=== PATIENT | female | born 1955 | race Caucasian/White ===

== ENCOUNTER 2024-01-23 23:01 | Inpatient (IN) | payer MEDICARE, OTHER, SELFPAY ==
[2024-01-23] VITALS (9 sets, daily range): BP systolic 92–142; BP diastolic 56–107; BMI 55.7
--- NOTE | 2024-01-23 19:40 | ED.GENMED ---
History of Present Illness
General
Chief Complaint: Change in Mental Status
Source: patient and care home
Exam Limitations: none
Time Seen by Provider: 01/23/24 19:18
Nursing documentation reviewed up to this point in time: agreed with
History of Present Illness
History of Present Illness:
68-year-old female with past medical history of hypertension hyperlipidemia, previous stroke, hypothyroidism, bipolar disorder presenting to the emergency department today with concerns of fatigue and sleepiness. Apparently she has been falling
asleep more than usual at her nursing facility. She believes that she may have cellulitis of her left leg which she cannot name the antibiotic that she is currently on she believes she is on an antibiotic at this point. The paperwork does indicate
potentially clindamycin. She is unsure how long she has been on this. She otherwise denies any specific issues. She denies any chest pain shortness of breath nausea vomiting numbness weakness abdominal pain palpitation. She does claim to feel
somewhat sleepy.
Past History
Past History
ED Past Medical History: Arrthythmia (Atrial fibrillation), CVA, GERD, HTN, Hypercholesterolemia, Hypothyroidism, Psychiatric (Bipolar, depression, ) and Other (Migraines, Gout, Cellulitis, Renal calculus, essential tremors, Sleep apnea, PVD)
ED Past Surgical History: Cholecystectomy
Social History
Tobacco: Non-smoker
Alcohol: None
Drug: None
Personal:
Living: care home (Rehab)
Review of Systems
Review of Systems
Allergies reviewed?: Yes
All Other Systems: ROS reviewed and negative except as documented in HPI and ROS
Phy Exam
Physical Exam
Physical Exam:
GENERAL: Alert , in no apparent distress
EYE: pupils equal and reactive
NECK: Supple, no significant adenopathy.
ENT: o/p clr, mmm.
CARDIAC: Regular rate and rhythm .
LUNGS: Clear breath sounds bilaterally, no acute respiratory distress, no wheezes/rales/rhonchi
ABDOMEN: Soft, without focal tenderness, no r/g, no cvat
NEUROLOGICAL: Alert and oriented, no focal neuro deficits
SKIN: Left leg is red and warm from the top of the foot spanning across the ankle joint to just below the knee mainly anteriorly tender throughout the area. She claims that this has been present over the past few weeks worsening over the past few
days. Warm and dry, skin intact.
MUSCULOSKELETAL: No edema, well perfused.
PSYCH: Normal and appropriate interaction.
Course
Orders/Labs/Results
Orders:
Orders
01/23/24 19:37
EKG- Treatment ONCE
0.9% Sodium Chloride 250 ml [Nss] 250 ml IV BOLUS
01/23/24 19:38
Chest [CR Chest - 2 Views ] Urgent
Comment:
Reason For Exam: cough
01/23/24 20:46
CBC/With Diff [Complete Blood Count/With Diff] Urgent
CMP [Comprehensive Metabolic Panel] Urgent
Lactic Acid Urgent
Magnesium Urgent
TSH Reflex To Free T4 Urgent
01/23/24 21:49
0.9% Sodium Chloride 500 ml [Nss] 500 ml IV BOLUS
01/23/24 22:35
Vancomycin [Vancocin] 2,000 mg 0.9% Sodium Chloride 500 ml [Nss] 500 ml IV NOW
01/23/24 22:37
Admit/Transfer Patient As Directed
Co-Sign Provider:
Level of Care: Inpatient admission
Assign to:: Telemetry
Physician / Group: silvina
Diagnosis: cellulitis
Reason for Telemetry: Arrhythmia
Date to Stop Telemetry: 01/26/24
Time to Stop Telemetry: 11:00
Reason for Hospitalization: cellulitis
Expected length of stay greater than two midnights?: Yes
ELOS- Estimated Length of Stay in days: 2
I certify the patient meets the requirements for IP care: Yes
Code Status As Directed
Resuscitation Status: Do not resuscitate
Reached after discussion with pt or family/Healthcare POA: Yes
DNR Bracelet Application ONCE
PRN Pain Medication Management As Directed
May give lesser potent ordered pain med per pt: Yes
preference::
Protocol:: Medication orders for pain may be administered in a
manner that supports deferring to patient preference
when the pt is:
- Requesting an ordered lesser potent pain medication.
Least to most potent pain medications are defined
as: acetaminophen < NSAID < tramadol < opioids
(morphine, oxycodone, hydromorphone).
- Requesting a lesser dose of the same medication IF
ORDERED.
- Requesting a less intrusive route of administration
if both routes are prescribed by the provider (PO <
IV).
01/24/24 02:52
Acetaminophen [Tylenol] 650 mg PO Q4HPRN PRN
Bisacodyl [Dulcolax] 10 mg RECTAL DAILYPRN PRN
Ipratropium/Albuterol Sulfate [Duoneb] 3 ml INH R Q6HPRN PRN
Magnesium Hydroxide [Milk of Magnesia] 30 ml PO DAILYPRN PRN
VANCOMYCIN Pharmacy to Dose [VANCOCIN Pharmacy to Dose] 1 each Pharmacy To Prepare [Call Pharmacy To Prepare] 0 ml IV PER PROTOCOL
clobetasol 1 applic TOPICAL [id number] PRN
zinc oxide 1 applic TOPICAL DAILYPRN PRN
01/24/24 02:52
Activity As Directed
Activity Level: As Tolerated
Vital Signs As Directed
Frequency: Per unit guidelines
CR Chest Portable - 1 View Urgent
Comment:
Reason For Exam: cough
Reason Study Needs to be Portable: Unable to Transport
DX Deep Vein Thrombosis Video Routine
01/24/24 03:28
Arterial Blood Gas Urgent
%Oxygen/Room Air: rrom
01/24/24 04:11
Loperamide [Imodium] 2 mg PO DAILYPRN PRN
01/24/24 04:17
Phosphate Enema [Fleet Phosphate Enema-Adult] 118 ml RECTAL DAILYPRN PRN
01/24/24 05:23
Complete Blood Count/With Diff IN AM
Comprehensive Metabolic Panel IN AM
01/24/24 08:00
Allopurinol [Zyloprim] 100 mg PO DAILY
Allopurinol [Zyloprim] 300 mg PO DAILY
Artificial Tears (Pf) [Refresh Eye Drops (Pf)] 1 drops BOTH EYES TID
Bumetanide [Bumex] 1.5 mg PO DAILY
Clopidogrel Bisulfate [Plavix] 75 mg PO DAILY
Colchicine 0.6 mg PO DAILY
Diclofenac Sodium [Voltaren 0.1% Eye Drops] 1 drop RIGHT EYE DAILY
Heparin 5,000 units SC Q12
Ibuprofen [Motrin] 600 mg PO TID
Levothyroxine [Synthroid] 50 mcg PO DAILY
Lidocaine [Lidocaine 4% Patch] 1 patch TOPICAL DAILY
Loratadine [Claritin] 10 mg PO DAILY
Pantoprazole [Protonix] 20 mg PO DAILY
Sennosides [Senokot] 8.6 mg PO BID
Tolterodine Extended Release [Detrol LA] 4 mg PO DAILY
Venlafaxine Extended Release [Effexor Xr] 150 mg PO DAILY
Venlafaxine Extended Release [Effexor Xr] 75 mg PO DAILY
Vitamin B Complex with C [B COMPLEX w/VITAMIN C] 1 caplet PO DAILY
cranberry extract [Ellura] 200 mg PO DAILY
fluticasone propionate 2 spray NASAL DAILY
omega-3 fatty acids 1,000 mg PO DAILY
01/24/24 Dinner
Regular
01/24/24 22:00
Ascorbic Acid [Vitamin C] 500 mg PO HS
Atorvastatin [Lipitor] 40 mg PO HS
Bumetanide [Bumex] 1 mg PO HS
Latanoprost [Xalatan Ophthalmic Solution] 1 drop BOTH EYES HS
10/11/24 11:00
DC Protocol for Telemetry ONCE
01/30/24 08:00
Ergocalciferol [Drisdol (Vitamin D2)] 50,000 units PO WEEKLY
Abnormal Lab Results
01/23/24
20:46
WBC 17.9 H 10^3/uL
(4.8-10.8)
RBC 4.03 L 10^6/uL
(4.20-5.40)
MCHC 32.7 L g/dL
(33.0-37.0)
RDW 15.7 H %
(11.5-14.5)
MPV 11.4 H fL
(7.4-10.4)
Abs Immat Gran (auto) 0.2 H 10^3/uL
(0-0.05)
Absolute Neuts (auto) 15.6 H 10^3/uL
(1.4-6.5)
Absolute Lymphs (auto) 1.1 L 10^3/uL
(1.2-3.4)
Absolute Monos (auto) 0.9 H 10^3/uL
(0.1-0.6)
Immature Gran % 1.0 H %
(0-0.5)
Neutrophils % 87.2 H %
(42.2-75.2)
Lymphocytes % 6.2 L %
(20.5-51.1)
Carbon Dioxide 31 H mmol/L
(22-30)
BUN 49 H mg/dl
(7-17)
Creatinine 1.3 H mg/dL
(0.6-1.0)
Glucose 110 H mg/dl
(70-99)
Total Protein 5.3 L g/dl
(6.3-8.2)
Albumin 3.3 L g/dl
(3.5-5.0)
01/23/24 20:46
01/23/24 20:46
Vital Signs
Initial and Last Documented VS:
Initial Vital Signs
BP
92/65
01/23/24 19:12
Last Documented Vital Signs
Temp Pulse Resp BP Pulse Ox
98.4 F 112 19 95/69 85
01/23/24 19:15 01/24/24 03:15 01/24/24 03:15 01/24/24 03:00 01/24/24 03:00
MDM/Problems Addressed
MDM/Problems Addressed:
68-year-old female presenting to the emergency department today with concerns of feeling fatigued at her nursing facility. Here she denies any specific symptoms she does claim to have some redness to her left leg that she believes is cellulitis she
may be on clindamycin but is unsure how long she has been taking this. She denies any specific fevers chest pain shortness of breath nausea vomiting numbness weakness. Has had some intermittent cough as well. Plan for labs, chest x-ray. Chest
x-ray without obvious pneumonia. Labs does show elevated white count of 17.9. Additionally creatinine about double her baseline BUN elevated to 49. Patient was given fluids. Concerning the patient did come in with slightly low blood pressure as
well as elevated white count and worsening redness and swelling to the left lower extremity despite taking clindamycin plan to admit for IV antibiotics and monitoring overnight.
*Critical Care Note
Total Time (30-74mins, 75-104mins- exclusive of procedures): Not Applicable
ED Attending Note
-
Portions of this chart may have been created with voice recognition software.� Occasional wrong word or��sound alike� substitutions may have occurred due to the inherent limitations of voice recognition software.
Discharge Plan
Departure
Patient Disposition: Admit
Date of Disposition: 01/23/24
Time of Disposition: 21:50
Admit to: Med/Surg
Admit to doctor: Hernando
Presentation/result/management discussed w/ accepting MD/DO: Hospitalist
Patient with high blood pressure during this ER visit?: No
Condition: Good
Covid-19: Not Applicable
Discharge Problem:
Cellulitis, leg
Interventions
Interventions:
*Risk Screen - Suicide Last Done: 01/23/24 19:15
*General Assessment Last Done: 01/23/24 19:15
*Neglect/Abuse Screening Last Done: 01/23/24 19:15
ED- Fall Risk Assessment Last Done: 01/23/24 19:26
*ED COVID-19 Vaccine History Last Done: 01/23/24 19:26
ED- Pulmonary Assessment Last Done: 01/23/24 19:26
ED- Neurological Assessment Last Done: 01/23/24 19:26
ED- Cardiac Assessment Last Done: 01/23/24 19:26
ED Swallowing Screen Last Done: 01/23/24 19:26
[2024-01-23] MEDS: NSS 250 IV (20:51)
[2024-01-23 20:54] LABS: % Basophils 0.2 % (0-2); % Eosinophils 0.1 % (0-6); % Lymphocytes 6.2 % (20.5-51.1); % Monocytes 5.3 % (1.7-9.3); % Neutrophils 87.2 % (42.2-75.2); Absolute Immature Granulocytes 0.2 10^3/uL (0-0.05); Absolute Lymphocytes 1.1 10^3/uL (1.2-3.4); Absolute Monocytes 0.9 10^3/uL (0.1-0.6); Absolute Neutrophils 15.6 10^3/uL (1.4-6.5); Hemoglobin 12.1 g/dL (12.0-16.0); Mean Corp Hgb Conc. 32.7 g/dL (33.0-37.0); Mean Corpuscular Volume 91.8 fL (81.0-99.0); Mean Platelet Volume 11.4 fL (7.4-10.4); Nucleated Red Blood Cells % 0 %; Platelet Count 160 10^3/uL (130-400); Red Blood Cell Count 4.03 10^6/uL (4.20-5.40); Red Cell Dist. Width 15.7 % (11.5-14.5); White Blood Cell Count 17.9 10^3/uL (4.8-10.8)
[2024-01-23 21:07] LABS: Lactic Acid 1.3 mmol/L (0.7-2.0)
[2024-01-23 21:09] LABS: ALT (SGPT) 20 U/L (0-35); AST (SGOT) 23 U/L (14-36); Albumin 3.3 g/dl (3.5-5.0); Alkaline Phosphatase 66 U/L (38-126); Blood Urea Nitrogen 49 mg/dl (7-17); Calcium 9.1 mg/dl (8.4-10.2); Carbon Dioxide 31 mmol/L (22-30); Chloride 100 mmol/L (98-107); Estimated Creatinine Clearance 55 ml/min; Glucose 110 mg/dl (70-99); Magnesium 1.9 mg/dl (1.6-2.3); Potassium 3.5 mmol/L (3.5-5.1); Sodium 142 mmol/L (135-145); Total Bilirubin 0.6 mg/dl (0.2-1.3); Total Protein 5.3 g/dl (6.3-8.2); eGFR 45.35
[2024-01-23 21:40] LABS: TSH Reflex To Free T4 0.91 uIU/ml (0.47-4.68)
--- NOTE | 2024-01-23 22:43 | HPS.HSE ---
Family Physician
-
Family Physician: Endy Tidwell
Chief Complaint
-
left leg infection
History of Present Illness
68-year-old female with past medical history of atrial fibrillation status post ablation 10 years ago, CVA, hypertension, hyperlipidemia, GERD, hypothyroidism, bipolar disorder, insomnia, obesity, chronic edema, insomnia presenting with fatigue and
sleepiness and confusion. Is been falling asleep more than usual at her nursing facility. She think she has cellulitis of her left leg and was apparently started on clindamycin which she has been on for 3 days.
Has been having dry cough for 2 weeks. He denies shortness of breath or chest pain.
Denies smoking or alcohol use.
Medical History
Past Medical History
Past Medical History: Reports Other (atrial fibrillation status post ablation 10 years ago, CVA, hypertension, hyperlipidemia, GERD, hypothyroidism, bipolar disorder, insomnia, obesity, chronic edema, insomnia )
Past Surgical History: Reports Other ( Cholecystectomy)
Social History
Tobacco: Non-smoker
Alcohol: None
Drug: None
Family History
Family History: Not pertinent
Allergies / Home Medications
Allergies reflects when Allergies were last updated in [employer].
Home Medications with original date entered in [employer]
Allergy/Medication List:
Allergies
Allergy/AdvReac Type Severity Reaction Status Date / Time
amlodipine Allergy Unknown Verified 02/17/22 02:39
amoxicillin Allergy Unknown Verified 02/17/22 02:39
cefuroxime Allergy Unknown Verified 02/17/22 02:39
cephalexin Allergy Unknown Verified 02/17/22 02:39
diltiazem Allergy Unknown Verified 02/17/22 02:39
hydrochlorothiazide Allergy Unknown Verified 02/17/22 02:39
nitrofurantoin Allergy Unknown Verified 02/17/22 02:39
rofecoxib Allergy Unknown Verified 02/17/22 02:39
sulfadimethoxine Allergy Unknown Verified 02/17/22 02:39
trimethoprim Allergy Unknown Verified 02/17/22 02:39
trovafloxacin Allergy Unknown Verified 02/17/22 02:39
Home Medications
clopidogrel 75 mg tablet 75 mg PO DAILY 02/25/21
levothyroxine 50 mcg tablet 50 mcg PO DAILY 02/25/21
loratadine 10 mg tablet 10 mg PO DAILY 02/25/21
magnesium hydroxide 400 mg/5 mL oral suspension 30 ml PO DAILYPRN PRN if no bm x 3 days 02/25/21
venlafaxine 150 mg capsule,extended release 24 hr (Effexor XR) 150 mg PO DAILY 02/25/21
allopurinol 100 mg tablet 100 mg PO DAILY ##0 02/16/22
colchicine 0.6 mg capsule 0.6 mg PO DAILY 02/16/22
ergocalciferol (vitamin D2) 1,250 mcg (50,000 unit) capsule (Drisdol) 1,250 mcg PO WEEKLY ##0 02/16/22
estradiol 0.01% (0.1 mg/gram) vaginal cream 1 appful vaginal MOWEFR ##0 02/16/22
loperamide 2 mg tablet (Imodium A-D) 2 mg PO PRN PRN diarrhea 02/17/22
metoprolol succinate 25 mg tablet,extended release 24 hr 25 mg PO DAILY 02/17/22
acetaminophen 325 mg tablet 650 mg PO Q4HPRN PRN mild pain/temp>100 01/23/24
allopurinol 300 mg tablet 300 mg PO DAILY 01/23/24
ascorbic acid (vitamin C) 500 mg tablet (Vitamin C) 500 mg PO HS 01/23/24
atorvastatin 40 mg tablet 40 mg PO HS 01/23/24
bisacodyl 10 mg rectal suppository (Dulcolax (bisacodyl)) 10 mg NE DAILYPRN PRN if mom is ineffective after 24hrs 01/23/24
bumetanide 1 mg tablet 1 mg PO HS 01/23/24
bumetanide 1 mg tablet 1.5 mg PO DAILY 01/23/24
clindamycin HCl 300 mg capsule 300 mg PO Q6H 01/23/24
clobetasol 0.05 % topical cream 1 applic topical [id number] PRN rash on abdominal,groin area 01/23/24
cranberry extract 200 mg capsule (Ellura) 200 mg PO DAILY 01/23/24
cyclobenzaprine 5 mg tablet 5 mg PO BID 01/23/24
diclofenac sodium 0.1 % eye drops 1 drp RIGHT EYE DAILY 01/23/24
divalproex 125 mg tablet,delayed release 125 mg PO BID 01/23/24
divalproex 500 mg tablet,delayed release 500 mg PO BID 01/23/24
fluticasone propionate 50 mcg/actuation nasal spray,suspension 2 spray intranasal DAILY 01/23/24
ibuprofen 600 mg tablet 600 mg PO TID 01/23/24
ipratropium 0.5 mg-albuterol 3 mg (2.5 mg base)/3 mL nebulization soln 3 ml inhalation R Q6HPRN PRN sob/cough 01/23/24
latanoprost 0.005 % eye drops 1 drp BOTH EYES HS 01/23/24
lidocaine 5 % topical patch (Lidoderm) 1 patch topical DAILY b/l knees 01/23/24
melatonin 10 mg tablet 10 mg PO HS 01/23/24
methenamine hippurate 1 gram tablet 1 g PO BID 01/23/24
omega-3 fatty acids 1,000 mg capsule 1,000 mg PO DAILY 01/23/24
pantoprazole 20 mg tablet,delayed release 20 mg PO DAILY 01/23/24
polyvinyl alcohol 1.4 % eye drops (Artificial Tears (polyvinyl alcohol)) 1 drp BOTH EYES TID 01/23/24
pregabalin 100 mg capsule 100 mg PO TID 01/23/24
sennosides 8.6 mg tablet (senna) 8.6 mg PO BID 01/23/24
sodium phosphates 19 gram-7 gram/118 mL enema (Fleet Enema) 118 ml NE DAILYPRN PRN if dulcolax is ineffective in 24hrs 01/23/24
venlafaxine 75 mg capsule,extended release 24 hr 75 mg PO DAILY 01/23/24
vibegron 75 mg tablet (Gemtesa) 75 mg PO DAILY 01/23/24
vitamin B complex 1 tab PO DAILY 01/23/24
zinc oxide 10 % topical cream 1 applic topical DAILYPRN PRN rash on groin 01/23/24
Review of Systems
-
History Source: Patient
A 12 point ROS was completed and negative except as noted: Yes
Constitutional: Reports No Symptoms
EENT: Reports No Symptoms
Respiratory: Reports No Symptoms
Cardiac: Reports No Symptoms
Abdomen/GI: Reports No Symptoms
: Reports No Symptoms
Musculoskeletal: Reports No Symptoms
Skin: Reports See HPI
Neurological: Reports No Symptoms
Endocrine: Reports No Symptoms
Hematologic/Lymphatic: Reports No Symptoms
Psych: Reports No Symptoms
Physical Exam
Vital Signs
Vital Signs
Temp Pulse Resp BP Pulse Ox
98.4 F 85 17 99/56 90
01/23/24 19:15 01/23/24 20:45 01/23/24 20:45 01/23/24 19:30 01/23/24 19:45
Physical Exam
General: Well Developed, Well Nourished and No Apparent Distress
HEENT: NormoCephalic, Moist mucous membranes and Atraumatic
Respiratory: Clear
Cardiac: S1/S2 and Regular Rhythm; No Murmur or Rub
GI: Soft, Non Tender, Non Distended and Normal Bowel Sounds; No Organomegaly
Rectal: Deferred by Provider
Musculoskeletal: No Clubbing, No Cyanosis and No Edema
Skin: Other (left leg erythema ); No Rash
Neuro: Nonfocal/grossly intact
Laboratory Results
-
01/23/24 20:46
01/23/24 20:46
Laboratory Results
Lactic Acid 1.3 mmol/L (0.7-2.0) 01/23/24 20:46
Total Bilirubin 0.6 mg/dl (0.2-1.3) 01/23/24 20:46
AST 23 U/L (14-36) 01/23/24 20:46
ALT 20 U/L (0-35) 01/23/24 20:46
Alkaline Phosphatase 66 U/L (38-126) 01/23/24 20:46
Data Reviewed
-
Lab Data: Labs Reviewed by me
Old Records: Reviewed
Impression/Plan
-
IMPRESSION:
PLAN:
# Left lower extremity cellulitis on chronic bilateral lower extremity lymphedema
-Not responded to clindamycin
-Vancomycin
# Left medial calf venous ulcer wound
-Does not appear infected
-Wound care consulted
# Altered mental status/confusion/lethargy secondary to infection versus rule out hypercarbia
-Also with cough for 2 weeks
-Check ABG
-Check chest x-ray
-Hold sedating medications including Depakote, Flexeril,
-Could be a component of oversedation from medications versus obesity hypoventilation
History of CVA
-Continue Plavix
Essential hypertension
Chronic lower extremity edema
-Continue Bumex
Atrial fibrillation status post ablation 10 years
-Continue metoprolol
Obstructive sleep apnea
Hyperlipidemia
-Continue statin
GERD
-Continue Protonix
Hypothyroidism
-Continue levothyroxine
Bipolar disorder
-Continue Depakote
-Continue venlafaxine
Insomnia
Obesity
Gout
-Continue allopurinol, colchicine
History of migraines
History of nephrolithiasis
Peripheral vascular disease
DNR
DVT prophylaxis- heparin
Regular diet
[2024-01-23] MEDS: VANCOCIN 540 MG IV (22:51)
[2024-01-23] MEDS: NSS 500 IV (22:52)
[2024-01-24] VITALS (60 sets, daily range): BP systolic 73–150; BP diastolic 44–116; PULSE 81–85; BMI 51.4
[2024-01-24 03:34] LABS: B.E. 4.3 mmol/L; HCO3 26.5 mmol/L (21-28); O2 Saturation % 95.8 % (94-98); O2 Therapy ROOM AIR; PCO2 31 mmHg (32-35); PO2 60 mmHg (83-108); pH 7.54 (7.35-7.45)
[2024-01-24 05:55] LABS: Hemoglobin 11.5 g/dL (12.0-16.0); Mean Corp Hgb Conc. 32.9 g/dL (33.0-37.0); Mean Corpuscular Hgb 30.8 pg (27.0-31.0); Mean Corpuscular Volume 93.8 fL (81.0-99.0); Mean Platelet Volume 11.7 fL (7.4-10.4); Platelet Count 143 10^3/uL (130-400); Red Blood Cell Count 3.73 10^6/uL (4.20-5.40); Red Cell Dist. Width 15.7 % (11.5-14.5); White Blood Cell Count 15.1 10^3/uL (4.8-10.8)
[2024-01-24 06:04] LABS: ALT (SGPT) 20 U/L (0-35); AST (SGOT) 25 U/L (14-36); Albumin 3.1 g/dl (3.5-5.0); Alkaline Phosphatase 58 U/L (38-126); Blood Urea Nitrogen 43 mg/dl (7-17); Calcium 8.9 mg/dl (8.4-10.2); Carbon Dioxide 27 mmol/L (22-30); Chloride 106 mmol/L (98-107); Estimated Creatinine Clearance 60 ml/min; Glucose 89 mg/dl (70-99); Potassium 3.5 mmol/L (3.5-5.1); Sodium 144 mmol/L (135-145); Total Bilirubin 0.7 mg/dl (0.2-1.3); eGFR 49.92
[2024-01-24 06:12] LABS: % Basophils 0.2 % (0-2); % Immature Granulocytes 2.7 % (0-0.5); % Lymphocytes 4.8 % (20.5-51.1); % Monocytes 4.9 % (1.7-9.3); % Neutrophils 87.4 % (42.2-75.2); Absolute Immature Granulocytes 0.4 10^3/uL (0-0.05); Absolute Lymphocytes 0.7 10^3/uL (1.2-3.4); Absolute Monocytes 0.7 10^3/uL (0.1-0.6); Absolute Neutrophils 13.2 10^3/uL (1.4-6.5); Nucleated Red Blood Cells % 0.1 %
[2024-01-24] MEDS: B COMPLEX w/VITAMIN C 1 CAPLET PO (09:21)
[2024-01-24] MEDS: PROTONIX 20 MG PO (09:21)
[2024-01-24] MEDS: COLCHICINE 0.6 MG PO (09:21)
[2024-01-24] MEDS: SENOKOT 8.6 MG PO ×2 (09:21→19:59)
[2024-01-24] MEDS: MOTRIN 600 MG PO (09:21)
[2024-01-24] MEDS: DETROL LA 4 MG PO (09:22)
[2024-01-24] MEDS: REFRESH EYE DROPS (PF) 1 DROPS BOTH EYES ×3 (09:22→21:37)
[2024-01-24] MEDS: ZYLOPRIM 100 MG PO (09:22)
[2024-01-24] MEDS: HEPARIN 5000 UNITS SC ×2 (09:22→19:58)
[2024-01-24] MEDS: ZYLOPRIM 300 MG PO (09:22)
[2024-01-24] MEDS: PLAVIX 75 MG PO (09:22)
[2024-01-24] MEDS: EFFEXOR XR 75 MG PO (09:22)
[2024-01-24] MEDS: LIDOCAINE 4% PATCH 1 PATCH TOPICAL (09:23)
[2024-01-24] MEDS: EFFEXOR XR 150 MG PO (09:23)
[2024-01-24] MEDS: TYLENOL 650 MG PO (09:30)
--- NOTE | 2024-01-24 10:18 | PHA.VAN.IN ---
Assessment
- Assessment
Renal Function: Appears elevated from baseline (SCR 1.3-->1.2 vs ~0.6 in 2021)
Plan
- Plan
Initial / Loading Dose: 2000mg - 01/22 22:51
Maintenance Regimen: dosing by level - given weight, will give additional 1250mg x1 today
Monitorin/10 06
Pharmacokinetics Vancomycin I
- -
Patient Age: 68
Patient Sex: Female
Vancomycin Day #: 1
Indication: Skin And Soft Tissue
Requesting Provider: Dr. Acevedo
Pertinent Antimicrobial Allergies:
amoxicillin - unknown
cefuroxime - unknown
cephalexin - unknown
sulfa/trimethoprim - unknown
trovafloxacin - unknown
nitrofurantoin - unknown
Height / Weight:
Height 5 ft 1 in
Actual Weight 133.6 kg
Pertinent Past Medical History: BMI ~56, PVD
- Vital Signs / Lab Results
Temp Pulse Resp BP Pulse Ox
100.5 F H 112 19 95/69 85
01/24/24 08:20 01/24/24 03:15 01/24/24 03:15 01/24/24 03:00 01/24/24 03:00
Lab Results - Hematology
01/23/24 01/24/24
20:46 05:23
WBC 17.9 H 15.1 H
Lab Results - Chemistry
01/23/24 01/24/24
20:46 05:23
BUN 49 H 43 H
Creatinine 1.3 H 1.2 H
Estimated Creat Clear 55 60
Albumin 3.3 L 3.1 L
01/23/24
20:46
Lactic Acid 1.3
[2024-01-24] MEDS: SYNTHROID PO (10:36)
[2024-01-24] MEDS: CLARITIN PO (10:36)
[2024-01-24] MEDS: EYE RIGHT EYE (10:36)
[2024-01-24] MEDS: VOLTAREN RIGHT EYE (10:36)
--- NOTE | 2024-01-24 11:06 | W.PN.HOSP.TC ---
Today's Communication/Plan
-
See plan
Assessment / Plan
Assessment / Plan
Impression:
Toxic metabolic encephalopathy likely multifactorial due to fever/lower extremity cellulitis, hypoxemia.
Acute CHF exacerbation unknown EF
Acute pulmonary edema
Acute kidney injury suspect cardiorenal state.
Bilateral acute on chronic lower extremity cellulitis complicated with venous stasis and peripheral edema.
Other conditions:
History of CVA with residual right-sided weakness
Essential hypertension.
Paroxysmal atrial fibrillation status post ablation.
Essential hypertension.
Dyslipidemia
Hypothyroidism
GERD.
Bipolar disorder
Insomnia
Gout
Morbid obesity due to excessive calories BMI 55.
Sleep apnea.
PAD by history.
UTI.
Multiple antibiotic allergies
Plan:
Toxic metabolic encephalopathy likely multifactorial due to fever/lower extremity cellulitis, hypoxemia.
No focal findings on neurologic exam.
Check CT scan of the head.
Please hold sedatives including Lyrica.
Okay to continue Depakote (pending level)
Treat hypoxia, CHF, cellulitis.
Acute CHF exacerbation unknown EF.
Exam with acute on chronic peripheral edema
Chest x-ray consistent with pulmonary edema.
Echocardiogram.
Cardiology consultation.
IV diuresis Lasix 60 mg IV twice daily while holding [employer] Bumex.
Follow daily weights
Obstructive sleep apnea plan
ABG on admission: pH 7.5 on room air
Noted with chronic compensatory metabolic alkalosis
Continue CPAP at night.
With hypoxia on ABG, bilateral lower extremity edema, tachycardia will workup for thromboembolic complications
Check lower extremity Doppler
VQ scan
Paroxysmal atrial fibrillation
Patient reports ablation and loop recorder placed at [facility].
ECG on admission sinus tach.
Continue metoprolol
Patient is not on anticoagulation prior to presentation.
Obtain medical records.
CV score 7 (CHF, hypertension, history of CVA, vascular disease, age, sex)
Would consider to initiate factor Xa inhibitor (patient reports no prior history of hemorrhagic complications)
History of CVA with residual weakness and ambulatory dysfunction.
Continue Plavix per
Continue statin
Check hemoglobin A1c
Acute kidney injury
Suspect cardiorenal state
Monitor renal function with diuresis per
Consider nephrology evaluation.
Avoid NSAIDs
Lower extremity cellulitis, bilateral, complicated with chronic venous stasis and peripheral edema.
Right lower extremity/calf superficial wound with no evidence of infection.
Vancomycin, dose adjusted to renal function.
Wound care.
IV diuresis
Hypothyroidism on replacement
Update TSH
Gout
Continue colchicine/allopurinol
Bipolar disorder
Continue Depakote with caution for oversedation.
Check Depakote level.
Continue meloxicam
Chronic pain.
Hold Lyrica given oversedation
Anticipated Discharge: > 48 hours
Subjective/Interval History
-
Date of Service: January 24, 2024
Objective Data
-
Labs:
Laboratory Results
01/24/24 01/24/24
03:28 05:23
WBC 15.1 H
Hgb 11.5 L
Hct 35.0 L
Plt Count 143
HCO3 26.5
Sodium 144
Potassium 3.5
Chloride 106
Carbon Dioxide 27
BUN 43 H
Creatinine 1.2 H
Glucose 89
Calcium 8.9
Total Bilirubin 0.7
AST 25
ALT 20
Alkaline Phosphatase 58
Vital Signs:
Vital Signs
Temp Pulse Resp BP Pulse Ox
100.5 F H 112 19 95/69 94
01/24/24 08:20 01/24/24 03:15 01/24/24 03:15 01/24/24 03:00 01/24/24 10:39
Physical Exam
-
General: Well Developed and No Apparent Distress
HEENT: Normocephalic, Atraumatic and Moist Mucous Membranes
Respiratory: Clear to Auscultation
Cardiac: Regular Rhythm and S1/S2; Negative Murmur, Rub or Gallop
GI: Soft, Nontender, Nondistended and Normal Bowel Sounds; Negative Organomegaly
Rectal: Deferred by Provider
Musculoskeletal: No Clubbing, No Cyanosis and No Edema
Skin: Negative Rash
Neuro: Awake, Alert, Oriented and Nonfocal/Grossly Intact
[2024-01-24 11:40] LABS: Depakane 28.8 ug/ml (50.0-120.0)
--- NOTE | 2024-01-24 11:44 | CON.CAR ---
Consultation
Consultation Request
Date/Time Consultation Requested: 01/24/2024
Date/Time Consultation Performed: 01/24/2024
Requesting Provider: Dr. Shrestha
Performing Provider: Keeley Bradley PA-C for Dr. Mendez
Medical History
Allergies / Home Medications
Allergy/AdvReac Type Severity Reaction Status Date / Time
amlodipine Allergy Unknown Verified 02/17/22 02:39
amoxicillin Allergy Unknown Verified 02/17/22 02:39
cefuroxime Allergy Unknown Verified 02/17/22 02:39
cephalexin Allergy Unknown Verified 02/17/22 02:39
diltiazem Allergy Unknown Verified 02/17/22 02:39
hydrochlorothiazide Allergy Unknown Verified 02/17/22 02:39
nitrofurantoin Allergy Unknown Verified 02/17/22 02:39
rofecoxib Allergy Unknown Verified 02/17/22 02:39
sulfadimethoxine Allergy Unknown Verified 02/17/22 02:39
trimethoprim Allergy Unknown Verified 02/17/22 02:39
trovafloxacin Allergy Unknown Verified 02/17/22 02:39
�Medication �Instructions �Recorded �Confirmed �Type
clopidogrel 75 mg tablet 75 mg PO DAILY 02/25/21 01/23/24 History
levothyroxine 50 mcg tablet 50 mcg PO DAILY 02/25/21 01/23/24 History
loratadine 10 mg tablet 10 mg PO DAILY 02/25/21 01/23/24 History
magnesium hydroxide 400 mg/5 mL 30 ml PO DAILYPRN PRN if no bm x 3 02/25/21 01/23/24 History
oral suspension days
venlafaxine 150 mg 150 mg PO DAILY 02/25/21 01/23/24 History
capsule,extended release 24 hr
(Effexor XR)
allopurinol 100 mg tablet 100 mg PO DAILY ##0 02/16/22 01/23/24 History
colchicine 0.6 mg capsule 0.6 mg PO DAILY 02/16/22 01/23/24 History
ergocalciferol (vitamin D2) 1,250 1,250 mcg PO WEEKLY ##0 02/16/22 01/23/24 History
mcg (50,000 unit) capsule (Drisdol)
estradiol 0.01% (0.1 mg/gram) 1 appful vaginal MOWEFR ##0 02/16/22 01/23/24 History
vaginal cream
loperamide 2 mg tablet (Imodium 2 mg PO PRN PRN diarrhea 02/17/22 01/23/24 History
A-D)
metoprolol succinate 25 mg 25 mg PO DAILY 02/17/22 01/23/24 History
tablet,extended release 24 hr
acetaminophen 325 mg tablet 650 mg PO Q4HPRN PRN mild 01/23/24 01/23/24 History
pain/temp>100
allopurinol 300 mg tablet 300 mg PO DAILY 01/23/24 01/23/24 History
ascorbic acid (vitamin C) 500 mg 500 mg PO HS 01/23/24 01/23/24 History
tablet (Vitamin C)
atorvastatin 40 mg tablet 40 mg PO HS 01/23/24 01/23/24 History
bisacodyl 10 mg rectal suppository 10 mg [place] DAILYPRN PRN if mom is 01/23/24 01/23/24 History
(Dulcolax (bisacodyl)) ineffective after 24hrs
bumetanide 1 mg tablet 1 mg PO HS 01/23/24 01/23/24 History
bumetanide 1 mg tablet 1.5 mg PO DAILY 01/23/24 01/23/24 History
clindamycin HCl 300 mg capsule 300 mg PO Q6H 01/23/24 01/23/24 History
clobetasol 0.05 % topical cream 1 applic topical [id number] PRN rash 01/23/24 01/23/24 History
on abdominal,groin area
cranberry extract 200 mg capsule 200 mg PO DAILY 01/23/24 01/23/24 History
(Ellura)
cyclobenzaprine 5 mg tablet 5 mg PO BID 10/08/24 10/08/24 History
diclofenac sodium 0.1 % eye drops 1 drp RIGHT EYE DAILY 01/23/24 01/23/24 History
divalproex 125 mg tablet,delayed 125 mg PO BID 01/23/24 01/23/24 History
release
divalproex 500 mg tablet,delayed 500 mg PO BID 01/23/24 01/23/24 History
release
fluticasone propionate 50 2 spray intranasal DAILY 01/23/24 01/23/24 History
mcg/actuation nasal
spray,suspension
ibuprofen 600 mg tablet 600 mg PO TID 01/23/24 01/23/24 History
ipratropium 0.5 mg-albuterol 3 mg 3 ml inhalation R Q6HPRN PRN 01/23/24 01/23/24 History
(2.5 mg base)/3 mL nebulization sob/cough
soln
latanoprost 0.005 % eye drops 1 drp BOTH EYES HS 01/23/24 01/23/24 History
lidocaine 5 % topical patch 1 patch topical DAILY b/l knees 01/23/24 01/23/24 History
(Lidoderm)
melatonin 10 mg tablet 10 mg PO HS 01/23/24 01/23/24 History
methenamine hippurate 1 gram tablet 1 g PO BID 01/23/24 01/23/24 History
omega-3 fatty acids 1,000 mg 1,000 mg PO DAILY 01/23/24 01/23/24 History
capsule
pantoprazole 20 mg tablet,delayed 20 mg PO DAILY 01/23/24 01/23/24 History
release
polyvinyl alcohol 1.4 % eye drops 1 drp BOTH EYES TID 01/23/24 01/23/24 History
(Artificial Tears (polyvinyl
alcohol))
pregabalin 100 mg capsule 100 mg PO TID 01/23/24 01/23/24 History
sennosides 8.6 mg tablet (senna) 8.6 mg PO BID 01/23/24 01/23/24 History
sodium phosphates 19 gram-7 118 ml PA DAILYPRN PRN if dulcolax 01/23/24 01/23/24 History
gram/118 mL enema (Fleet Enema) is ineffective in 24hrs
venlafaxine 75 mg capsule,extended 75 mg PO DAILY 01/23/24 01/23/24 History
release 24 hr
vibegron 75 mg tablet (Gemtesa) 75 mg PO DAILY 01/23/24 01/23/24 History
vitamin B complex 1 tab PO DAILY 01/23/24 01/23/24 History
zinc oxide 10 % topical cream 1 applic topical DAILYPRN PRN rash 01/23/24 01/23/24 History
on groin
Physical Exam
Vital Signs
Temp Pulse Resp BP Pulse Ox
100.5 F H 112 19 95/69 94
01/24/24 08:20 01/24/24 03:15 01/24/24 03:15 01/24/24 03:00 01/24/24 10:39
Lab Results
01/24/24 05:23
01/24/24 05:23
[2024-01-24] MEDS: TOPROL XL PO (12:59)
[2024-01-24] MEDS: VANCOCIN 275 MG IV (13:00)
--- NOTE | 2024-01-24 14:05 | PTCARENOTE ---
Pt hypotensive (86/52) and more lethargic. Does respond to verbal stimuli. Hospitalist aware - okay to wait until tomorrow for VQ scan d/t BP issues. Lower extremity doppler negative.
--- NOTE | 2024-01-24 14:06 | CON.CAR ---
Addendum entered and electronically signed by Kirk Samayoa MD 01/24/24 16:42:
I saw and examined the patient.
The TROUBLE SHOOTER's note was reviewed and I agree with the note.
Comment: While her pBNP and CXR are suggestive of heart failure her ABG is not typical of heart failure, she is laying supine without dyspnea and clinically sepsis is a major concern. I would not hold back on modest fluid bolus as pressors and ATBs
are started. Once more stable we will provide diuresis. Her edema has been felt to be lymphedema but clearly a component of heart failure seems likely now.
Original Note:
Consultation
Consultation Request
Date/Time Consultation Requested: 01/24/24 1038
Date/Time Consultation Performed: 01/24/24 1430
Requesting Provider: Dr. Aranda
Performing Provider: Dalila PINEDO for Dr. Samayoa
Reason for Consultation: CHF
Medical History
-
Chief Complaint: fatigue, LLE cellulitis
History of Present Illness:
68 y/o female with obesity, AFIB 2012 (in setting of urosepsis)- briefly on warfarin which was stopped [id number] score of 1 at the time, stroke 2020, loop recorder to assess for recurrent afib (there has been none), bipolar disorder, and lymphedema
who is here for fatigue and LLE cellulitis. We are consulted since pulmonary edema noted on CXR and there is concern for acute HF. Originally echo and IV lasix were ordered. However, at the time of my assessment, she is lethargic and hypotensive and
appears to be septic. She is in no distress and denies any CP or SOB. Monitor shows SR/ST with PAC's.
Past Medical History
Past Medical History: Arrhythmias, CVA, Psychiatric (bipolar disorder) and Other (obesity, as above)
Social History
Living: Retirement
Allergies / Home Medications
Allergy/AdvReac Type Severity Reaction Status Date / Time
amlodipine Allergy Unknown Verified 02/17/22 02:39
amoxicillin Allergy Unknown Verified 02/17/22 02:39
cefuroxime Allergy Unknown Verified 02/17/22 02:39
cephalexin Allergy Unknown Verified 02/17/22 02:39
diltiazem Allergy Unknown Verified 02/17/22 02:39
hydrochlorothiazide Allergy Unknown Verified 02/17/22 02:39
nitrofurantoin Allergy Unknown Verified 02/17/22 02:39
rofecoxib Allergy Unknown Verified 02/17/22 02:39
sulfadimethoxine Allergy Unknown Verified 02/17/22 02:39
trimethoprim Allergy Unknown Verified 02/17/22 02:39
trovafloxacin Allergy Unknown Verified 02/17/22 02:39
�Medication �Instructions �Recorded �Confirmed �Type
clopidogrel 75 mg tablet 75 mg PO DAILY 02/25/21 01/23/24 History
levothyroxine 50 mcg tablet 50 mcg PO DAILY 02/25/21 01/23/24 History
loratadine 10 mg tablet 10 mg PO DAILY 02/25/21 01/23/24 History
magnesium hydroxide 400 mg/5 mL 30 ml PO DAILYPRN PRN if no bm x 3 02/25/21 01/23/24 History
oral suspension days
venlafaxine 150 mg 150 mg PO DAILY 02/25/21 01/23/24 History
capsule,extended release 24 hr
(Effexor XR)
allopurinol 100 mg tablet 100 mg PO DAILY ##0 02/16/22 01/23/24 History
colchicine 0.6 mg capsule 0.6 mg PO DAILY 02/16/22 01/23/24 History
ergocalciferol (vitamin D2) 1,250 1,250 mcg PO WEEKLY ##0 02/16/22 01/23/24 History
mcg (50,000 unit) capsule (Drisdol)
estradiol 0.01% (0.1 mg/gram) 1 appful vaginal MOWEFR ##0 02/16/22 01/23/24 History
vaginal cream
loperamide 2 mg tablet (Imodium 2 mg PO PRN PRN diarrhea 02/17/22 01/23/24 History
A-D)
metoprolol succinate 25 mg 25 mg PO DAILY 02/17/22 01/23/24 History
tablet,extended release 24 hr
acetaminophen 325 mg tablet 650 mg PO Q4HPRN PRN mild 01/23/24 01/23/24 History
pain/temp>100
allopurinol 300 mg tablet 300 mg PO DAILY 01/23/24 01/23/24 History
ascorbic acid (vitamin C) 500 mg 500 mg PO HS 01/23/24 01/23/24 History
tablet (Vitamin C)
atorvastatin 40 mg tablet 40 mg PO HS 01/23/24 01/23/24 History
bisacodyl 10 mg rectal suppository 10 mg [place] DAILYPRN PRN if mom is 01/23/24 01/23/24 History
(Dulcolax (bisacodyl)) ineffective after 24hrs
bumetanide 1 mg tablet 1 mg PO HS 01/23/24 01/23/24 History
bumetanide 1 mg tablet 1.5 mg PO DAILY 01/23/24 01/23/24 History
clindamycin HCl 300 mg capsule 300 mg PO Q6H 01/23/24 01/23/24 History
clobetasol 0.05 % topical cream 1 applic topical [id number] PRN rash 01/23/24 01/23/24 History
on abdominal,groin area
cranberry extract 200 mg capsule 200 mg PO DAILY 01/23/24 01/23/24 History
(Ellura)
cyclobenzaprine 5 mg tablet 5 mg PO BID 01/23/24 01/23/24 History
diclofenac sodium 0.1 % eye drops 1 drp RIGHT EYE DAILY 01/23/24 01/23/24 History
divalproex 125 mg tablet,delayed 125 mg PO BID 01/23/24 01/23/24 History
release
divalproex 500 mg tablet,delayed 500 mg PO BID 01/23/24 01/23/24 History
release
fluticasone propionate 50 2 spray intranasal DAILY 01/23/24 01/23/24 History
mcg/actuation nasal
spray,suspension
ibuprofen 600 mg tablet 600 mg PO TID 01/23/24 01/23/24 History
ipratropium 0.5 mg-albuterol 3 mg 3 ml inhalation R Q6HPRN PRN 01/23/24 01/23/24 History
(2.5 mg base)/3 mL nebulization sob/cough
soln
latanoprost 0.005 % eye drops 1 drp BOTH EYES HS 01/23/24 01/23/24 History
lidocaine 5 % topical patch 1 patch topical DAILY b/l knees 01/23/24 01/23/24 History
(Lidoderm)
melatonin 10 mg tablet 10 mg PO HS 01/23/24 01/23/24 History
methenamine hippurate 1 gram tablet 1 g PO BID 01/23/24 01/23/24 History
omega-3 fatty acids 1,000 mg 1,000 mg PO DAILY 01/23/24 01/23/24 History
capsule
pantoprazole 20 mg tablet,delayed 20 mg PO DAILY 01/23/24 01/23/24 History
release
polyvinyl alcohol 1.4 % eye drops 1 drp BOTH EYES TID 01/23/24 01/23/24 History
(Artificial Tears (polyvinyl
alcohol))
pregabalin 100 mg capsule 100 mg PO TID 01/23/24 01/23/24 History
sennosides 8.6 mg tablet (senna) 8.6 mg PO BID 01/23/24 01/23/24 History
sodium phosphates 19 gram-7 118 ml [place] DAILYPRN PRN if dulcolax 01/23/24 01/23/24 History
gram/118 mL enema (Fleet Enema) is ineffective in 24hrs
venlafaxine 75 mg capsule,extended 75 mg PO DAILY 01/23/24 01/23/24 History
release 24 hr
vibegron 75 mg tablet (Gemtesa) 75 mg PO DAILY 01/23/24 01/23/24 History
vitamin B complex 1 tab PO DAILY 01/23/24 01/23/24 History
zinc oxide 10 % topical cream 1 applic topical DAILYPRN PRN rash 01/23/24 01/23/24 History
on groin
Review of Systems
-
History Source: Patient and Other (and chart)
Constitutional: Fatigue
Musculoskeletal: Edema
Skin: Other (redness to LE)
Physical Exam
Vital Signs
Temp Pulse Resp BP Pulse Ox
98.6 F 102 20 86/53 94
01/24/24 12:48 01/24/24 13:50 01/24/24 13:50 01/24/24 13:51 01/24/24 10:39
Lab Results
01/24/24 05:23
01/24/24 05:23
Physical Exam
General: Well Developed and No Apparent Distress
HEENT: Normocephalic and Anicteric
Respiratory: Clear and Other (on O2 by NC)
Cardiac: Regular Rhythm (SR/ ST PAC's)
Musculoskeletal: Edema (moderate BLE edema)
Skin: Other (redness LLE )
Neuro: AO x 3 (she is AAO x 3, but is lethargic )
Psych: Calm
Impression / Plan
-
LLE cellulitis, sepsis:
-treatment of sepsis per primary team- on IV abx, received IV fluids. May need pressors.
Pulmonary edema on CXR:
-BNP elevated and weight up and LE edema noted (has known lymphedema), so likely component of acute HF, but she is in no respiratory distress and is septic, so will hold on any lasix for now
-echo pending
hx PAF:
-remote history of afib 2012 in setting of sepsis, none seen on loop- plan has been to place her on OAC if any recurrent AFIB.
-tele with SR/ST with PAC's
Hx CVA 2020:
-on plavix, statin
ABRAHAN:
-monitor renal function
Data Reviewed
-
EKG: Tracing Personally Visualized and interpreted (ST with PVC's and PAC's 115 BPM)
Radiology: Report Reviewed by me (CXR: Mild pulmonary interstitial edema, progressed.)
Medical Tests (Nuc Med, Echo etc): Report Reviewed by me (echo report 2020: TDS but normal LV and RV size and function, aortic sclerosis, MAC with mild MR, mild DD)
Labs: Labs Reviewed by me
--- NOTE | 2024-01-24 14:53 | W.PN.UPDATE ---
Update Note
Progress Note Update
Been increasingly lethargic and hypotensive
Concern for evolving sepsis.
Possible sources respiratory (bilateral infiltrate suggestive CHF versus pneumonia), versus bilateral lower extremity cellulitis.
Blood cultures
Lactic acid level
Broaden antibiotic spectrum with addition of Azactam. Already on vancomycin. Noted with multiple antibiotic allergies unable to obtain details given patient lethargy.
Consider IV fluid bolus, although marginal oxygenation with high risk for intubation.
Initiate Levophed.
Transfer to ICU
Discussed with developmental services worker.
Lower extremity Doppler negative for DVT.
VQ scan pending unable to perform given hypotension.
Remains on subcutaneous heparin
Echo pending
[2024-01-24 15:08] LABS: Urine Albumin Trace (Neg - Trace); Urine Bilirubin 1+ (Negative); Urine Character Clear (Clear); Urine Color Yellow; Urine Glucose Negative (Negative); Urine Ketone Trace (Negative); Urine Leukocyte 2+ (Negative); Urine Nitrite Negative (Negative); Urine Occult Blood 1+ (Negative); Urine Urobilinogen 1+ (Neg - 1+)
[2024-01-24 15:17] LABS: Urine Squamous Cell >30 /LPF (Few)
[2024-01-24 15:19] LABS: Urine Bacteria Many (Negative); Urine White Cell 90-100 /HPF (0-5)
[2024-01-24 15:19] LABS: Lactic Acid 1.4 mmol/L (0.7-2.0)
[2024-01-24 15:20] LABS: HDL Cholesterol 47 mg/dl; LDL Cholesterol, Calculated 15 mg/dl; Total Cholesterol 80 mg/dl (50-199); Triglyceride 92 mg/dl (10-149); Very Low Density Lipoprotein 18 mg/dl (0-30)
--- NOTE | 2024-01-24 15:31 | CON.INTV ---
Consultation
Consultation Request
Date/Time Consultation Requested: 01/24/2024
Date/Time Consultation Performed: 01/24/2024
Requesting Provider: Dr. Aranda
Performing Provider: Dr. Hilario Smith
Reason for Consultation: Acute hypoxemic respiratory failure/hypotension
Medical History
-
History of Present Illness:
68-year-old female with past medical history significant for atrial fibrillation status post ablation 10 years ago, CVA, hypertension, hyperlipidemia, GERD, hypothyroidism, bipolar disorder, obesity, insomnia, chronic lymphedema, [facility]
resident who presents with fatigue and confusion. Apparently at the nursing facility patient was more lethargic than usual. In the outpatient setting about 3 days ago she was started on clindamycin for left lower extremity cellulitis.
For the last 2 weeks has been complaining of cough without significant phlegm production.
Patient remained in the emergency room overnight.
Subsequently developed hypoxemia. Chest x-ray consistent with pulmonary edema.
She was noted to be in acute kidney injury as well.
Subsequently developed increased lethargy and hypotension. Febrile suspected evolving severe septic with shock. Levophed was initiated and patient has been transferred to the critical care unit for further care.
Past Medical History
Past Medical History: Other (See assessment and plan)
Social History
Tobacco: Non-smoker
Alcohol: None
Drug: None
Living: [facility]
Family History
Family History: Reviewed & Not Pertinent
Allergies / Home Medications
Allergies
Allergy/AdvReac Type Severity Reaction Status Date / Time
amlodipine Allergy Unknown Verified 02/17/22 02:39
amoxicillin Allergy Unknown Verified 02/17/22 02:39
cefuroxime Allergy Unknown Verified 02/17/22 02:39
cephalexin Allergy Unknown Verified 02/17/22 02:39
diltiazem Allergy Unknown Verified 02/17/22 02:39
hydrochlorothiazide Allergy Unknown Verified 02/17/22 02:39
nitrofurantoin Allergy Unknown Verified 02/17/22 02:39
rofecoxib Allergy Unknown Verified 02/17/22 02:39
sulfadimethoxine Allergy Unknown Verified 02/17/22 02:39
trimethoprim Allergy Unknown Verified 02/17/22 02:39
trovafloxacin Allergy Unknown Verified 02/17/22 02:39
Home Medications
�Medication �Instructions �Recorded �Confirmed �Last Taken �Type
clopidogrel 75 mg tablet 75 mg PO DAILY 02/25/21 01/23/24 Unknown History
levothyroxine 50 mcg tablet 50 mcg PO DAILY 02/25/21 01/23/24 Unknown History
loratadine 10 mg tablet 10 mg PO DAILY 02/25/21 01/23/24 Unknown History
magnesium hydroxide 400 mg/5 mL 30 ml PO DAILYPRN PRN if no bm x 3 02/25/21 01/23/24 Unknown History
oral suspension days
venlafaxine 150 mg 150 mg PO DAILY 02/25/21 01/23/24 Unknown History
capsule,extended release 24 hr
(Effexor XR)
allopurinol 100 mg tablet 100 mg PO DAILY ##0 02/16/22 01/23/24 Unknown History
colchicine 0.6 mg capsule 0.6 mg PO DAILY 02/16/22 01/23/24 Unknown History
ergocalciferol (vitamin D2) 1,250 1,250 mcg PO WEEKLY ##0 02/16/22 01/23/24 Unknown History
mcg (50,000 unit) capsule (Drisdol)
estradiol 0.01% (0.1 mg/gram) 1 appful vaginal MOWEFR ##0 02/16/22 01/23/24 Unknown History
vaginal cream
loperamide 2 mg tablet (Imodium 2 mg PO PRN PRN diarrhea 02/17/22 01/23/24 Unknown History
A-D)
metoprolol succinate 25 mg 25 mg PO DAILY 02/17/22 01/23/24 Unknown History
tablet,extended release 24 hr
acetaminophen 325 mg tablet 650 mg PO Q4HPRN PRN mild 01/23/24 01/23/24 Unknown History
pain/temp>100
allopurinol 300 mg tablet 300 mg PO DAILY 01/23/24 01/23/24 Unknown History
ascorbic acid (vitamin C) 500 mg 500 mg PO HS 01/23/24 01/23/24 Unknown History
tablet (Vitamin C)
atorvastatin 40 mg tablet 40 mg PO HS 01/23/24 01/23/24 Unknown History
bisacodyl 10 mg rectal suppository 10 mg VA DAILYPRN PRN if mom is 01/23/24 01/23/24 Unknown History
(Dulcolax (bisacodyl)) ineffective after 24hrs
bumetanide 1 mg tablet 1 mg PO HS 01/23/24 01/23/24 Unknown History
bumetanide 1 mg tablet 1.5 mg PO DAILY 01/23/24 01/23/24 Unknown History
clindamycin HCl 300 mg capsule 300 mg PO Q6H 01/23/24 01/23/24 Unknown History
clobetasol 0.05 % topical cream 1 applic topical [id number] PRN rash 01/23/24 01/23/24 Unknown History
on abdominal,groin area
cranberry extract 200 mg capsule 200 mg PO DAILY 01/23/24 01/23/24 Unknown History
(Ellura)
cyclobenzaprine 5 mg tablet 5 mg PO BID 01/23/24 01/23/24 Unknown History
diclofenac sodium 0.1 % eye drops 1 drp RIGHT EYE DAILY 01/23/24 01/23/24 Unknown History
divalproex 125 mg tablet,delayed 125 mg PO BID 01/23/24 01/23/24 Unknown History
release
divalproex 500 mg tablet,delayed 500 mg PO BID 01/23/24 01/23/24 Unknown History
release
fluticasone propionate 50 2 spray intranasal DAILY 01/23/24 01/23/24 Unknown History
mcg/actuation nasal
spray,suspension
ibuprofen 600 mg tablet 600 mg PO TID 01/23/24 01/23/24 Unknown History
ipratropium 0.5 mg-albuterol 3 mg 3 ml inhalation R Q6HPRN PRN 01/23/24 01/23/24 Unknown History
(2.5 mg base)/3 mL nebulization sob/cough
soln
latanoprost 0.005 % eye drops 1 drp BOTH EYES HS 01/23/24 01/23/24 Unknown History
lidocaine 5 % topical patch 1 patch topical DAILY b/l knees 01/23/24 01/23/24 Unknown History
(Lidoderm)
melatonin 10 mg tablet 10 mg PO HS 01/23/24 01/23/24 Unknown History
methenamine hippurate 1 gram tablet 1 g PO BID 01/23/24 01/23/24 Unknown History
omega-3 fatty acids 1,000 mg 1,000 mg PO DAILY 01/23/24 01/23/24 Unknown History
capsule
pantoprazole 20 mg tablet,delayed 20 mg PO DAILY 01/23/24 01/23/24 Unknown History
release
polyvinyl alcohol 1.4 % eye drops 1 drp BOTH EYES TID 01/23/24 01/23/24 Unknown History
(Artificial Tears (polyvinyl
alcohol))
pregabalin 100 mg capsule 100 mg PO TID 01/23/24 01/23/24 Unknown History
sennosides 8.6 mg tablet (senna) 8.6 mg PO BID 01/23/24 01/23/24 Unknown History
sodium phosphates 19 gram-7 118 ml VA DAILYPRN PRN if dulcolax 01/23/24 01/23/24 Unknown History
gram/118 mL enema (Fleet Enema) is ineffective in 24hrs
venlafaxine 75 mg capsule,extended 75 mg PO DAILY 01/23/24 01/23/24 Unknown History
release 24 hr
vibegron 75 mg tablet (Gemtesa) 75 mg PO DAILY 01/23/24 01/23/24 Unknown History
vitamin B complex 1 tab PO DAILY 01/23/24 01/23/24 Unknown History
zinc oxide 10 % topical cream 1 applic topical DAILYPRN PRN rash 01/23/24 01/23/24 Unknown History
on groin
Review of Systems
-
History Source: Patient
All other systems: Negative unless noted
Vitals / Labs / Diagnostic Testing
Vital Signs
Temp Pulse Resp BP Pulse Ox
98.6 F 102 20 86/53 94
01/24/24 12:48 01/24/24 13:50 01/24/24 13:50 01/24/24 13:51 01/24/24 10:39
Lab Data
01/24/24 05:23
01/24/24 05:23
Laboratory Results
01/24/24
03:28
pH 7.54 H
pCO2 31 L
pO2 60 L
HCO3 26.5
O2 Delivery Level Room air
Diagnostic Testing:
Physical Exam
-
HEENT: Normocephalic
Cardiovascular: S1/S2
Respiratory: Clear
GI: Distended (Obese )
Neurology: Other (Drowsy, arousable. Following commands. Moving 4 extremities. Coughing on demand.)
Skin: Warm and Other (Lower extremity distally erythematous. 2+ bilateral edema)
Assessment
-
68-year-old woman from a [facility], multiple medical problems, initially admitted with lethargy, change in mental status possible cellulitis. Progressed to hypoxemia, further lethargy, hypotension requiring vasopressors. Transferred to the
critical care unit on 01/24/2024.
Hypotension/shock-possibly septic
Lactic acid 1.4
Leukocytosis/fever
UA: 90-100 white blood cells/many bacteria/2+ leukocyte Estrace/negative nitrates.>30 epithelial cells
Left lower extremity cellulitis
Has been on clindamycin in the outpatient setting
Acute hypoxemic respiratory failure:
proBNP 5500/negative troponin-acute on chronic heart failure with preserved ejection fraction suspected
Echocardiogram 01/24/2024: Normal LVEF. Normal RV function. Mild pulmonary hypertension.
Lower extremity Dopplers: No evidence for DVT bilaterally 01/24/2024
Chest x-ray consistent with mild pulmonary edema.
Toxic metabolic encephalopathy-either from medications or sepsis.
ABG 01/24/2024: 7 point 50/31/60-respiratory alkalosis
Normal TSH
Component of oversedation a possibility as the patient has multiple psychoactive drugs.
Acute kidney injury-possibly prerenal
Conditions present prior admission:
History of urinary infection with Klebsiella 01/04/2022.
Chronic lymphedema
Obesity
History of CVA-residual right-sided weakness.
Hypertension
Atrial fibrillation status post ablation 10 years ago
Obstructive sleep apnea-on CPAP therapy 12 cm of water
Hyperlipidemia
GERD
Hypothyroidism
Bipolar disorder
Chronic insomnia
History of gout
History of migraines
History of nephrolithiasis
Peripheral vascular disease
DNR status
Assessment and plan:
Critically ill, transferred to the critical care unit for vasopressor requirements.
Possible septic shock given low-grade fevers-source may be cellulitis of the lower extremity.
Antibiotics transition to aztreonam/vancomycin.
Urinalysis is abnormal suggestive of UTI. Patient was straight cath by emergency room RN.
Follow blood cultures
Urine culture
Chest x-ray with suggestion of pulmonary vascular congestion. No definitive pneumonia.
-
Mild hypoxemia 2 L: Suspect likely due to pulmonary edema as well as atelectasis due to morbid obesity lethargy.
Thromboembolic disease a possibility-patient high risk due to bed immobility.
Lower extremity Dopplers negative
Eventual VQ scan-it has been ordered.
D-dimer will be helpful if negative
-
May need an IV fluid bolus with close observation-high risk intubation as the patient is hypoxemic as well.
Continue Levophed to target mean arterial blood pressure 65 mmHg.
Lactic acid is normal
Creatinine slightly elevated, will follow.
-
proBNP is elevated, echocardiogram noted with normal LVEF.
Unable to diurese to hypotension.
RV function is normal.
Troponins negative.
-
Oxygen supplementation to maintain pulse ox above 90%-currently on 2 L.
Incentive spirometry-when more awake
Again, avoid sedatives
ABG without hypercapnia-has respiratory alkalosis possibly due to sepsis
Continue CPAP which she uses in the outpatient setting for obstructive sleep apnea
(To my exam patient is somnolent but coughing on demand, following commands to verbal stimuli)
-
Toxic metabolic encephalopathy: Could be from sepsis and from oversedation from multiple psychoactive drugs.
Would hold sedative for now
Head of the bed elevation
TSH within normal
N.p.o.
Aspiration precautions
CT head pending
-
DVT prophy-heparin subcu
-
Critical care statement: A total of 33 minutes of critical care time was provided for this patient today. This includes management of unstable vital signs, evaluation of the patient at bedside, reviewing the patient's pertinent medical records
including arterial blood gases, radiographs, microbiology, laboratory evaluations and discussion with primary team, critical care nursing, and respiratory therapy.
[2024-01-24 15:32] LABS: NT-proBNP 5500 pg/ml; Troponin I 0.022 ng/ml
[2024-01-24] MEDS: NSS 1000 IV (15:33)
[2024-01-24] MEDS: STERILE WATER FOR INJECTION 10 ML IV ×2 (16:06→23:51)
[2024-01-24] MEDS: AZACTAM 1000 MG IV ×2 (16:06→23:51)
[2024-01-24] MEDS: LEVOPHED 250 IV (16:34)
[2024-01-24 18:29] LABS: INR 1.38; PT 17.1 Sec (11.4-14.6)
--- NOTE | 2024-01-24 18:30 | PTCARENOTE ---
Rec'd pt at 1750 via stretcher from the ED. Rec'd pt very sleepy but once settled in bed and stimulated did awaken and currently is wide awake. Oriented to self but very forgetful as to time and place. Needs frequent reminders. Will make some
appropriate comments but other times goes on a confusing tangent and needs reorientation. Speech is clear. Overall denies pain or shortness of breath. Skin is pale and warm. Wounds as documented. Has R post leg venous wounds that drain small amts of
serous drainage. R post calf is reddened. L calf is very reddned with open area that is draining serous drainage on the ant calf. Both calves are warm. + 2-3 LE edema (hx lymphedema) Respirs are unlabored on 2l nc with sats of 97%. BS are decreased
at the bases. Ant sl coarse. Intermittent moist non-prod cough. Monitor SR. Rec'd pt on Levophed at 2 mcg. Currently decreased to 1 mcg as BP syst 150. + pulses. Edema as noted. Denies chest pain. ABd is obese with + BS. Denies nausea. Incont of
urine. New purewick placed. Capped int inact R hand. IV Levophed infusing via L AC IV Site. Complete CHG bath given. Repositioned. Mouth care given. Call rivera in reach. Bed alarm on. Plan of care reviewed multiple times with pt. Labs sent
[2024-01-24 18:40] LABS: APTT 38.8 Sec (23.4-35.0)
[2024-01-24 18:51] LABS: D-Dimer 0.49 ug/mlFEU (0.00-0.50)
[2024-01-24] MEDS: FLEXERIL 5 MG PO (19:58)
[2024-01-24] MEDS: HIPREX 1 GRAM PO (20:00)
[2024-01-24] MEDS: DEPAKOTE (12 HR RELEASE) 500 MG PO (20:00)
[2024-01-24] MEDS: DEPAKOTE (12 HR RELEASE) 125 MG PO (20:00)
--- NOTE | 2024-01-24 20:00 | PTCARENOTE ---
rec`d pt at 1900, awake and conversing. oriented to self, but time and place pt can be confused. RN reoriented pt. speech is clear. levo at 1mcg. SBP maintained over 90 per MD orders. SR on monitor. HR in the 80s. +2 to +3 lower extrem edema. left
lower extrem celulitis w/ serous drainage. rt calf reddened. 2L NC maintaining POX 97%. pt had 100% of dinner. purwick. left breast has MASD. left AC and Left hand flushed and patent. call rivera in reach, safe environment maintained.
[2024-01-24] MEDS: DESENEX/MITRAZOL/ZEASORB 1 APPLIC TOPICAL (20:11)
[2024-01-24 21:30] LABS: Phosphorus 2.8 mg/dl (2.5-4.5)
[2024-01-24] MEDS: VITAMIN C 500 MG PO (21:37)
[2024-01-24] MEDS: LIPITOR 40 MG PO (21:37)
[2024-01-24] MEDS: MELATONIN PO (21:38)
[2024-01-24] MEDS: XALATAN OPHTHALMIC SOLUTION 1 DROP BOTH EYES (21:39)
[2024-01-24] MEDS: MELATONIN 10 MG PO (22:11)
[2024-01-25] VITALS (26 sets, daily range): BP systolic 95–154; BP diastolic 56–130; PULSE 80; BMI 51.8
--- NOTE | 2024-01-25 | PTCARENOTE ---
pt reassessed. no changes in pt assessment. CPAP placed by RT. call rivera in reach. safe environment maintained. pt makes needs known.
[2024-01-25 04:04] LABS: Blood Urea Nitrogen 49 mg/dl (7-17); Calcium 8.9 mg/dl (8.4-10.2); Carbon Dioxide 29 mmol/L (22-30); Chloride 104 mmol/L (98-107); Estimated Creatinine Clearance 61 ml/min; Glucose 103 mg/dl (70-99); Potassium 3.1 mmol/L (3.5-5.1); Sodium 140 mmol/L (135-145); eGFR 49.92
[2024-01-25] MEDS: KCL 40 MEQ PO (05:28)
--- NOTE | 2024-01-25 08:00 | PTCARENOTE ---
recd on bipap, VS noted stable, no urine from purewick at present, attends dry. nods appropriately, resting unless disturbed. LLE very warm to touch, line of redness just beneath knee, scant clear straw colored drainage from posterior blistered
area.
[2024-01-25 08:21] LABS: Glycohemoglobin (HgbA1c) 5.5 % (4.0-5.6)
[2024-01-25] MEDS: LIDOCAINE 4% PATCH 1 PATCH TOPICAL (08:27)
[2024-01-25] MEDS: HEPARIN 5000 UNITS SC ×3 (08:27→23:35)
[2024-01-25] MEDS: STERILE WATER FOR INJECTION 10 ML IV ×3 (08:28→23:34)
[2024-01-25] MEDS: AZACTAM 1000 MG IV ×3 (08:28→23:33)
[2024-01-25] MEDS: FLEXERIL 5 MG PO ×2 (08:28→20:54)
[2024-01-25] MEDS: SYNTHROID 50 MCG PO (08:29)
[2024-01-25] MEDS: TOPROL XL 25 MG PO (08:29)
[2024-01-25] MEDS: DEPAKOTE (12 HR RELEASE) 125 MG PO ×2 (08:29→20:54)
[2024-01-25] MEDS: CLARITIN 10 MG PO (08:30)
[2024-01-25] MEDS: PROTONIX 20 MG PO (08:30)
[2024-01-25] MEDS: SENOKOT 8.6 MG PO ×2 (08:30→20:55)
[2024-01-25] MEDS: DETROL LA 4 MG PO (08:30)
[2024-01-25] MEDS: ZYLOPRIM 100 MG PO (08:30)
[2024-01-25] MEDS: PLAVIX 75 MG PO (08:31)
[2024-01-25] MEDS: COLCHICINE 0.6 MG PO (08:31)
[2024-01-25] MEDS: B COMPLEX w/VITAMIN C 1 CAPLET PO (08:31)
[2024-01-25] MEDS: EFFEXOR XR 75 MG PO (08:32)
[2024-01-25] MEDS: DEPAKOTE (12 HR RELEASE) 500 MG PO ×2 (08:32→20:54)
[2024-01-25] MEDS: REFRESH EYE DROPS (PF) 1 DROPS BOTH EYES ×3 (08:32→21:53)
[2024-01-25] MEDS: ZYLOPRIM 300 MG PO (08:32)
--- NOTE | 2024-01-25 08:32 | PHA.VAN.FU ---
Vancomycin Assessment / Plan
- Assessment
Renal Function: Stable
In the past 24 hrs, patient has been: Afebrile
Concomitant Antimicrobials: aztreonam
- Assessment - Therapeutic Drug Monitoring
Random Level: 14 - drawn ~14.5H after previous dose of 1250mg
- Dosing Plan
Dosing by Level: Re-dose today (Vanc 1250mg)
- Monitoring Plan
Random Level: 01/25 600
- Follow Up
Pharmacy will continue to follow.
Vancomycin Follow UP
- -
Patient Age: 68
Patient Sex: Female
Vancomycin Day #: 2
Indication: Skin And Soft Tissue
Requesting Provider: Dr. Acevedo
Pertinent Antimicrobial Allergies:
amoxicillin - unknown
cefuroxime - unknown
cephalexin - unknown
sulfa/trimethoprim - unknown
trovafloxacin - unknown
nitrofurantoin - unknown
Height / Weight:
Height 5 ft 3 in
Actual Weight 132.5 kg
Pertinent Past Medical History: BMI ~56, PVD
- Vital Signs / Lab Results
Temp Pulse Resp BP Pulse Ox
99.9 F 99 18 122/71 95
01/25/24 07:41 01/25/24 06:00 01/25/24 06:00 01/25/24 06:00 01/25/24 06:00
Lab Results - Hematology
01/23/24 01/24/24
20:46 05:23
WBC 17.9 H 15.1 H
Lab Results - Chemistry
01/23/24 01/24/24 01/25/24
20:46 05:23 03:23
BUN 49 H 43 H 49 H
Creatinine 1.3 H 1.2 H 1.2 H
Estimated Creat Clear 55 60 61
Albumin 3.3 L 3.1 L
01/23/24 01/24/24
20:46 14:57
Lactic Acid 1.3 1.4
Lab Results - Urine
01/24/24
14:58
Urine Nitrite (Reflex) Negative
Leukocyte Esterase Rfl 2+ A
Ur Squamous Epith Cells >30
Therapeutic Drug Monitoring
Random Vancomycin 14.0 ug/ml 01/25/24 03:23
[2024-01-25] MEDS: EFFEXOR XR 150 MG PO (08:37)
[2024-01-25] MEDS: HIPREX 1 GRAM PO ×2 (08:38→20:54)
[2024-01-25] MEDS: DESENEX/MITRAZOL/ZEASORB 1 APPLIC TOPICAL ×2 (08:38→21:52)
[2024-01-25] MEDS: VOLTAREN RIGHT EYE (08:40)
[2024-01-25] MEDS: EYE RIGHT EYE (08:40)
--- NOTE | 2024-01-25 09:43 | W.PN.CD ---
Addendum entered and electronically signed by Romaine Miller MD 01/25/24 16:56:
CDI inquiry: Acute on chronic Heart failure preserved ejection fraction
Original Note:
Today's Communication / Plan
-
IV diuresis today
Monitor weights, preferably standing
Keep K>4 Mag > 2
Impression / Plan
-
LLE cellulitis, sepsis:
-treatment of sepsis per primary team- on IV abx, received IV fluids. May need pressors.
Pulmonary edema on CXR:
-IV diuresis today
- Unclear dry weight 292 lbs bed scale this AM
hx PAF:
-remote history of afib 2012 in setting of sepsis, none seen on loop- plan has been to place her on OAC if any recurrent AFIB.
-tele with SR/ST with PAC's
Hx CVA 2020:
-on plavix, statin
ABRAHAN:
-monitor renal function
Echo: CONCLUSIONS
Normal biventricular size and systolic function without regional wall motion
abnormality.
Mild tricuspid regurgitation.
Estimated pulmonary artery pressure of 35-40 mmHg.
No prior study available for comparison.
IV echo contrast needed for RV/LV assessment.
Physical Exam
Vital Signs/Labs
Vital Signs
Temp Pulse Resp BP Pulse Ox
99.9 F 99 18 118/69 95
01/25/24 07:41 01/25/24 08:29 01/25/24 06:00 01/25/24 08:29 01/25/24 06:00
01/24/24 01/25/24 01/26/24
06:59 06:59 06:59
Actual Weight 294 lb 8.601 oz 292 lb 1.8 oz
PT 17.1 Sec (11.4-14.6) H 01/24/24 18:11
INR 1.38 01/24/24 18:11
APTT 38.8 Sec (23.4-35.0) H 01/24/24 18:11
Magnesium 1.9 mg/dl (1.6-2.3) 01/23/24 20:46
Triglycerides 92 mg/dl (10-149) 01/24/24 14:57
LDL Cholesterol, Calc 15 mg/dl 01/24/24 14:57
VLDL Cholesterol, Calc 18 mg/dl (0-30) 01/24/24 14:57
HDL Cholesterol 47 mg/dl 01/24/24 14:57
01/24/24
14:57
Skj-O-Fvemnpjyqjp Pept 5500
LAB Results
01/24/24
14:57
Troponin I 0.022
Physical Exam
Constitutional: No acute distress
EENT: Anicteric
Cardiovascular: Rhythm & rate is regular and Pedal edema present
Respiratory: Respiratory effort normal and Rhonchi Present
GI: Soft
Neuro/Psych: Alert and Oriented
Data Reviewed
-
Date of Service: January 25, 2024
EKG: Tracing Personally Visualized and interpreted (sr)
Echo: Report Reviewed by me
Labs: Labs Reviewed by me
[2024-01-25] MEDS: VANCOCIN 275 MG IV (09:48)
--- NOTE | 2024-01-25 10:58 | W.PN.HOSP.TC ---
Today's Communication/Plan
-
Continue antibiotics pending cultures per
Continue wound care.
IV diuresis
Replete potassium
Telemetry
Assessment / Plan
Assessment / Plan
Impression:
Toxic metabolic encephalopathy likely multifactorial due to fever/lower extremity cellulitis, hypoxemia.
Acute hypoxic respiratory insufficiency likely multifactorial due to below
Acute CHF exacerbation unknown EF
Acute pulmonary edema
Acute kidney injury suspect cardiorenal state.
Clinical sepsis/SIRS (fever, hypotension, altered mental status)
Bilateral acute on chronic lower extremity cellulitis complicated with venous stasis and peripheral edema.
Other conditions:
History of CVA with residual right-sided weakness
Essential hypertension.
Paroxysmal atrial fibrillation status post ablation.
Essential hypertension.
Dyslipidemia
Hypothyroidism
GERD.
Bipolar disorder
Insomnia
Gout
Morbid obesity due to excessive calories BMI 55.
Sleep apnea.
PAD by history.
UTI.
Multiple antibiotic allergies
Plan:
Clinical sepsis shortly after presentation on 01/23 including altered mental status, fever, persistent hypotension not responding to IV fluid bolus requiring pressors
Possible sources pulmonary, versus he urinary, versus bilateral lower extremity cellulitis
Hemodynamics improved and weaned off pressors.
Observe off IV fluids.
Broad-spectrum antibiotics: Vancomycin/aztreonam pending urine and blood cultures
Lower extremity cellulitis, bilateral, complicated with chronic venous stasis and peripheral edema.
Right lower extremity/calf superficial wound with no evidence of infection.
Doppler negative for DVT
Toxic metabolic encephalopathy likely multifactorial due to fever/lower extremity cellulitis, hypoxemia.
No focal findings on neurologic exam.
Mental status improved back to baseline
Please hold sedatives including Lyrica.
Okay to continue Depakote (pending level)
Acute CHF exacerbation unknown EF.
Exam with acute on chronic peripheral edema
Chest x-ray consistent with pulmonary edema.
Echocardiogram 01/23: Preserved biventricular size and systolic function. Mild TR. PA pressure 35 to 40 mmHg
Resume IV diuresis Lasix 40 mg IV twice daily. Hold Bumex.
Hypokalemia
Replete potassium
Follow daily weights
Acute hypoxic respiratory insufficiency likely multifactorial.
Respiratory status improved and weaned off oxygen
Continue IV diuresis pain
Lower extremity Doppler negative for DVT.
D-dimer normal.
Low clinical suspicion for thromboembolic disease.
Continue DVT prophylaxis
Obstructive sleep apnea plan
ABG on admission: pH 7.5 on room air
Noted with chronic compensatory metabolic alkalosis
Continue CPAP at night.
Paroxysmal atrial fibrillation by history, remote
Patient reports ablation and loop recorder placed at [facility].
ECG on admission sinus tach.
Continue metoprolol
Patient is not on anticoagulation prior to presentation.
Obtain medical records.
CV score 7 (CHF, hypertension, history of CVA, vascular disease, age, sex)
No recorded A-fib on monitoring.
Currently off anticoagulation
History of CVA with residual weakness and ambulatory dysfunction.
Continue Plavix per
Continue statin
Hemoglobin A1c 5.5
Acute kidney injury
Suspect cardiorenal state
Monitor renal function with diuresis per
Consider nephrology evaluation.
Avoid NSAIDs
Hypothyroidism on replacement
TSH 0.91
Gout
Continue colchicine/allopurinol
Bipolar disorder
Continue Depakote with caution for oversedation.
Check Depakote level.
Continue meloxicam
Chronic pain.
Hold Lyrica given oversedation
Anticipated Discharge: 24 - 48 hours
Subjective/Interval History
-
Date of Service: January 25, 2024
Objective Data
-
Labs:
Laboratory Results
01/25/24 01/25/24
03:23 09:25
WBC Pending
Hgb Pending
Hct Pending
Plt Count Pending
Sodium 140 Pending
Potassium 3.1 L Pending
Chloride 104 Pending
Carbon Dioxide 29 Pending
BUN 49 H Pending
Creatinine 1.2 H Pending
Glucose 103 H Pending
Calcium 8.9 Pending
Total Bilirubin Pending
AST Pending
ALT Pending
Alkaline Phosphatase Pending
Vital Signs:
Vital Signs
Temp Pulse Resp BP Pulse Ox
99.9 F 88 21 126/69 92
01/25/24 07:41 01/25/24 10:00 01/25/24 10:00 01/25/24 10:00 01/25/24 10:00
I&O
01/24/24 01/25/24 01/26/24
06:59 06:59 06:59
Intake Total 1472.6 / 1472.6 360 / 360
Output Total 300 / 300
Balance 1172.6 / 1172.6 360 / 360
Physical Exam
-
General: Well Developed and No Apparent Distress
HEENT: Normocephalic, Atraumatic and Moist Mucous Membranes
Respiratory: Clear to Auscultation
Cardiac: Regular Rhythm and S1/S2; Negative Murmur, Rub or Gallop
GI: Soft, Nontender, Nondistended and Normal Bowel Sounds; Negative Organomegaly
Rectal: Deferred by Provider
Musculoskeletal: No Clubbing, No Cyanosis and No Edema
Skin: Negative Rash
Neuro: Awake, Alert, Oriented and Nonfocal/Grossly Intact
--- NOTE | 2024-01-25 11:20 | CM ---
CM following re: discharge planning.
Discussed ion Rounds, reviewed pt' chart, met with pt.
Pt is a 68 year old female, admitted with primary dx of Cellulitis. per rounds meeting pt is downgraded from ICU level of care.
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 Pt stated no she ambulates with a walker, independent with a transfer. Pt reports she has
a daughter who has POA and lives in [place]. Pt stated she has not been seeing her daughter for the past 2 years and she just got a message from her daughter stating she wants to repair a relationship. Pt stated she hopes her 'daughter realized
she needs to be around me'. Emotional support offered and provided.
Pt is on 15 days medicaid bed hold.
Pt clinical faxed to [facility] for a review.
[facility] nursing report: [phone]
Discharge instructions fax: [phone]
D/C plan: Return back to [facility] for a LTC.
CM will follow to assist pt with discharge back to [facility] for a LTC.
--- NOTE | 2024-01-25 12:31 | W.PN.INTV ---
Today's Communication / Plan
Recommendations
Diuresis
Continue antibiotics
Follow cultures
Incentive spirometry
Home oxygen assessment prior to discharge
Avoid sedatives
Transfer to telemetry
Assessment
-
68-year-old woman from a care home, multiple medical problems, initially admitted with lethargy, change in mental status possible cellulitis. Progressed to hypoxemia, further lethargy, hypotension requiring vasopressors. Transferred to the
critical care unit on 01/24/2024.
Hypotension/shock-possibly septic
Lactic acid 1.4
Leukocytosis/fever
UA: 90-100 white blood cells/many bacteria/2+ leukocyte Estrace/negative nitrates.>30 epithelial cells
Left lower extremity cellulitis
Has been on clindamycin in the outpatient setting
Acute hypoxemic respiratory failure:
proBNP 5500/negative troponin-acute on chronic heart failure with preserved ejection fraction suspected
Echocardiogram 01/24/2024: Normal LVEF. Normal RV function. Mild pulmonary hypertension.
Lower extremity Dopplers: No evidence for DVT bilaterally 01/24/2024
Chest x-ray consistent with mild pulmonary edema.
Toxic metabolic encephalopathy-either from medications or sepsis.
ABG 01/24/2024: 7 point 50/31/60-respiratory alkalosis
Normal TSH
Component of oversedation a possibility as the patient has multiple psychoactive drugs.
Acute kidney injury-possibly prerenal
Conditions present prior admission:
History of urinary infection with Klebsiella 01/04/2022.
Chronic lymphedema
Obesity
History of CVA-residual right-sided weakness.
Hypertension
Atrial fibrillation status post ablation 10 years ago
Obstructive sleep apnea-on CPAP therapy 12 cm of water
Hyperlipidemia
GERD
Hypothyroidism
Bipolar disorder
Chronic insomnia
History of gout
History of migraines
History of nephrolithiasis
Peripheral vascular disease
DNR status
Assessment and plan:
Overall clinically improved, more alert and cooperative.
Vasopressors have been discontinued.
Sepsis:
Continue aztreonam/vancomycin.
Urinalysis is abnormal suggestive of UTI. Patient was straight cath by emergency room RN.
Lower extremity cellulitis
Follow blood cultures
Urine culture
Chest x-ray with suggestion of pulmonary vascular congestion. No definitive pneumonia.
-
Mild hypoxemia 2 L: Suspect likely due to pulmonary edema as well as atelectasis due to morbid obesity lethargy.
Mostly resolved.
She is clinically improved, not tachycardic.
D-dimer negative
Lower extremity Dopplers negative
Discontinue VQ scan
-
Heart failure with preserved ejection fraction,
proBNP is elevated, echocardiogram noted with normal LVEF.
Cardiology following the patient.
To start diuresis today 01/25/2024
RV function is normal.
Troponins negative.
Atrial fibrillation: Remote. Off anticoagulation, continue capital project engineer.
-
Oxygen supplementation to maintain pulse ox above 90%-currently on 2 L.-Improved. Home oxygen assessment prior to discharge.
Encourage incentive
Again, avoid sedatives
ABG without hypercapnia-has respiratory alkalosis possibly due to sepsis.
History of obstructive sleep
Continue CPAP which she uses in the outpatient setting for obstructive sleep apnea-patient has at home.
-
Toxic metabolic encephalopathy: Could be from sepsis and from oversedation from multiple psychoactive drugs.
Resolved 01/25/2024.
Discontinue CT head
TSH within normal
-
Diet advanced. Tolerating
Aspiration precautions
CT head pending
-
DVT prophy-heparin subcu
-
Transferred to telemetry. Critical care team will sign off.
Pulmonary will continue to follow briefly for hypoxemia.
Subjective Dataa
Subjective Data
Date of Service:
Date of Service: January 25, 2024
Chief Complaint: Afterschool Follow Up (Shock/hypoxemic respiratory failure)
Subjective:
This morning feels better.
Alert and cooperative. Denies any chest pain.
Denies shortness of breath at rest
Tolerated CPAP at night.
Review of Systems
General: Fever (n)
Cardiopulmonary: Dyspnea (none at rest)
GI: Abdominal Pain (n) and Nausea (n)
Neuro: Headache
Objective Data
Data Reviewed
Vital Signs / I&O / Oxygen:
Vital Signs
Temp Pulse Resp BP Pulse Ox
99.9 F 88 21 126/69 92
01/25/24 07:41 01/25/24 10:00 01/25/24 10:00 01/25/24 10:00 01/25/24 10:00
Intake and Output
01/24/24 01/25/24 01/26/24
06:59 06:59 06:59
Intake Total 1472.6 / 1472.6 360 / 360
Output Total 300 / 300
Balance 1172.6 / 1172.6 360 / 360
SaO2 92
Nasal Cannula flow liters per 2
minute
Physical Exam
General: Respiratory Distress (n) and Comfortable
HEENT: Normocephalic
Cardiovascular: Regular Rhythm
Respiratory: Clear and Non-Labored Respirations
GI: Soft and Distended (obese)
Neurology: Awake and No Motor Deficits
Skin: Warm
Labs/Micro/Reports
Laboratory Results
01/24/24
18:11
PT 17.1 H
INR 1.38
APTT 38.8 H
--- NOTE | 2024-01-25 12:58 | PTCARENOTE ---
oob with min assist and RW to recliner bedside. gait slow, steady. awaiting tele bed. using phone. has been alert and oriented so far this am; now conversing about needing to contact her employer and details more tangential. phone, paper
bedside. calm and cooperative.
--- NOTE | 2024-01-25 13:00 | PN.CDI ---
CDI
- -
CDI:
Physician Documentation Request
Admit Date: 01/23/24 23:01
Dear Doctor Rosi,
Please review the following and provide your response in the progress notes.
Clinical Indicators:
- 01/23 Update note 'Been increasingly lethargic and hypotensive...Initiate Levophed'
- 01/24 PN 'Sepsis...Possible sources pulmonary, versus he urinary, versus bilateral lower extremity cellulitis'
- Systolic BP 70-90s
- 01/23 Levophed started
Please clarify which of the following most accurately describes the status of the patient's infection:
Sepsis
- Systemic manifestations of infection, with 2 or more SIRS criteria which include:
- Fever >100.4 degrees F or hypothermia < 96.8 degrees F
- Leukocytosis - WBC > 12,000 or leukopenia - WBC < 4,000 or > 10% bands
- Tachycardia > 90 beats per minute
- Tachypnea - RR > 20 breaths per minute or PaCO2 , 32mmHg
Source: Merck Manual 2013
- Indicate the known or suspected organism
- Indicate the known or suspected underlying infection, such as UTI, pneumonia or cellulitis
- Indicate if a suspected bacterial infection of unknown source
- Indicate if associated with an implanted device such as a F/C, PICC line, orthopedic hardware, etc.
Severe Sepsis
- Sepsis with associated acute organ dysfunction, such as renal or respiratory failure
- Documentation should indicate the association between the sepsis and the organ dysfunction
Septic Shock
- Severe sepsis associated with circulatory failure, evidenced by hypotension and hypoperfusion
Other
Use of terms such as suspected, likely, concern for, or probable (associated with a specific diagnosis that is being evaluated, monitored, or treated as if it exists) are acceptable and can be coded in the inpatient setting, when documented at the
time of discharge.
Thank you,
Gonzalez Burnette RN
CDI Specialist
Please use your independent medical judgment in providing your response.
--- NOTE | 2024-01-25 13:18 | PN.CDI ---
Addendum entered and electronically signed by Anibal Aranda MD 01/26/24 15:28:
Original Note:
CDI
- -
CDI:
Physician Documentation Request
Admit Date: 01/23/24 23:01
Dear Cardiology,
Please review the following and provide your response in the progress notes.
Clinical Indicators:
- 01/23 Cardiology note 'pBNP and CXR are suggestive of heart failure'
- 'Her edema has been felt to be lymphedema but clearly a component of heart failure seems likely now'
- 01/23 Echo EF 550-60%, Diastolic function indeterminate
- 01/24 Cardiology 'IV diuresis today...Pulmonary edema on CXR'
- proBNP 5500
- IV Lasix ordered
Please provide further specificity regarding the most likely type and acuity of CHF you are evaluating, treating or monitoring.
Type Acuity
Systolic Acute
Diastolic Chronic
Combined Systolic/Diastolic Acute on Chronic
Other
Use of terms such as suspected, likely, concern for, or probable (associated with a specific diagnosis that is being evaluated, monitored, or treated as if it exists) are acceptable and can be coded in the inpatient setting, when documented at the
time of discharge.
Thank you,
Gonzalez Burnette RN
CDI Specialist
Please use your independent medical judgment in providing your response.
[2024-01-25 13:28] LABS: Hematocrit 31.8 % (37.0-47.0); Hemoglobin 10.3 g/dL (12.0-16.0); Mean Corp Hgb Conc. 32.4 g/dL (33.0-37.0); Mean Corpuscular Hgb 29.9 pg (27.0-31.0); Mean Corpuscular Volume 92.4 fL (81.0-99.0); Mean Platelet Volume 12.3 fL (7.4-10.4); Platelet Count 138 10^3/uL (130-400); Red Blood Cell Count 3.44 10^6/uL (4.20-5.40); Red Cell Dist. Width 15.9 % (11.5-14.5); White Blood Cell Count 18.3 10^3/uL (4.8-10.8)
[2024-01-25 13:35] LABS: ALT (SGPT) 28 U/L (0-35); AST (SGOT) 34 U/L (14-36); Albumin 2.6 g/dl (3.5-5.0); Alkaline Phosphatase 71 U/L (38-126); Blood Urea Nitrogen 40 mg/dl (7-17); Calcium 8.9 mg/dl (8.4-10.2); Carbon Dioxide 26 mmol/L (22-30); Chloride 104 mmol/L (98-107); Estimated Creatinine Clearance 61 ml/min; Glucose 141 mg/dl (70-99); Potassium 3.4 mmol/L (3.5-5.1); Sodium 139 mmol/L (135-145); Total Bilirubin 0.5 mg/dl (0.2-1.3); Total Protein 4.5 g/dl (6.3-8.2); eGFR 49.92
[2024-01-25 13:45] LABS: % Basophils 0.4 % (0-2); % Eosinophils 0.3 % (0-6); % Immature Granulocytes 1.4 % (0-0.5); % Lymphocytes 9.3 % (20.5-51.1); % Monocytes 4.3 % (1.7-9.3); % Neutrophils 84.3 % (42.2-75.2); Absolute Basophils 0.1 10^3/uL (0-0.2); Absolute Eosinophils 0.1 10^3/uL (0-0.7); Absolute Immature Granulocytes 0.3 10^3/uL (0-0.05); Absolute Lymphocytes 1.7 10^3/uL (1.2-3.4); Absolute Monocytes 0.8 10^3/uL (0.1-0.6); Absolute Neutrophils 15.4 10^3/uL (1.4-6.5); Nucleated Red Blood Cells % 0 %
[2024-01-25] MEDS: TYLENOL 650 MG PO (15:34)
[2024-01-25] MEDS: LASIX 40 MG IV (15:35)
--- NOTE | 2024-01-25 15:36 | PTCARENOTE ---
report given to 4W RN, awaiting bed to be ready. remains OOB, meds given, in good spirits.
--- NOTE | 2024-01-25 16:17 | TRANSFER ---
to room 427 via wc with belongings. 1600 meds given prior to tsf, see MAR.
--- NOTE | 2024-01-25 16:36 | PTCARENOTE ---
received pt from ICU awake and alert. Pt has delusions about calling out of work but expressed understanding that is is in the hospital. LCTA B/L on RA. abd round obese. cont b&B. right posterior calf has intact silicone boarder foam in place and +2
edema. LLE +3 red and warm. weak PP b/l. CB in reach
[2024-01-25] MEDS: DUONEB 3 ML INH (20:56)
[2024-01-25] MEDS: MELATONIN 10 MG PO (21:53)
[2024-01-25] MEDS: LIPITOR 40 MG PO (21:53)
[2024-01-25] MEDS: VITAMIN C 500 MG PO (21:53)
[2024-01-25] MEDS: XALATAN OPHTHALMIC SOLUTION 1 DROP BOTH EYES (21:55)
[2024-01-25] MEDS: TESSALON PERLES 100 MG PO (21:56)
[2024-01-26 02:36] VITALS: BP 102/61
[2024-01-26 06:00] VITALS: BMI 51.9
[2024-01-26 07:11] LABS: Glucose - Point of Care 95 mg/dl (70-99)
[2024-01-26] MEDS: SYNTHROID 50 MCG PO (08:00)
[2024-01-26 08:43] LABS: Hematocrit 32.2 % (37.0-47.0); Hemoglobin 10.5 g/dL (12.0-16.0); Mean Corp Hgb Conc. 32.6 g/dL (33.0-37.0); Mean Platelet Volume 12.3 fL (7.4-10.4); Platelet Count 133 10^3/uL (130-400); Red Blood Cell Count 3.39 10^6/uL (4.20-5.40); Red Cell Dist. Width 15.6 % (11.5-14.5); White Blood Cell Count 16.9 10^3/uL (4.8-10.8)
[2024-01-26] MEDS: DETROL LA 4 MG PO (08:56)
[2024-01-26] MEDS: FLEXERIL 5 MG PO ×2 (08:57→21:29)
[2024-01-26] MEDS: TOPROL XL 25 MG PO (08:57)
[2024-01-26] MEDS: CLARITIN 10 MG PO (08:58)
[2024-01-26] MEDS: REFRESH EYE DROPS (PF) 1 DROPS BOTH EYES ×3 (08:58→21:32)
[2024-01-26] MEDS: EFFEXOR XR 75 MG PO (08:58)
[2024-01-26] MEDS: HIPREX 1 GRAM PO ×2 (08:58→21:30)
[2024-01-26] MEDS: DEPAKOTE (12 HR RELEASE) 125 MG PO ×2 (08:58→21:29)
[2024-01-26] MEDS: ZYLOPRIM 100 MG PO (08:58)
[2024-01-26] MEDS: ZYLOPRIM 300 MG PO (08:58)
[2024-01-26] MEDS: SENOKOT 8.6 MG PO ×2 (08:58→21:30)
[2024-01-26] MEDS: EFFEXOR XR 150 MG PO (08:58)
[2024-01-26] MEDS: PLAVIX 75 MG PO (08:58)
[2024-01-26] MEDS: B COMPLEX w/VITAMIN C 1 CAPLET PO (08:58)
[2024-01-26] MEDS: DEPAKOTE (12 HR RELEASE) 500 MG PO ×2 (08:58→21:29)
[2024-01-26] MEDS: HEPARIN 5000 UNITS SC ×2 (08:59→17:31)
[2024-01-26] MEDS: COLCHICINE 0.6 MG PO (08:59)
[2024-01-26] MEDS: PROTONIX 20 MG PO (08:59)
[2024-01-26] MEDS: LASIX 40 MG IV (08:59)
[2024-01-26] MEDS: LIDOCAINE 4% PATCH 1 PATCH TOPICAL (09:00)
[2024-01-26] MEDS: AZACTAM 1000 MG IV ×2 (09:01→17:32)
[2024-01-26] MEDS: STERILE WATER FOR INJECTION 10 ML IV ×2 (09:01→17:32)
[2024-01-26] MEDS: VOLTAREN RIGHT EYE (09:02)
[2024-01-26] MEDS: EYE RIGHT EYE (09:02)
[2024-01-26] MEDS: DESENEX/MITRAZOL/ZEASORB 1 APPLIC TOPICAL ×2 (09:03→21:40)
[2024-01-26 09:09] LABS: Absolute Neutrophils -Man Diff 14.5 10^3/uL (1.4-6.5); Anisocytosis 1+; Band Neutrophils 11 % (0-3); Hypochromasia 1+; Lymphocytes 9 % (20-51); Metamyelocytes 3 % (-); Monocytes 2 % (2-9); Normal RBC Morphology No; Platelets Checked Yes; Polychromasia 1+; Segmented Neutrophils 75 % (42-75)
[2024-01-26 09:10] LABS: Acanthocytes 1+; Ovalocytes 1+; Total Cells Counted 100
[2024-01-26 09:17] LABS: Vancomycin Random 10.5 ug/ml
[2024-01-26 09:59] LABS: ALT (SGPT) 32 U/L (0-35); AST (SGOT) 28 U/L (14-36); Albumin 2.6 g/dl (3.5-5.0); Alkaline Phosphatase 86 U/L (38-126); Blood Urea Nitrogen 35 mg/dl (7-17); Calcium 8.8 mg/dl (8.4-10.2); Carbon Dioxide 28 mmol/L (22-30); Chloride 102 mmol/L (98-107); Estimated Creatinine Clearance 74 ml/min; Glucose 83 mg/dl (70-99); Potassium 3.8 mmol/L (3.5-5.1); Sodium 140 mmol/L (135-145); Total Bilirubin 0.4 mg/dl (0.2-1.3); Total Protein 4.6 g/dl (6.3-8.2); eGFR > 60.00
--- NOTE | 2024-01-26 10:08 | PHA.VAN.FU ---
Vancomycin Assessment / Plan
- Assessment
Renal Function: SCR Decreasing
WBC's are: Trending Down
Concomitant Antimicrobials: aztreonam
- Assessment - Therapeutic Drug Monitoring
Random Level: 10.5 - drawn ~21.5H after previous dose of 1250mg
- Dosing Plan
Dosing by Level: Re-dose today (Vanc 1500mg)
Dosing Comments: slight increase today
Renal function improving but BUN remains elevated and CrCl may be overestimated by weight
Will give slight increase in dose today given decrease in level but continue dose by level / once daily dosing and follow levels for now
- Monitoring Plan
Random Level: 01/26 0600
- Follow Up
Pharmacy will continue to follow.
Vancomycin Follow UP
- -
Patient Age: 68
Patient Sex: Female
Vancomycin Day #: 3
Indication: Skin And Soft Tissue
Requesting Provider: Dr. Acevedo
Pertinent Antimicrobial Allergies:
amoxicillin - unknown
cefuroxime - unknown
cephalexin - unknown
sulfa/trimethoprim - unknown
trovafloxacin - unknown
nitrofurantoin - unknown
Height / Weight:
Height 5 ft 3 in
Actual Weight 132.903 kg
Pertinent Past Medical History: BMI ~56, PVD
- Vital Signs / Lab Results
Temp Pulse Resp BP Pulse Ox
97.8 F 83 16 108/56 98
01/26/24 02:36 01/26/24 08:57 01/26/24 02:36 01/26/24 08:57 01/26/24 02:36
Lab Results - Hematology
01/23/24 01/24/24 01/25/24
20:46 05:23 13:07
WBC 17.9 H 15.1 H 18.3 H
Band Neutrophils
01/26/24
07:30
WBC 16.9 H
Band Neutrophils 11 H
Lab Results - Chemistry
01/23/24 01/24/24 01/25/24
20:46 05:23 03:23
BUN 49 H 43 H 49 H
Creatinine 1.3 H 1.2 H 1.2 H
Estimated Creat Clear 55 60 61
Albumin 3.3 L 3.1 L
01/25/24 01/26/24
13:07 07:30
BUN 40 H 35 H
Creatinine 1.2 H 1.0
Estimated Creat Clear 61 74
Albumin 2.6 L 2.6 L
01/23/24 01/24/24
20:46 14:57
Lactic Acid 1.3 1.4
Lab Results - Urine
01/24/24
14:58
Urine Nitrite (Reflex) Negative
Leukocyte Esterase Rfl 2+ A
Ur Squamous Epith Cells >30
Microbiology Results
01/24/24 14:58 Urine Culture - Final
Urine Escherichia coli
01/24/24 14:57 Blood Culture - Preliminary
Blood/Venous No Growth in 24 hours- Final report to follow
01/24/24 09:42 MRSA Screen - Final
Nose No Methicillin Resistant Staphylococcus aureus isolated.
Therapeutic Drug Monitoring
Random Vancomycin 10.5 ug/ml 01/26/24 07:30
--- NOTE | 2024-01-26 10:25 | W.PN.PUL.V3 ---
Today's Communication / Plan
-
.
Antibiotics.
Supplemental option weaned to room air.
CPAP at night.
Pulmonary-we will sign off-please call with questions.
Outpatient pulmonary/sleep disorders follow-up
Assessment
-
68-year-old woman from a senior living, multiple medical problems, initially admitted with lethargy, change in mental status possible cellulitis. Progressed to hypoxemia, further lethargy, hypotension requiring vasopressors. Transferred to the
critical care unit on 01/24/2024.
Hypotension/shock-possibly septic
Lactic acid 1.4
Leukocytosis/fever
UA: 90-100 white blood cells/many bacteria/2+ leukocyte Estrace/negative nitrates.>30 epithelial cells
Left lower extremity cellulitis
Has been on clindamycin in the outpatient setting
Acute hypoxemic respiratory failure:
proBNP 5500/negative troponin-acute on chronic heart failure with preserved ejection fraction suspected
Echocardiogram 01/24/2024: Normal LVEF. Normal RV function. Mild pulmonary hypertension.
Lower extremity Dopplers: No evidence for DVT bilaterally 01/24/2024
Chest x-ray consistent with mild pulmonary edema.
Toxic metabolic encephalopathy-either from medications or sepsis.
ABG 01/24/2024: 7 point 50/31/60-respiratory alkalosis
Normal TSH
Component of oversedation a possibility as the patient has multiple psychoactive drugs.
Acute kidney injury-possibly prerenal
Conditions present prior admission:
History of urinary infection with Klebsiella 01/04/2022.
Chronic lymphedema
Obesity
History of CVA-residual right-sided weakness.
Hypertension
Atrial fibrillation status post ablation 10 years ago
Obstructive sleep apnea-on CPAP therapy 12 cm of water
Hyperlipidemia
GERD
Hypothyroidism
Bipolar disorder
Chronic insomnia
History of gout
History of migraines
History of nephrolithiasis
Peripheral vascular disease
DNR status
Plan
Respiratory status as well as hemodynamics have improved.
Supplemental oxygen if needed-currently on room air.
CPAP at night-tolerating
Nebulizers if needed-currently not bronchospastic.
Incentive spirometry.
Aspiration precautions..
D-dimer negative-VQ scan discontinued
Cultures reviewed.
Antibiotics continue- aztreonam/vancomycin.
Urinalysis is abnormal suggestive of UTI
Lower extremity cellulitis
Follow blood cultures
Urine culture
Chest x-ray with suggestion of pulmonary vascular congestion. No definitive pneumonia.,
.
Heart failure with preserved EF
Cardiology following-correspondence reviewed.
Diuresis as tolerated
Monitor weight, intake, output, lower extremity edema and renal function.
History of atrial fibrillation
History of obstructive sleep
Continue CPAP which she uses in the outpatient setting for obstructive sleep apnea-patient has at home.
DVT prophy-heparin subcu.
Nutrition
Early mobilization.
Pulmonary will sign off.
Outpatient pulmonary/sleep disorders follow-up
Subjective Data
-
Date of Service:
Date of Service: January 26, 2024
Chief Complaint: Pulmonary Follow Up and Dyspnea Follow Up
Subjective:
Tolerate CPAP, no complaints of shortness of breath, chest pain, productive cough
Review of Systems
General: Other ( per HPI)
Objective Data
Data Reviewed
Vital Signs / I&O:
Vital Signs
Temp Pulse Resp BP Pulse Ox
97.8 F 83 16 108/56 98
01/26/24 02:36 01/26/24 08:57 01/26/24 02:36 01/26/24 08:57 01/26/24 02:36
Intake and Output
01/25/24 01/26/24 01/27/24
06:59 06:59 06:59
Intake Total 1472.6 / 1472.6 840 / 840
Output Total 300 / 300 600 / 600
Balance 1172.6 / 1172.6 240 / 240
SaO2: 98
Nasal Cannula flow liters per minute: 2
Physical Exam
General: Respiratory Distress (n) and Comfortable
HEENT: Normocephalic, Anicteric and Moist Mucous Membranes
Cardiovascular: Regular Rhythm
Respiratory: Wheeze (n), Crackles ( basilar), Rhonchi (n), Non-Labored Respirations, Accessory Resp Muscle Use (n) and Stridor (n)
GI: Soft, Non Distended and Non Tender
Neurology: Awake, Alert and No Motor Deficits
Skin: Warm, Good Color, Cyanosis (n), Jaundice (n) and Rash (n)
Labs/Micro/Reports
Lab Data
01/26/24 07:30
01/26/24 07:30
Microbiology
01/24/24 14:58 Urine Urine Culture - Final
Escherichia coli
01/24/24 14:57 Blood/Venous Blood Culture - Preliminary
No Growth in 24 hours- Final report to follow
01/24/24 09:42 Nose MRSA Screen - Final
No Methicillin Resistant Staphylococcus aureus isolated.
--- NOTE | 2024-01-26 11:20 | W.PN.CD ---
Today's Communication / Plan
-
Increase lasix to 80 IV bid
Impression / Plan
-
LLE cellulitis, sepsis:
-treatment of sepsis per primary team- on IV abx, received IV fluids. May need pressors.
Pulmonary edema on CXR, acute HFpEF:
- Increase lasix to 80 IV bid, probably needs a day or two of diuresis
- weight 293 lbs today unclear dry weight
hx PAF:
-remote history of afib 2012 in setting of sepsis, none seen on loop- plan has been to place her on OAC if any recurrent AFIB.
-tele with SR/ST with PAC's
Hx CVA 2020:
-on plavix, statin
ABRAHAN:
-monitor renal function
Echo: CONCLUSIONS
Normal biventricular size and systolic function without regional wall motion
abnormality.
Mild tricuspid regurgitation.
Estimated pulmonary artery pressure of 35-40 mmHg.
No prior study available for comparison.
IV echo contrast needed for RV/LV assessment.
Physical Exam
Vital Signs/Labs
Vital Signs
Temp Pulse Resp BP Pulse Ox
97.8 F 83 16 108/56 98
01/26/24 02:36 01/26/24 08:57 01/26/24 02:36 01/26/24 08:57 01/26/24 10:25
01/25/24 01/26/24 01/27/24
06:59 06:59 06:59
Actual Weight 292 lb 1.8 oz 293 lb
01/26/24 07:30
01/26/24 07:30
PT 17.1 Sec (11.4-14.6) H 01/24/24 18:11
INR 1.38 01/24/24 18:11
APTT 38.8 Sec (23.4-35.0) H 01/24/24 18:11
Magnesium 1.9 mg/dl (1.6-2.3) 01/23/24 20:46
Triglycerides 92 mg/dl (10-149) 01/24/24 14:57
LDL Cholesterol, Calc 15 mg/dl 01/24/24 14:57
VLDL Cholesterol, Calc 18 mg/dl (0-30) 01/24/24 14:57
HDL Cholesterol 47 mg/dl 01/24/24 14:57
01/24/24
14:57
Eel-H-Wyjvoyfpuur Pept 5500
LAB Results
01/24/24
14:57
Troponin I 0.022
Physical Exam
Constitutional: No acute distress and Comfortable
EENT: Anicteric
Cardiovascular: Rhythm & rate is regular and Pedal edema present
Respiratory: Respiratory effort normal and Lungs clear to auscul.
GI: Soft
Neuro/Psych: AO x 3
Data Reviewed
-
Date of Service: January 26, 2024
EKG: Tracing Personally Visualized and interpreted (sr)
Echo: Report Reviewed by me
Labs: Labs Reviewed by me
[2024-01-26] MEDS: VANCOCIN 300 MG IV (13:24)
[2024-01-26] MEDS: VANCOCIN 300 ML IV (13:24)
[2024-01-26 13:45] LABS: Magnesium 1.8 mg/dl (1.6-2.3)
--- NOTE | 2024-01-26 14:44 | CM ---
CM reviewed chart, met with patient. Patient denies any needs at this time, reports she is feeling better today. CM will continue to follow for all discharge planning needs.
[facility] nursing report: [phone]
Discharge instructions fax: [phone]
D/C plan: Return back to [facility] for a LTC.
[2024-01-26 15:00] VITALS: BP 121/65
--- NOTE | 2024-01-26 15:28 | W.PN.HOSP.TC ---
Today's Communication/Plan
-
IV diuresis
BiPAP
IV antibiotics
Assessment / Plan
Assessment / Plan
Impression:
Toxic metabolic encephalopathy likely multifactorial due to fever/lower extremity cellulitis, hypoxemia.
Acute hypoxic respiratory insufficiency likely multifactorial due to below
Acute CHF exacerbation preserved EF
Acute pulmonary edema
Acute kidney injury suspect cardiorenal state.
Clinical sepsis/SIRS (fever, hypotension, altered mental status)
Bilateral acute on chronic lower extremity cellulitis complicated with venous stasis and peripheral edema.
Other conditions:
History of CVA with residual right-sided weakness
Essential hypertension.
Paroxysmal atrial fibrillation status post ablation.
Essential hypertension.
Dyslipidemia
Hypothyroidism
GERD.
Bipolar disorder
Insomnia
Gout
Morbid obesity due to excessive calories BMI 55.
Sleep apnea.
PAD by history.
UTI.
Multiple antibiotic allergies
Plan:
Clinical sepsis shortly after presentation on 01/23 including altered mental status, fever, persistent hypotension not responding to IV fluid bolus requiring pressors
Possible sources pulmonary, versus he urinary, versus bilateral lower extremity cellulitis
Sepsis shock with hypotension responding to IV fluids. Eventually had not required pressors.
Observe off IV fluids.
Blood cultures negative to date.
Urine culture with E. coli
Lower extremity cellulitis, bilateral, complicated with chronic venous stasis and peripheral edema.
Right lower extremity/calf superficial wound with no evidence of infection.
Doppler negative for DVT
Continue antibiotics vancomycin/aztreonam covering UTI as well as bilateral lower extremity cellulitis.
Toxic metabolic encephalopathy likely multifactorial due to fever/lower extremity cellulitis, hypoxemia.
No focal findings on neurologic exam.
Mental status improved back to baseline
Please hold sedatives including Lyrica.
Okay to continue Depakote (pending level)
Acute CHF exacerbation preserved EF.
Exam with acute on chronic peripheral edema
Chest x-ray consistent with pulmonary edema.
Echocardiogram 01/23: Preserved biventricular size and systolic function. Mild TR. PA pressure 35 to 40 mmHg
Resume IV diuresis Lasix increased to 80 mg twice daily. Hold Bumex
Hypokalemia
Replete potassium
Follow daily weights
Acute hypoxic respiratory insufficiency likely multifactorial.
Respiratory status improved and weaned off oxygen
Continue IV diuresis pain
Lower extremity Doppler negative for DVT.
D-dimer normal.
Low clinical suspicion for thromboembolic disease.
Continue DVT prophylaxis
Obstructive sleep apnea plan
ABG on admission: pH 7.5 on room air
Noted with chronic compensatory metabolic alkalosis
Continue CPAP at night.
Paroxysmal atrial fibrillation by history, remote
Patient reports ablation and loop recorder placed at [facility].
ECG on admission sinus tach.
Continue metoprolol
Patient is not on anticoagulation prior to presentation.
Obtain medical records.
CV score 7 (CHF, hypertension, history of CVA, vascular disease, age, sex)
No recorded A-fib on monitoring.
Currently off anticoagulation
History of CVA with residual weakness and ambulatory dysfunction.
Continue Plavix per
Continue statin
Hemoglobin A1c 5.5
Acute kidney injury
Suspect cardiorenal state
Monitor renal function with diuresis per
Consider nephrology evaluation.
Avoid NSAIDs
Hypothyroidism on replacement
TSH 0.91
Gout
Continue colchicine/allopurinol
Bipolar disorder
Continue Depakote with caution for oversedation.
Check Depakote level.
Continue meloxicam
Chronic pain.
Hold Lyrica given oversedation
Anticipated Discharge: 24 - 48 hours
Subjective/Interval History
-
Date of Service: January 26, 2024
Objective Data
-
Labs:
Laboratory Results
01/26/24
07:30
WBC 16.9 H
Hgb 10.5 L
Hct 32.2 L
Plt Count 133
Sodium 140
Potassium 3.8
Chloride 102
Carbon Dioxide 28
BUN 35 H
Creatinine 1.0
Glucose 83
Calcium 8.8
Total Bilirubin 0.4
AST 28
ALT 32
Alkaline Phosphatase 86
Vital Signs:
Vital Signs
Temp Pulse Resp BP Pulse Ox
97.8 F 83 16 108/56 98
01/26/24 02:36 01/26/24 08:57 01/26/24 02:36 01/26/24 08:57 01/26/24 10:25
I&O
01/25/24 01/26/24 01/27/24
06:59 06:59 06:59
Intake Total 1472.6 / 1472.6 840 / 840
Output Total 300 / 300 600 / 600
Balance 1172.6 / 1172.6 240 / 240
Physical Exam
-
General: Well Developed and No Apparent Distress
HEENT: Normocephalic, Atraumatic and Moist Mucous Membranes
Respiratory: Clear to Auscultation
Cardiac: Regular Rhythm and S1/S2; Negative Murmur, Rub or Gallop
GI: Soft, Nontender, Nondistended and Normal Bowel Sounds; Negative Organomegaly
Rectal: Deferred by Provider
Musculoskeletal: No Clubbing, No Cyanosis and No Edema
Skin: Negative Rash
Neuro: Awake, Alert, Oriented and Nonfocal/Grossly Intact
[2024-01-26] MEDS: LASIX 80 MG IV (17:31)
[2024-01-26] MEDS: TYLENOL 650 MG PO (17:34)
[2024-01-26] MEDS: TESSALON PERLES 100 MG PO (17:45)
[2024-01-26 19:30] VITALS: BP 98/52
[2024-01-26] MEDS: LIPITOR 40 MG PO (21:30)
[2024-01-26] MEDS: XALATAN OPHTHALMIC SOLUTION 1 DROP BOTH EYES (21:31)
[2024-01-26] MEDS: MELATONIN 10 MG PO (21:31)
[2024-01-26] MEDS: VITAMIN C 500 MG PO (21:31)
[2024-01-26 23:19] VITALS: BP 91/54
[2024-01-27] MEDS: STERILE WATER FOR INJECTION 10 ML IV ×3 (00:30→16:27)
[2024-01-27] MEDS: AZACTAM 1000 MG IV ×3 (00:30→16:27)
[2024-01-27] MEDS: FLUSH (NSS) 1 FLUSH IV ×2 (00:30→16:29)
[2024-01-27] MEDS: HEPARIN 5000 UNITS SC ×3 (00:31→16:28)
[2024-01-27] MEDS: TESSALON PERLES 100 MG PO (00:41)
[2024-01-27] MEDS: TYLENOL 650 MG PO (03:37)
[2024-01-27 03:48] VITALS: BP 129/73
--- NOTE | 2024-01-27 05:30 | PTCARENOTE ---
Pt. had 30 beat run v-tach, asymptomatic, happens when pt. frequently coughs, notified KHRIS Cui, labs ordered.
[2024-01-27] MEDS: SYNTHROID 50 MCG PO (05:46)
[2024-01-27 05:48] LABS: % Basophils 0.5 % (0-2); % Eosinophils 2.5 % (0-6); % Immature Granulocytes 2.1 % (0-0.5); % Lymphocytes 16.1 % (20.5-51.1); % Monocytes 7.9 % (1.7-9.3); % Neutrophils 70.9 % (42.2-75.2); Absolute Basophils 0.1 10^3/uL (0-0.2); Absolute Eosinophils 0.3 10^3/uL (0-0.7); Absolute Immature Granulocytes 0.3 10^3/uL (0-0.05); Absolute Neutrophils 8.8 10^3/uL (1.4-6.5); Hematocrit 30.2 % (37.0-47.0); Hemoglobin 9.9 g/dL (12.0-16.0); Mean Corp Hgb Conc. 32.8 g/dL (33.0-37.0); Mean Corpuscular Hgb 29.9 pg (27.0-31.0); Mean Corpuscular Volume 91.2 fL (81.0-99.0); Mean Platelet Volume 10.9 fL (7.4-10.4); Nucleated Red Blood Cells % 0 %; Platelet Count 153 10^3/uL (130-400); Red Blood Cell Count 3.31 10^6/uL (4.20-5.40); Red Cell Dist. Width 15.4 % (11.5-14.5); White Blood Cell Count 12.4 10^3/uL (4.8-10.8)
[2024-01-27 06:00] VITALS: BMI 51.9
[2024-01-27 06:08] LABS: Blood Urea Nitrogen 34 mg/dl (7-17); Calcium 8.5 mg/dl (8.4-10.2); Carbon Dioxide 30 mmol/L (22-30); Chloride 101 mmol/L (98-107); Estimated Creatinine Clearance 82 ml/min; Glucose 93 mg/dl (70-99); Potassium 3.5 mmol/L (3.5-5.1); Sodium 141 mmol/L (135-145); Vancomycin Random 13.2 ug/ml; eGFR > 60.00
[2024-01-27 07:00] VITALS: BP 113/68
[2024-01-27] MEDS: DEPAKOTE (12 HR RELEASE) 125 MG PO ×2 (08:05→20:04)
[2024-01-27] MEDS: HIPREX 1 GRAM PO ×2 (08:05→20:06)
[2024-01-27] MEDS: TOPROL XL 25 MG PO (08:06)
[2024-01-27] MEDS: ZYLOPRIM 300 MG PO (08:06)
[2024-01-27] MEDS: DEPAKOTE (12 HR RELEASE) 500 MG PO ×2 (08:06→20:04)
[2024-01-27] MEDS: SENOKOT 8.6 MG PO ×2 (08:07→20:06)
[2024-01-27] MEDS: COLCHICINE 0.6 MG PO (08:07)
[2024-01-27] MEDS: ZYLOPRIM 100 MG PO (08:07)
[2024-01-27] MEDS: REFRESH EYE DROPS (PF) 1 DROPS BOTH EYES ×3 (08:07→20:07)
[2024-01-27] MEDS: B COMPLEX w/VITAMIN C 1 CAPLET PO (08:07)
[2024-01-27] MEDS: PROTONIX 20 MG PO (08:07)
[2024-01-27] MEDS: EFFEXOR XR 75 MG PO (08:07)
[2024-01-27] MEDS: DETROL LA 4 MG PO (08:07)
[2024-01-27] MEDS: PLAVIX 75 MG PO (08:07)
[2024-01-27] MEDS: LIDOCAINE 4% PATCH 1 PATCH TOPICAL (08:08)
[2024-01-27] MEDS: EFFEXOR XR 150 MG PO (08:11)
[2024-01-27] MEDS: CLARITIN 10 MG PO (08:11)
[2024-01-27] MEDS: LASIX 80 MG IV ×2 (08:12→16:28)
[2024-01-27] MEDS: FLEXERIL 5 MG PO ×2 (08:15→20:05)
--- NOTE | 2024-01-27 08:20 | PHA.VAN.FU ---
Vancomycin Assessment / Plan
- Assessment
Renal Function: SCR Decreasing
WBC's are: Trending Down
In the past 24 hrs, patient has been: Afebrile
Concomitant Antimicrobials: Aztreonam
- Assessment - Therapeutic Drug Monitoring
Random Level: R = 13.2 ~ 16hrs post Vanc 1500mg
- Dosing Plan
Continue: Dose by level
Dosing by Level: Re-dose today (Vanc 1250mg today)
Dosing Comments: Renal fxn improving and BUN still elevated. CrCl overestimated by wt
- Monitoring Plan
Random Level: 01/27 with AM labs
- Follow Up
Pharmacy will continue to follow.
Vancomycin Follow UP
- -
Patient Age: 68
Patient Sex: Female
Vancomycin Day #: 4
Indication: Skin And Soft Tissue
Requesting Provider: Dr. Acevedo
Pertinent Antimicrobial Allergies:
amoxicillin - unknown
cefuroxime - unknown
cephalexin - unknown
sulfa/trimethoprim - unknown
trovafloxacin - unknown
nitrofurantoin - unknown
Height / Weight:
Height 5 ft 3 in
Actual Weight 132.988 kg
Pertinent Past Medical History: BMI ~56, PVD
- Vital Signs / Lab Results
Temp Pulse Resp BP Pulse Ox
98.8 F 83 18 129/73 99
01/27/24 03:48 01/27/24 03:48 01/27/24 03:48 01/27/24 03:48 01/27/24 03:48
Lab Results - Hematology
01/25/24 01/26/24 01/27/24
13:07 07:30 05:38
WBC 18.3 H 16.9 H 12.4 H
Band Neutrophils 11 H
Lab Results - Chemistry
01/25/24 01/25/24 01/26/24
03:23 13:07 07:30
BUN 49 H 40 H 35 H
Creatinine 1.2 H 1.2 H 1.0
Estimated Creat Clear 61 61 74
Albumin 2.6 L 2.6 L
01/27/24
05:38
BUN 34 H
Creatinine 0.9
Estimated Creat Clear 82
Albumin
01/24/24
14:57
Lactic Acid 1.4
Microbiology Results
01/24/24 14:57 Blood Culture - Preliminary
Blood/Venous No Growth in 48 hours- Final report to follow
01/24/24 14:58 Urine Culture - Final
Urine Escherichia coli
01/24/24 09:42 MRSA Screen - Final
Nose No Methicillin Resistant Staphylococcus aureus isolated.
Therapeutic Drug Monitoring
Random Vancomycin 13.2 ug/ml 01/27/24 05:38
[2024-01-27] MEDS: DESENEX/MITRAZOL/ZEASORB 1 APPLIC TOPICAL ×2 (08:24→20:05)
[2024-01-27] MEDS: VOLTAREN RIGHT EYE (08:26)
[2024-01-27] MEDS: EYE RIGHT EYE (08:26)
[2024-01-27 08:45] LABS: Magnesium 1.7 mg/dl (1.6-2.3)
[2024-01-27] MEDS: VANCOCIN 275 MG IV (10:51)
[2024-01-27 11:00] VITALS: BP 101/63
--- NOTE | 2024-01-27 11:54 | W.PN.CD ---
Addendum entered and electronically signed by Иван Bloom MD 01/27/24 12:52:
I saw and examined the patient.
The HOME LENDING OFFICER's note was reviewed and I agree with the note.
Diuretics were adjusted and patient feels like she is urinating more but no reduction in weights are noted. Bed scale currently being used we will try to obtain standing weight.
Asked patient to limit fluid intake. Also will check follow-up proBNP. If this also is not decreasing then we can look at additional diuretic therapy. If proBNP has significant downward trend then would continue with current therapy and use
standing scale weights
Original Note:
Today's Communication / Plan
-
continue IV diuresis.
check proBNP today.
Impression / Plan
-
LLE cellulitis: acute, sepsis.
-treatment of sepsis per primary team with IV abx, received IV fluids.
Pulmonary edema on CXR: acute HFpEF.
- Increase Lasix to 80 IV bid, no change in weight today, continue.
- monitor daily weights, I&O, BP and BMP.
- denies SOB. c/o non-productive cough.
- creatinine improving, check proBNP today.
PAF: paroxysmal.
-remote history of Afib 2012 in setting of sepsis, none seen on her ILR as outpatient.
-plan has been to place her on OAC if any recurrent Afib.
-tele with SR/ST with PAC's.
Hx CVA 2020:
-on plavix, statin
ABRAHAN:
-monitor renal function
Echo 01/24/24:
Normal biventricular size and systolic function without regional wall motion
abnormality.
Mild tricuspid regurgitation.
Estimated pulmonary artery pressure of 35-40 mmHg.
No prior study available for comparison.
IV echo contrast needed for RV/LV assessment.
Physical Exam
Vital Signs/Labs
Vital Signs
Temp Pulse Resp BP Pulse Ox
99.7 F 84 20 113/62 96
01/27/24 07:00 01/27/24 08:12 01/27/24 07:00 01/27/24 08:12 01/27/24 10:35
01/26/24 01/27/24 01/28/24
06:59 06:59 06:59
Actual Weight 293 lb 293 lb 3 oz
01/27/24 05:38
01/27/24 05:38
PT 17.1 Sec (11.4-14.6) H 01/24/24 18:11
INR 1.38 01/24/24 18:11
APTT 38.8 Sec (23.4-35.0) H 01/24/24 18:11
Magnesium Cancelled 01/27/24 06:01
Triglycerides 92 mg/dl (10-149) 01/24/24 14:57
LDL Cholesterol, Calc 15 mg/dl 01/24/24 14:57
VLDL Cholesterol, Calc 18 mg/dl (0-30) 01/24/24 14:57
HDL Cholesterol 47 mg/dl 01/24/24 14:57
01/24/24
14:57
Dfx-Z-Bmzovdclzgi Pept 5500
LAB Results
01/24/24
14:57
Troponin I 0.022
Physical Exam
Constitutional: Other (coughing continuously, non-productive cough)
EENT: Anicteric and Moist mucous membranes
Cardiovascular: Rhythm & rate is regular and Pedal edema present (moderate b/l LE with erythema)
Respiratory: Respiratory effort normal and Lungs clear to auscul.
GI: Soft and Non tender
Neuro/Psych: AO x 3
Other: Skin (warm, dry)
Data Reviewed
-
Date of Service: January 27, 2024
Medical Decision Making: Reviewed Test Results
EKG: Tracing Personally Visualized and interpreted
Echo: Report Reviewed by me
Labs: Labs Reviewed by me
--- NOTE | 2024-01-27 13:12 | W.PN.HOSP.TC ---
Today's Communication/Plan
-
monitor vitals
see plan
cw abx
cw diuresis
daughter updated over the phone
Assessment / Plan
Assessment / Plan
Impression:
Toxic metabolic encephalopathy likely multifactorial due to fever/lower extremity cellulitis, hypoxemia.
Acute hypoxic respiratory insufficiency likely multifactorial due to below
Acute CHF exacerbation preserved EF
Acute pulmonary edema
Acute kidney injury suspect cardiorenal state.
Clinical sepsis/SIRS (fever, hypotension, altered mental status)
Bilateral acute on chronic lower extremity cellulitis complicated with venous stasis and peripheral edema.
Other conditions:
History of CVA with residual right-sided weakness
Essential hypertension.
Paroxysmal atrial fibrillation status post ablation.
Essential hypertension.
Dyslipidemia
Hypothyroidism
GERD.
Bipolar disorder
Insomnia
Gout
Morbid obesity due to excessive calories BMI 55.
Sleep apnea.
PAD by history.
UTI.
Multiple antibiotic allergies
Plan:
Clinical sepsis shortly after presentation on 01/23 including altered mental status, fever, persistent hypotension not responding to IV fluid bolus requiring pressors
Possible sources pulmonary, versus urinary, versus bilateral lower extremity cellulitis
Sepsis shock with hypotension responding to IV fluids. Eventually had not required pressors.
Observe off IV fluids.
Blood cultures negative to date.
Urine culture with E. coli
Lower extremity cellulitis, bilateral, complicated with chronic venous stasis and peripheral edema.
Right lower extremity/calf superficial wound with no evidence of infection.
Doppler negative for DVT
Continue antibiotics vancomycin/aztreonam covering UTI as well as bilateral lower extremity cellulitis.
Toxic metabolic encephalopathy likely multifactorial due to fever/lower extremity cellulitis, hypoxemia.
No focal findings on neurologic exam.
Mental status improved back to baseline
Please hold sedatives including Lyrica.
Okay to continue Depakote (pending level)
Acute CHF exacerbation preserved EF.
Exam with acute on chronic peripheral edema
Chest x-ray consistent with pulmonary edema.
Echocardiogram 01/23: Preserved biventricular size and systolic function. Mild TR. PA pressure 35 to 40 mmHg
Resume IV diuresis Lasix increased to 80 mg twice daily. Hold Bumex
Hypokalemia
Replete potassium
Follow daily weights
Acute hypoxic respiratory insufficiency likely multifactorial.
Respiratory status improved and weaned off oxygen
Continue IV diuresis pain
Lower extremity Doppler negative for DVT.
D-dimer normal.
Low clinical suspicion for thromboembolic disease.
Continue DVT prophylaxis
Obstructive sleep apnea plan
ABG on admission: pH 7.5 on room air
Noted with chronic compensatory metabolic alkalosis
Continue CPAP at night.
Paroxysmal atrial fibrillation by history, remote
Patient reports ablation and loop recorder placed at [facility].
ECG on admission sinus tach.
Continue metoprolol
Patient is not on anticoagulation prior to presentation.
Obtain medical records.
CV score 7 (CHF, hypertension, history of CVA, vascular disease, age, sex)
No recorded A-fib on monitoring.
Currently off anticoagulation
History of CVA with residual weakness and ambulatory dysfunction.
Continue Plavix per
Continue statin
Hemoglobin A1c 5.5
Acute kidney injury
resolved
Suspect cardiorenal state
Monitor renal function with diuresis per
Consider nephrology evaluation.
Avoid NSAIDs
Hypothyroidism on replacement
TSH 0.91
Gout
Continue colchicine/allopurinol
Bipolar disorder
Continue Depakote with caution for oversedation.
Check Depakote level.
Continue meloxicam
Chronic pain.
Hold Lyrica given oversedation
General: Well Developed and No Apparent Distress
HEENT: Normocephalic, Atraumatic and Moist Mucous Membranes
Respiratory: Clear to Auscultation
Cardiac: Regular Rhythm and S1/S2; Negative Murmur, Rub or Gallop
GI: Soft, Nontender, Nondistended and Normal Bowel Sounds
Musculoskeletal: + Edema; LLE erythema
Neuro: Awake, Alert, Oriented and Nonfocal/Grossly Intact
I spent a total of 51 minutes with the patient or on the floor. More than 50% of this time involved counseling and coordination of care.
Anticipated Discharge: > 48 hours
Subjective/Interval History
-
Date of Service: January 27, 2024
denies nausea
Objective Data
-
Labs:
Laboratory Results
01/27/24
05:38
WBC 12.4 H
Hgb 9.9 L
Hct 30.2 L
Plt Count 153
Sodium 141
Potassium 3.5
Chloride 101
Carbon Dioxide 30
BUN 34 H
Creatinine 0.9
Glucose 93
Calcium 8.5
Vital Signs:
Vital Signs
Temp Pulse Resp BP Pulse Ox
98.5 F 85 16 101/63 98
01/27/24 11:00 01/27/24 11:00 01/27/24 11:00 01/27/24 11:00 01/27/24 11:00
I&O
01/26/24 01/27/24 01/28/24
06:59 06:59 06:59
Intake Total 840 / 840 1320 / 1320
Output Total 600 / 600
Balance 240 / 240 1320 / 1320
[2024-01-27 13:18] LABS: NT-proBNP 1150 pg/ml
[2024-01-27 15:00] VITALS: BP 117/74
[2024-01-27 19:35] VITALS: BP 139/70
[2024-01-27] MEDS: VITAMIN C 500 MG PO (20:07)
[2024-01-27] MEDS: LIPITOR 40 MG PO (20:07)
[2024-01-27] MEDS: XALATAN OPHTHALMIC SOLUTION 1 DROP BOTH EYES (20:07)
[2024-01-27] MEDS: MELATONIN 10 MG PO (20:07)
[2024-01-27 23:39] VITALS: BP 123/56
[2024-01-28] MEDS: STERILE WATER FOR INJECTION 10 ML IV ×4 (00:52→23:02)
[2024-01-28] MEDS: HEPARIN 5000 UNITS SC ×4 (00:52→23:02)
[2024-01-28] MEDS: FLUSH (NSS) 1 FLUSH IV (00:52)
[2024-01-28] MEDS: AZACTAM 1000 MG IV ×4 (00:52→23:02)
[2024-01-28] MEDS: TESSALON PERLES 100 MG PO (01:01)
[2024-01-28 03:26] VITALS: BP 131/70
[2024-01-28] MEDS: SYNTHROID 50 MCG PO (05:08)
[2024-01-28 06:00] VITALS: BMI 50.2
[2024-01-28 07:25] VITALS: BP 135/65
[2024-01-28 08:17] LABS: Hematocrit 31.3 % (37.0-47.0); Hemoglobin 10.1 g/dL (12.0-16.0); Mean Corp Hgb Conc. 32.3 g/dL (33.0-37.0); Mean Corpuscular Hgb 29.2 pg (27.0-31.0); Mean Corpuscular Volume 90.5 fL (81.0-99.0); Mean Platelet Volume 11.7 fL (7.4-10.4); Platelet Count 193 10^3/uL (130-400); Red Blood Cell Count 3.46 10^6/uL (4.20-5.40); Red Cell Dist. Width 15.6 % (11.5-14.5); White Blood Cell Count 9.7 10^3/uL (4.8-10.8)
[2024-01-28 08:31] LABS: Vancomycin Random 9.5 ug/ml
[2024-01-28] MEDS: ZYLOPRIM 300 MG PO (08:59)
[2024-01-28] MEDS: REFRESH EYE DROPS (PF) 1 DROPS BOTH EYES ×3 (08:59→20:43)
[2024-01-28] MEDS: EFFEXOR XR 75 MG PO (08:59)
[2024-01-28] MEDS: B COMPLEX w/VITAMIN C 1 CAPLET PO (08:59)
[2024-01-28] MEDS: CLARITIN 10 MG PO (08:59)
[2024-01-28] MEDS: PROTONIX 20 MG PO (08:59)
[2024-01-28] MEDS: DETROL LA 4 MG PO (08:59)
[2024-01-28] MEDS: PLAVIX 75 MG PO (08:59)
[2024-01-28] MEDS: HIPREX 1 GRAM PO ×2 (08:59→20:43)
[2024-01-28] MEDS: SENOKOT 8.6 MG PO ×2 (09:00→20:44)
[2024-01-28] MEDS: TOPROL XL 25 MG PO (09:00)
[2024-01-28] MEDS: EFFEXOR XR 150 MG PO (09:00)
[2024-01-28] MEDS: LIDOCAINE 4% PATCH 1 PATCH TOPICAL (09:00)
[2024-01-28] MEDS: ZYLOPRIM 100 MG PO (09:01)
[2024-01-28] MEDS: VOLTAREN RIGHT EYE (09:04)
[2024-01-28] MEDS: EYE RIGHT EYE (09:04)
[2024-01-28] MEDS: DEPAKOTE (12 HR RELEASE) 125 MG PO ×2 (09:05→20:43)
[2024-01-28] MEDS: FLEXERIL 5 MG PO ×2 (09:05→20:43)
[2024-01-28] MEDS: DEPAKOTE (12 HR RELEASE) 500 MG PO ×2 (09:05→20:43)
[2024-01-28 09:06] LABS: Blood Urea Nitrogen 27 mg/dl (7-17); Calcium 8.6 mg/dl (8.4-10.2); Carbon Dioxide 29 mmol/L (22-30); Chloride 101 mmol/L (98-107); Estimated Creatinine Clearance 90 ml/min; Glucose 96 mg/dl (70-99); Magnesium 1.7 mg/dl (1.6-2.3); Sodium 142 mmol/L (135-145); eGFR > 60.00
[2024-01-28] MEDS: DESENEX/MITRAZOL/ZEASORB 1 APPLIC TOPICAL ×2 (09:06→20:44)
[2024-01-28] MEDS: COLCHICINE 0.6 MG PO (09:06)
[2024-01-28] MEDS: LASIX 80 MG IV ×2 (09:07→16:04)
--- NOTE | 2024-01-28 09:41 | PHA.VAN.FU ---
Vancomycin Assessment / Plan
- Assessment
Renal Function: Stable
WBC's are: Trending Down
In the past 24 hrs, patient has been: Afebrile
Concomitant Antimicrobials: Aztreonam
- Assessment - Therapeutic Drug Monitoring
Random Level: R = 9.5 ~ 20hrs post Vanc 1250mg
- Dosing Plan
Continue: Dose by level
Dosing by Level: Re-dose today (Vanc 1500mg IV)
- Monitoring Plan
Random Level: 10/14 AM
- Follow Up
Pharmacy will continue to follow.
Vancomycin Follow UP
- -
Patient Age: 68
Patient Sex: Female
Vancomycin Day #: 5
Indication: Skin And Soft Tissue
Requesting Provider: Dr. Acevedo
Pertinent Antimicrobial Allergies:
amoxicillin - unknown
cefuroxime - unknown
cephalexin - unknown
sulfa/trimethoprim - unknown
trovafloxacin - unknown
nitrofurantoin - unknown
Height / Weight:
Height 5 ft 3 in
Actual Weight 128.395 kg
Pertinent Past Medical History: BMI ~56, PVD
- Vital Signs / Lab Results
Temp Pulse Resp BP Pulse Ox
98.4 F 92 17 135/65 96
01/28/24 07:25 01/28/24 07:25 01/28/24 07:25 01/28/24 07:25 01/28/24 07:25
Lab Results - Hematology
01/25/24 01/26/24 01/27/24
13:07 07:30 05:38
WBC 18.3 H 16.9 H 12.4 H
Band Neutrophils 11 H
01/28/24
07:11
WBC 9.7
Band Neutrophils
Lab Results - Chemistry
01/25/24 01/26/24 01/27/24
13:07 07:30 05:38
BUN 40 H 35 H 34 H
Creatinine 1.2 H 1.0 0.9
Estimated Creat Clear 61 74 82
Albumin 2.6 L 2.6 L
01/28/24
07:11
BUN 27 H
Creatinine 0.8
Estimated Creat Clear 90
Albumin
Microbiology Results
01/24/24 14:57 Blood Culture - Preliminary
Blood/Venous No Growth in 72 hours- Final report to follow
01/24/24 14:58 Urine Culture - Final
Urine Escherichia coli
Therapeutic Drug Monitoring
Random Vancomycin 9.5 ug/ml 01/28/24 07:11
[2024-01-28] MEDS: VANCOCIN 300 MG IV (10:13)
[2024-01-28] MEDS: VANCOCIN 300 ML IV (10:13)
[2024-01-28 10:48] LABS: % Basophils 0.7 % (0-2); % Eosinophils 2.1 % (0-6); % Immature Granulocytes 6.5 % (0-0.5); % Lymphocytes 16.3 % (20.5-51.1); % Monocytes 9.9 % (1.7-9.3); % Neutrophils 64.5 % (42.2-75.2); Absolute Basophils 0.1 10^3/uL (0-0.2); Absolute Eosinophils 0.2 10^3/uL (0-0.7); Absolute Immature Granulocytes 0.6 10^3/uL (0-0.05); Absolute Lymphocytes 1.6 10^3/uL (1.2-3.4); Absolute Neutrophils 6.3 10^3/uL (1.4-6.5); Nucleated Red Blood Cells % 0.2 %
[2024-01-28 11:20] VITALS: BP 128/72
--- NOTE | 2024-01-28 11:51 | W.PN.HOSP.TC ---
Today's Communication/Plan
-
Monitor vital signs see plan
Replete potassium
Continue diuresis
Continue antibiotics
Assessment / Plan
Assessment / Plan
Impression:
Toxic metabolic encephalopathy likely multifactorial due to fever/lower extremity cellulitis, hypoxemia.
Acute hypoxic respiratory insufficiency likely multifactorial due to below
Acute CHF exacerbation preserved EF
Acute pulmonary edema
Acute kidney injury suspect cardiorenal state.
Clinical sepsis/SIRS (fever, hypotension, altered mental status)
Bilateral acute on chronic lower extremity cellulitis complicated with venous stasis and peripheral edema.
Hypokalemia
Other conditions:
History of CVA with residual right-sided weakness
Essential hypertension.
Paroxysmal atrial fibrillation status post ablation.
Essential hypertension.
Dyslipidemia
Hypothyroidism
GERD.
Bipolar disorder
Insomnia
Gout
Morbid obesity due to excessive calories BMI 55.
Sleep apnea.
PAD by history.
UTI.
Multiple antibiotic allergies
Plan:
Clinical sepsis shortly after presentation on 01/23 including altered mental status, fever, persistent hypotension not responding to IV fluid bolus requiring pressors
Possible sources pulmonary, versus urinary, versus bilateral lower extremity cellulitis
Sepsis shock with hypotension responding to IV fluids. Eventually had not required pressors.
Observe off IV fluids.
Blood cultures negative to date.
Urine culture with E. coli
Lower extremity cellulitis, bilateral, complicated with chronic venous stasis and peripheral edema.
Right lower extremity/calf superficial wound with no evidence of infection.
Doppler negative for DVT
Continue antibiotics vancomycin/aztreonam covering UTI as well as bilateral lower extremity cellulitis.
Toxic metabolic encephalopathy likely multifactorial due to fever/lower extremity cellulitis, hypoxemia.
No focal findings on neurologic exam.
Mental status improved back to baseline
Please hold sedatives including Lyrica.
Okay to continue Depakote (pending level)
Acute CHF exacerbation preserved EF.
Exam with acute on chronic peripheral edema
Chest x-ray consistent with pulmonary edema.
Echocardiogram 01/23: Preserved biventricular size and systolic function. Mild TR. PA pressure 35 to 40 mmHg
Resume IV diuresis Lasix increased to 80 mg twice daily. Hold Bumex
Hypokalemia
Replete potassium; 3 todsy
Follow daily weights
Acute hypoxic respiratory insufficiency likely multifactorial.
Respiratory status improved and weaned off oxygen
Continue IV diuresis pain
Lower extremity Doppler negative for DVT.
D-dimer normal.
Low clinical suspicion for thromboembolic disease.
Continue DVT prophylaxis
Obstructive sleep apnea plan
ABG on admission: pH 7.5 on room air
Noted with chronic compensatory metabolic alkalosis
Continue CPAP at night.
Paroxysmal atrial fibrillation by history, remote
Patient reports ablation and loop recorder placed at [facility].
ECG on admission sinus tach.
Continue metoprolol
Patient is not on anticoagulation prior to presentation.
Obtain medical records.
CV score 7 (CHF, hypertension, history of CVA, vascular disease, age, sex)
No recorded A-fib on monitoring.
Currently off anticoagulation
History of CVA with residual weakness and ambulatory dysfunction.
Continue Plavix per
Continue statin
Hemoglobin A1c 5.5
Acute kidney injury
resolved
Suspect cardiorenal state
Monitor renal function with diuresis per
Consider nephrology evaluation.
Avoid NSAIDs
Hypothyroidism on replacement
TSH 0.91
Gout
Continue colchicine/allopurinol
Bipolar disorder
Continue Depakote with caution for oversedation.
Check Depakote level.
Continue meloxicam
Chronic pain.
Hold Lyrica given oversedation
General: Well Developed and No Apparent Distress
HEENT: Normocephalic, Atraumatic and Moist Mucous Membranes
Respiratory: Clear to Auscultation
Cardiac: Regular Rhythm and S1/S2; Negative Murmur, Rub or Gallop
GI: Soft, Nontender, Nondistended and Normal Bowel Sounds
Musculoskeletal: + Edema; LLE erythema
Neuro: Awake, Alert, Oriented and Nonfocal/Grossly Intact
Anticipated Discharge: > 48 hours
Subjective/Interval History
-
Date of Service: January 28, 2024
denies pain
Objective Data
-
Labs:
Laboratory Results
01/28/24
07:11
WBC 9.7
Hgb 10.1 L
Hct 31.3 L
Plt Count 193 D
Sodium 142
Potassium 3.0 L
Chloride 101
Carbon Dioxide 29
BUN 27 H
Creatinine 0.8
Glucose 96
Calcium 8.6
Vital Signs:
Vital Signs
Temp Pulse Resp BP Pulse Ox
97.8 F 90 17 128/72 98
01/28/24 11:20 01/28/24 11:20 01/28/24 11:20 01/28/24 11:20 01/28/24 11:20
I&O
01/27/24 01/28/24 01/29/24
06:59 06:59 06:59
Intake Total 1320 / 1320 1200 / 1200
Balance 1320 / 1320 1200 / 1200
[2024-01-28] MEDS: KCL 40 MEQ PO ×2 (13:23→15:56)
--- NOTE | 2024-01-28 14:59 | PTCARENOTE ---
Patient is awake , alert, emotionally labile , strange affect. Pt is able to follow commands, gets easily agitated whem asked to do things. Called 911 to report someone 'she didn't know had entered her room' Pt reoriented but insisted 'the
person' was 'in and out of her room many times' . Frequent checks maintained with patient. She was out of bed for 4 hours today, took max assist of 3 . Incontinent large amounts of urine, and had large bm, some in diaper and some on bedside
commode. Call rivera in reach.
[2024-01-28 15:25] VITALS: BP 114/58
--- NOTE | 2024-01-28 16:18 | W.PN.CD ---
Today's Communication / Plan
-
Respiratory status stable. proBNP is significantly improved.
Monitor renal function
consider transition to oral diuretic in a.m. Patient was on Bumex prior to admission appears patient was on 1.5 mg in a.m. and 1 mg nightly can change to 1.5 twice daily
Impression / Plan
-
LLE cellulitis: acute, sepsis.
-treatment of sepsis per primary team with IV abx, received IV fluids.
Pulmonary edema on CXR: acute HFpEF.
- Increase Lasix to 80 IV bid, concern for no clear change in weight by bed scale appears lower by standing scale today also patient's proBNP has significantly improved.
- monitor daily weights, I&O, BP and BMP.
- denies SOB. c/o non-productive cough.
- creatinine improving, renal function improved.
PAF: paroxysmal.
-remote history of Afib 2012 in setting of sepsis, none seen on her ILR as outpatient.
-plan has been to place her on OAC if any recurrent Afib.
-tele with SR/ST with PAC's.
Hx CVA 2020:
-on plavix, statin
ABRAHAN:
-monitor renal function
Echo 01/24/24:
Normal biventricular size and systolic function without regional wall motion
abnormality.
Mild tricuspid regurgitation.
Estimated pulmonary artery pressure of 35-40 mmHg.
No prior study available for comparison.
IV echo contrast needed for RV/LV assessment.
Physical Exam
Vital Signs/Labs
Vital Signs
Temp Pulse Resp BP Pulse Ox
97.8 F 90 17 128/72 98
01/28/24 11:20 01/28/24 11:20 01/28/24 11:20 01/28/24 11:20 01/28/24 11:20
01/27/24 01/28/24 01/29/24
06:59 06:59 06:59
Actual Weight 132.988 kg 128.395 kg
01/28/24 07:11
01/28/24 07:11
PT 17.1 Sec (11.4-14.6) H 01/24/24 18:11
INR 1.38 01/24/24 18:11
APTT 38.8 Sec (23.4-35.0) H 01/24/24 18:11
Magnesium 1.7 mg/dl (1.6-2.3) 01/28/24 07:11
Triglycerides 92 mg/dl (10-149) 01/24/24 14:57
LDL Cholesterol, Calc 15 mg/dl 01/24/24 14:57
VLDL Cholesterol, Calc 18 mg/dl (0-30) 01/24/24 14:57
HDL Cholesterol 47 mg/dl 01/24/24 14:57
01/24/24 01/27/24
14:57 05:38
Nkz-S-Yfxqcoguyrf Pept 5500 1150
Physical Exam
Constitutional: No acute distress
Cardiovascular: Rhythm & rate is regular
Respiratory: Respiratory effort normal
GI: Soft
Data Reviewed
-
Date of Service: January 28, 2024
Medical Decision Making: Reviewed Test Results
Medical Tests (PFT, Pathology etc): Report Reviewed by me
Labs: Labs Reviewed by me
[2024-01-28 19:38] VITALS: BP 136/71
[2024-01-28] MEDS: VITAMIN C 500 MG PO (20:43)
[2024-01-28] MEDS: LIPITOR 40 MG PO (20:44)
[2024-01-28] MEDS: MELATONIN 10 MG PO (20:44)
[2024-01-28] MEDS: TYLENOL 650 MG PO (20:52)
[2024-01-28] MEDS: XALATAN OPHTHALMIC SOLUTION 1 DROP BOTH EYES (20:56)
[2024-01-28 23:29] VITALS: BP 139/66
[2024-01-29 03:20] VITALS: BP 141/73
[2024-01-29] MEDS: SYNTHROID 50 MCG PO (05:04)
[2024-01-29 06:00] VITALS: BMI 50.0
[2024-01-29 07:56] VITALS: BP 137/81
[2024-01-29 08:11] LABS: % Basophils 0.9 % (0-2); % Eosinophils 1.4 % (0-6); % Immature Granulocytes 11.4 % (0-0.5); % Lymphocytes 21.2 % (20.5-51.1); % Monocytes 9.1 % (1.7-9.3); Absolute Basophils 0.1 10^3/uL (0-0.2); Absolute Eosinophils 0.1 10^3/uL (0-0.7); Absolute Immature Granulocytes 1.1 10^3/uL (0-0.05); Absolute Lymphocytes 2.1 10^3/uL (1.2-3.4); Absolute Monocytes 0.9 10^3/uL (0.1-0.6); Absolute Neutrophils 5.4 10^3/uL (1.4-6.5); Hematocrit 31.3 % (37.0-47.0); Hemoglobin 10.3 g/dL (12.0-16.0); Mean Corp Hgb Conc. 32.9 g/dL (33.0-37.0); Mean Corpuscular Hgb 29.8 pg (27.0-31.0); Mean Corpuscular Volume 90.5 fL (81.0-99.0); Mean Platelet Volume 11.9 fL (7.4-10.4); Nucleated Red Blood Cells % 0.3 %; Platelet Count 221 10^3/uL (130-400); Red Blood Cell Count 3.46 10^6/uL (4.20-5.40); Red Cell Dist. Width 15.9 % (11.5-14.5); White Blood Cell Count 9.7 10^3/uL (4.8-10.8)
[2024-01-29 08:19] LABS: Vancomycin Random 10.2 ug/ml
[2024-01-29 08:41] LABS: Absolute Neutrophils -Man Diff 5.9 10^3/uL (1.4-6.5); Band Neutrophils 3 % (0-3); Blood Urea Nitrogen 27 mg/dl (7-17); Calcium 8.8 mg/dl (8.4-10.2); Carbon Dioxide 32 mmol/L (22-30); Chloride 104 mmol/L (98-107); Eosinophils 2 % (0-6); Estimated Creatinine Clearance 90 ml/min; Glucose 98 mg/dl (70-99); Lymphocytes 24 % (20-51); Metamyelocytes 8 % (-); Monocytes 3 % (2-9); Myelocytes 2 % (-); Potassium 3.7 mmol/L (3.5-5.1); Segmented Neutrophils 58 % (42-75); Sodium 145 mmol/L (135-145); eGFR > 60.00
[2024-01-29 08:42] LABS: Anisocytosis 1+; Hypochromasia 1+; Normal RBC Morphology No; Ovalocytes 1+; Platelets Checked Yes; Polychromasia 1+
[2024-01-29 08:43] LABS: Acanthocytes 1+; Total Cells Counted 100
--- NOTE | 2024-01-29 08:53 | PHA.VAN.FU ---
Vancomycin Assessment / Plan
- Assessment
Renal Function: Stable
WBC's are: WNL
In the past 24 hrs, patient has been: Afebrile
Concomitant Antimicrobials: aztreonam
- Assessment - Therapeutic Drug Monitoring
Random Level: 10.2 - drawn ~21H after previous dose of 1500mg
- Dosing Plan
Adjust Regimen to: Vanc 1500mg Q24H based on level trends
Dosing Comments: patient does not follow population-PK
CrCl may be overestimated due to weight
- Monitoring Plan
No level(s) ordered at this time: follow levels closely - consider repeat levels every 2-3 days
Monitoring Comments: will consider next level for Wed
- Follow Up
Pharmacy will continue to follow.
Vancomycin Follow UP
- -
Patient Age: 68
Patient Sex: Female
Vancomycin Day #: 6
Indication: Skin And Soft Tissue
Requesting Provider: Dr. Acevedo
Pertinent Antimicrobial Allergies:
amoxicillin - unknown
cefuroxime - unknown
cephalexin - unknown
sulfa/trimethoprim - unknown
trovafloxacin - unknown
nitrofurantoin - unknown
Height / Weight:
Height 5 ft 3 in
Actual Weight 128.055 kg
Pertinent Past Medical History: BMI ~56, PVD
- Vital Signs / Lab Results
Temp Pulse Resp BP Pulse Ox
98.5 F 84 17 137/81 96
01/29/24 07:56 01/29/24 07:56 01/29/24 07:56 01/29/24 07:56 01/29/24 07:56
Lab Results - Hematology
01/26/24 01/27/24 01/28/24
07:30 05:38 07:11
WBC 12.4 H 9.7
Band Neutrophils 11 H
01/29/24
07:35
WBC 9.7
Band Neutrophils 3 D
Lab Results - Chemistry
01/26/24 01/27/24 01/28/24
07:30 05:38 07:11
BUN 35 H 34 H 27 H
Creatinine 1.0 0.9 0.8
Estimated Creat Clear 74 82 90
Albumin 2.6 L
01/29/24
07:35
BUN 27 H
Creatinine 0.8
Estimated Creat Clear 90
Albumin
Microbiology Results
01/24/24 14:57 Blood Culture - Preliminary
Blood/Venous No Growth in 4 days- Final report to follow
Therapeutic Drug Monitoring
Random Vancomycin 10.2 ug/ml 01/29/24 07:35
--- NOTE | 2024-01-29 09:04 | W.PN.CD ---
Today's Communication / Plan
-
Transition to PO bumex 1.5 mg bid
We will sign off please call with questions/concerns.
Impression / Plan
-
LLE cellulitis: acute, sepsis.
-treatment of sepsis per primary team with IV abx, received IV fluids.
Pulmonary edema on CXR: acute HFpEF.
- weight decreased significant 282 lbs, also proBNP improvment
- monitor daily weights, I&O, BP and BMP.
- denies SOB. c/o non-productive cough.
- cr stable
- transition to bumex 1.5 mg bid
PAF: paroxysmal.
-remote history of Afib 2013 in setting of sepsis, none seen on her ILR as outpatient.
-plan has been to place her on OAC if any recurrent Afib.
-tele with SR/ST with PAC's.
Hx CVA 2020:
-on plavix, statin
ABRAHAN:
-monitor renal function
Echo 01/24/24:
Normal biventricular size and systolic function without regional wall motion
abnormality.
Mild tricuspid regurgitation.
Estimated pulmonary artery pressure of 35-40 mmHg.
No prior study available for comparison.
IV echo contrast needed for RV/LV assessment.
Subjective: No new complaints breathing stable weight down ~20 lbs
Physical Exam
Vital Signs/Labs
Vital Signs
Temp Pulse Resp BP Pulse Ox
98.5 F 84 17 137/81 96
01/29/24 07:56 01/29/24 07:56 01/29/24 07:56 01/29/24 07:56 01/29/24 07:56
01/28/24 01/29/24 01/30/24
06:59 06:59 06:59
Actual Weight 283 lb 1 oz 282 lb 5 oz
01/29/24 07:35
01/29/24 07:35
PT 17.1 Sec (11.4-14.6) H 01/24/24 18:11
INR 1.38 01/24/24 18:11
APTT 38.8 Sec (23.4-35.0) H 01/24/24 18:11
Magnesium 1.7 mg/dl (1.6-2.3) 01/28/24 07:11
Triglycerides 92 mg/dl (10-149) 01/24/24 14:57
LDL Cholesterol, Calc 15 mg/dl 01/24/24 14:57
VLDL Cholesterol, Calc 18 mg/dl (0-30) 01/24/24 14:57
HDL Cholesterol 47 mg/dl 01/24/24 14:57
01/24/24 01/27/24
14:57 05:38
Hrs-N-Jqrapvsjckv Pept 5500 1150
Physical Exam
Constitutional: No acute distress
EENT: Anicteric
Cardiovascular: Rhythm & rate is regular and Pedal edema present (trivial)
Respiratory: Respiratory effort normal and Lungs clear to auscul.
GI: Soft
Neuro/Psych: Alert and Oriented
Data Reviewed
-
Date of Service: January 29, 2024
EKG: Tracing Personally Visualized and interpreted (sr)
Echo: Report Reviewed by me
Labs: Labs Reviewed by me
[2024-01-29] MEDS: AZACTAM IV (10:47)
[2024-01-29] MEDS: COLCHICINE PO (10:48)
[2024-01-29] MEDS: DEPAKOTE (12 HR RELEASE) PO ×4 (10:48→21:14)
[2024-01-29] MEDS: B COMPLEX w/VITAMIN C PO (10:48)
[2024-01-29] MEDS: CLARITIN PO (10:48)
[2024-01-29] MEDS: EFFEXOR XR PO ×2 (10:49→10:50)
[2024-01-29] MEDS: DETROL LA PO (10:49)
[2024-01-29] MEDS: DESENEX/MITRAZOL/ZEASORB TOPICAL ×2 (10:49→21:14)
[2024-01-29] MEDS: FLEXERIL PO ×2 (10:50→21:14)
[2024-01-29] MEDS: HEPARIN SC ×3 (10:50→23:50)
[2024-01-29] MEDS: HIPREX PO ×2 (10:50→21:14)
[2024-01-29] MEDS: PLAVIX PO (10:51)
[2024-01-29] MEDS: LIDOCAINE 4% PATCH TOPICAL (10:51)
[2024-01-29] MEDS: PROTONIX PO (10:51)
[2024-01-29] MEDS: VOLTAREN RIGHT EYE (10:52)
[2024-01-29] MEDS: SENOKOT PO ×2 (10:52→21:14)
[2024-01-29] MEDS: EYE RIGHT EYE (10:52)
[2024-01-29] MEDS: STERILE WATER FOR INJECTION IV ×3 (10:52→23:51)
[2024-01-29] MEDS: REFRESH EYE DROPS (PF) BOTH EYES ×3 (10:52→22:09)
[2024-01-29] MEDS: ZYLOPRIM PO ×2 (10:53)
[2024-01-29] MEDS: TOPROL XL PO (10:54)
[2024-01-29] MEDS: LASIX IV (10:57)
--- NOTE | 2024-01-29 12:00 | PTCARENOTE ---
Patient was found to have walked with her walker out the back stairwell of the unit. She was at the steps when she was stopped, but she refused to come back and staff assisted her to sit on the floor at the top of the stairs. Veto Johnson called. She
was incontinent at this time of a large amount of soft stool and large amount of urine. She was agitated and resistant to getting back up and with staff attempting to assist her and cleaning up the urine and stool around her grabbing the towels and
throwing them at staff. She was also and having confused conversation. She was lifted up off the floor into a wheel chair and taken back to her room where she was cleaned up. Bed alarm in place, med sitter in place. At this time she is not making
any attempts to get out of bed and is not agitated.
--- NOTE | 2024-01-29 14:21 | PTCARENOTE ---
Pt was uncooperative this morning. She refused all meds and treatment. took off telemetry and took out her IV, refusing to have either replaced. She was frequently, loudly calling out to her daughter as if she was here in the [place]. She got up and
walked out of the room with a walker and tried to leave the unit via the stairwell. She was discovered at the top of the stairs. She refused to go back to her room. A pamella poe was called. She was guided by staff to sit at the top of the stairs
where she had a lg soft bowel mvmt and was incontinent of urine too. She continued to be uncooperative, so staff lifted her onto a WC and we got her back to the room and was put in bed, cleaned up and gown changed. Med sitter was put in place. There
have been no incidents since.
--- NOTE | 2024-01-29 15:09 | W.DS.TRANS ---
DC Summary - Blade Filer
-
Discharge Instructions:
Discharge Diagnosis/Procedures Impression:
Toxic metabolic encephalopathy likely
multifactorial due to fever/lower extremity
cellulitis, hypoxemia.
Acute hypoxic respiratory insufficiency likely
multifactorial due to below
Acute CHF exacerbation preserved EF
Acute pulmonary edema
Acute kidney injury suspect cardiorenal state.
Clinical sepsis/SIRS (fever, hypotension,
altered mental status)
Bilateral acute on chronic lower extremity
cellulitis complicated with venous stasis and
peripheral edema.
Hypokalemia
Other conditions:
History of CVA with residual right-sided
weakness
Essential hypertension.
Paroxysmal atrial fibrillation status post
ablation.
Essential hypertension.
Dyslipidemia
Hypothyroidism
GERD.
Bipolar disorder
Insomnia
Gout
Morbid obesity due to excessive calories BMI 55.
Sleep apnea.
PAD by history.
UTI.
Multiple antibiotic allergies
Instructions:
Stand-Alone Forms:
Changes to Home Medications: Yes
Discharge Medications:
DC Medications w/original date entered in [employer]
clopidogrel 75 mg tablet 75 mg PO DAILY 02/25/21
levothyroxine 50 mcg tablet 50 mcg PO DAILY 02/25/21
loratadine 10 mg tablet 10 mg PO DAILY 02/25/21
magnesium hydroxide 400 mg/5 mL oral suspension 30 ml PO DAILYPRN PRN if no bm x 3 days 02/25/21
venlafaxine 150 mg capsule,extended release 24 hr (Effexor XR) 150 mg PO DAILY 02/25/21
allopurinol 100 mg tablet 100 mg PO DAILY ##0 02/16/22
colchicine 0.6 mg capsule 0.6 mg PO DAILY 02/16/22
ergocalciferol (vitamin D2) 1,250 mcg (50,000 unit) capsule (Drisdol) 1,250 mcg PO WEEKLY ##0 02/16/22
estradiol 0.01% (0.1 mg/gram) vaginal cream 1 appful vaginal MOWEFR ##0 02/16/22
loperamide 2 mg tablet (Imodium A-D) 2 mg PO PRN PRN diarrhea 02/17/22
metoprolol succinate 25 mg tablet,extended release 24 hr 25 mg PO DAILY 02/17/22
acetaminophen 325 mg tablet 650 mg PO Q4HPRN PRN mild pain/temp>100 01/23/24
allopurinol 300 mg tablet 300 mg PO DAILY 01/23/24
ascorbic acid (vitamin C) 500 mg tablet (Vitamin C) 500 mg PO HS 01/23/24
atorvastatin 40 mg tablet 40 mg PO HS 01/23/24
bisacodyl 10 mg rectal suppository (Dulcolax (bisacodyl)) 10 mg GA DAILYPRN PRN if mom is ineffective after 24hrs 01/23/24
bumetanide 1 mg tablet 1 mg PO HS 01/23/24
clobetasol 0.05 % topical cream 1 applic topical [id number] PRN rash on abdominal,groin area 01/23/24
cranberry extract 200 mg capsule (Ellura) 200 mg PO DAILY 01/23/24
cyclobenzaprine 5 mg tablet 5 mg PO BID 01/23/24
diclofenac sodium 0.1 % eye drops 1 drp RIGHT EYE DAILY 01/23/24
divalproex 125 mg tablet,delayed release 125 mg PO BID 01/23/24
divalproex 500 mg tablet,delayed release 500 mg PO BID 01/23/24
fluticasone propionate 50 mcg/actuation nasal spray,suspension 2 spray intranasal DAILY 01/23/24
ipratropium 0.5 mg-albuterol 3 mg (2.5 mg base)/3 mL nebulization soln 3 ml inhalation R Q6HPRN PRN sob/cough 01/23/24
latanoprost 0.005 % eye drops 1 drp BOTH EYES HS 01/23/24
lidocaine 5 % topical patch (Lidoderm) 1 patch topical DAILY b/l knees 01/23/24
melatonin 10 mg tablet 10 mg PO HS 01/23/24
methenamine hippurate 1 gram tablet 1 g PO BID 01/23/24
omega-3 fatty acids 1,000 mg capsule 1,000 mg PO DAILY 01/23/24
pantoprazole 20 mg tablet,delayed release 20 mg PO DAILY 01/23/24
polyvinyl alcohol 1.4 % eye drops (Artificial Tears (polyvinyl alcohol)) 1 drp BOTH EYES TID 01/23/24
sennosides 8.6 mg tablet (senna) 8.6 mg PO BID 01/23/24
sodium phosphates 19 gram-7 gram/118 mL enema (Fleet Enema) 118 ml GA DAILYPRN PRN if dulcolax is ineffective in 24hrs 01/23/24
venlafaxine 75 mg capsule,extended release 24 hr 75 mg PO DAILY 01/23/24
vibegron 75 mg tablet (Gemtesa) 75 mg PO DAILY 01/23/24
vitamin B complex 1 tab PO DAILY 01/23/24
zinc oxide 10 % topical cream 1 applic topical DAILYPRN PRN rash on groin 01/23/24
bumetanide 1 mg tablet 1.5 mg (1.5 x 1 mg) PO BID #60 tabs 01/29/24
doxycycline hyclate 100 mg capsule 100 mg PO Q12 #10 caps 01/29/24
Home Medication Changes
Lyrica stopped.
Pending Results: No
--- NOTE | 2024-01-29 15:48 | CM ---
CM reviewed chart, patient on medistter, code lui called, discussed with Kristin in Admissions at [facility]. Per [facility], spoke with DON at facility, patient typically cooperative, calm, not baseline behavior for patient. Update to
Hospitalist and nurse. CM will send updated referral in [facility]. CM will continue to follow for all discharge planning needs.
Plan; return to [facility] LT when stable.
--- NOTE | 2024-01-29 17:16 | W.PN.HOSP.TC ---
Today's Communication/Plan
-
Mental status improved and back to baseline
Continue hold Lyrica for oversedation
Consolidate antibiotics to oral doxycycline
Transition to oral diuretics Bumex 1.5 mg twice daily.
Discharge planing
Assessment / Plan
Assessment / Plan
Impression:
Toxic metabolic encephalopathy likely multifactorial due to fever/lower extremity cellulitis, hypoxemia.
Acute hypoxic respiratory insufficiency likely multifactorial due to below
Acute CHF exacerbation preserved EF
Acute pulmonary edema
Acute kidney injury suspect cardiorenal state.
Clinical sepsis/SIRS (fever, hypotension, altered mental status)
Bilateral acute on chronic lower extremity cellulitis complicated with venous stasis and peripheral edema.
Hypokalemia
Other conditions:
History of CVA with residual right-sided weakness
Essential hypertension.
Paroxysmal atrial fibrillation status post ablation.
Essential hypertension.
Dyslipidemia
Hypothyroidism
GERD.
Bipolar disorder
Insomnia
Gout
Morbid obesity due to excessive calories BMI 55.
Sleep apnea.
PAD by history.
UTI.
Multiple antibiotic allergies
Plan:
Clinical sepsis shortly after presentation on 01/23 including altered mental status, fever, persistent hypotension not responding to IV fluid bolus requiring pressors
Possible sources pulmonary, versus urinary, versus bilateral lower extremity cellulitis
Sepsis shock with hypotension responding to IV fluids. Eventually had not required pressors.
Observe off IV fluids.
Blood cultures negative to date.
Urine culture with E. coli
Lower extremity cellulitis, bilateral, complicated with chronic venous stasis and peripheral edema.
Right lower extremity/calf superficial wound with no evidence of infection.
Doppler negative for DVT
Consolidate antibiotics to oral doxycycline
Toxic metabolic encephalopathy likely multifactorial due to fever/lower extremity cellulitis, hypoxemia.
No focal findings on neurologic exam.
Mental status improved back to baseline
Please hold sedatives including Lyrica.
Okay to continue Depakote
Mental status back to baseline
Acute CHF exacerbation preserved EF.
Exam with acute on chronic peripheral edema
Chest x-ray consistent with pulmonary edema.
Echocardiogram 01/23: Preserved biventricular size and systolic function. Mild TR. PA pressure 35 to 40 mmHg
Responding to diuresis.
Respiratory status stable
Transition off IV Lasix to Bumex 1.5 mg twice daily
Acute hypoxic respiratory insufficiency likely multifactorial.
Respiratory status improved and weaned off oxygen
Continue IV diuresis pain
Lower extremity Doppler negative for DVT.
D-dimer normal.
Low clinical suspicion for thromboembolic disease.
Continue DVT prophylaxis
Obstructive sleep apnea plan
ABG on admission: pH 7.5 on room air
Noted with chronic compensatory metabolic alkalosis
Continue CPAP at night.
Paroxysmal atrial fibrillation by history, remote
Patient reports ablation and loop recorder placed at [facility].
ECG on admission sinus tach.
Continue metoprolol
Patient is not on anticoagulation prior to presentation.
Obtain medical records.
CV score 7 (CHF, hypertension, history of CVA, vascular disease, age, sex)
No recorded A-fib on monitoring.
Currently off anticoagulation
History of CVA with residual weakness and ambulatory dysfunction.
Continue Plavix per
Continue statin
Hemoglobin A1c 5.5
Acute kidney injury
resolved
Suspect cardiorenal state
Monitor renal function with diuresis per
Consider nephrology evaluation.
Avoid NSAIDs
Hypothyroidism on replacement
TSH 0.91
Gout
Continue colchicine/allopurinol
Bipolar disorder
Continue Depakote with caution for oversedation.
Check Depakote level.
Continue meloxicam
Chronic pain.
Hold Lyrica given oversedation
Anticipated Discharge: Within 24 hours
Subjective/Interval History
-
Date of Service: January 29, 2024
Objective Data
-
Labs:
Laboratory Results
01/29/24
07:35
WBC 9.7
Hgb 10.3 L
Hct 31.3 L
Plt Count 221
Sodium 145
Potassium 3.7
Chloride 104
Carbon Dioxide 32 H
BUN 27 H
Creatinine 0.8
Glucose 98
Calcium 8.8
Vital Signs:
Vital Signs
Temp Pulse Resp BP Pulse Ox
98.5 F 84 17 137/81 96
01/29/24 07:56 01/29/24 07:56 01/29/24 07:56 01/29/24 07:56 01/29/24 08:38
I&O
01/28/24 01/29/24 01/30/24
06:59 06:59 06:59
Intake Total 1200 / 1200 240 / 240
Balance 1200 / 1200 240 / 240
Physical Exam
-
General: Well Developed and No Apparent Distress
HEENT: Normocephalic, Atraumatic and Moist Mucous Membranes
Respiratory: Clear to Auscultation
Cardiac: Regular Rhythm and S1/S2; Negative Murmur, Rub or Gallop
GI: Soft, Nontender, Nondistended and Normal Bowel Sounds; Negative Organomegaly
Rectal: Deferred by Provider
Musculoskeletal: No Clubbing, No Cyanosis and No Edema
Skin: Negative Rash
Neuro: Awake, Alert, Oriented and Nonfocal/Grossly Intact
[2024-01-29] MEDS: BUMEX PO (21:13)
[2024-01-29] MEDS: VIBRAMYCIN PO (21:14)
[2024-01-29] MEDS: VITAMIN C PO (22:09)
[2024-01-29] MEDS: MELATONIN PO (22:09)
[2024-01-29] MEDS: LIPITOR PO (22:09)
[2024-01-29] MEDS: XALATAN OPHTHALMIC SOLUTION BOTH EYES (22:10)
[2024-01-29 23:47] VITALS: BP 145/82
--- NOTE | 2024-01-30 03:44 | PTCARENOTE ---
Patient refused all medications this shift despite multiple attempts from different staff members. Patient states' you are all conspiring against me and I shouldn't be here. You probably have the wrong patient number and took me instead!' Patient
also refusing all care despite multiple attempts. photographic reproduction technician KHRIS made aware.
[2024-01-30 06:00] VITALS: BMI 50.2
[2024-01-30] MEDS: SYNTHROID PO (06:33)
[2024-01-30 07:40] VITALS: BP 155/88
[2024-01-30] MEDS: LIDOCAINE 4% PATCH TOPICAL ×2 (08:23→08:45)
[2024-01-30] MEDS: EFFEXOR XR PO ×4 (08:24→11:01)
[2024-01-30] MEDS: ZYLOPRIM PO ×4 (08:24→11:03)
[2024-01-30] MEDS: PROTONIX PO ×2 (08:24→11:02)
[2024-01-30] MEDS: DETROL LA PO ×2 (08:24→11:01)
[2024-01-30] MEDS: TOPROL XL PO ×2 (08:24→11:03)
[2024-01-30] MEDS: B COMPLEX w/VITAMIN C PO ×2 (08:24→11:00)
[2024-01-30] MEDS: DRISDOL (VITAMIN D2) 50000 UNITS PO (08:24)
[2024-01-30] MEDS: CLARITIN PO ×2 (08:24→11:01)
[2024-01-30] MEDS: BUMEX PO ×2 (08:25→10:57)
[2024-01-30] MEDS: VIBRAMYCIN PO ×2 (08:25→11:03)
[2024-01-30] MEDS: SENOKOT PO ×2 (08:25→11:02)
[2024-01-30] MEDS: HIPREX PO ×2 (08:26→11:02)
[2024-01-30] MEDS: COLCHICINE PO ×2 (08:26→11:01)
[2024-01-30] MEDS: PLAVIX PO ×2 (08:26→11:02)
[2024-01-30] MEDS: FLEXERIL PO ×2 (08:26→11:02)
[2024-01-30] MEDS: HEPARIN SC ×4 (08:27→21:45)
[2024-01-30] MEDS: DEPAKOTE (12 HR RELEASE) PO ×4 (08:27→11:01)
[2024-01-30] MEDS: REFRESH EYE DROPS (PF) 1 DROPS BOTH EYES (08:27)
[2024-01-30] MEDS: DESENEX/MITRAZOL/ZEASORB 1 APPLIC TOPICAL (08:28)
[2024-01-30] MEDS: STERILE WATER FOR INJECTION IV ×3 (08:44→21:46)
[2024-01-30] MEDS: EYE RIGHT EYE (08:44)
[2024-01-30] MEDS: VOLTAREN RIGHT EYE (08:44)
--- NOTE | 2024-01-30 11:00 | PTCARENOTE ---
pt is not being cooperative at all today. principal technical writer attempted to give her am medication multiple times this morning and she continues to refuse. she is not eating breakfast and is not answering any orientation questions. she is sitting in bed with a
pillow in front of her face. she knocked the meds out of writers hand when attempted to give her medications. MD aware of refusing meds and behaviors
--- NOTE | 2024-01-30 15:17 | CM ---
CM reviewed chart, discussed with Hospitalist, facility requesting psych consult, ordered placed. CM will continue to update patients LTC facility on patient status. CM will continue to follow for all discharge planning needs.
Plan; return to [facility] when medically stable.
Report: [phone]
--- NOTE | 2024-01-30 16:05 | W.PN.HOSP.TC ---
Today's Communication/Plan
-
Medically optimized.
Mental status close to baseline in patient with chronic psychiatric condition/bipolar disorder as well as dementia.
While patient refusing medications, she has no evidence of psychosis.
Continue Depakote
Psychiatry evaluation
Consider low-dose of Risperdal
Assessment / Plan
Assessment / Plan
Impression:
Toxic metabolic encephalopathy likely multifactorial due to fever/lower extremity cellulitis, hypoxemia.
Acute hypoxic respiratory insufficiency likely multifactorial due to below
Acute CHF exacerbation preserved EF
Acute pulmonary edema
Acute kidney injury suspect cardiorenal state.
Clinical sepsis/SIRS (fever, hypotension, altered mental status)
Bilateral acute on chronic lower extremity cellulitis complicated with venous stasis and peripheral edema.
Hypokalemia
Other conditions:
History of CVA with residual right-sided weakness
Essential hypertension.
Paroxysmal atrial fibrillation status post ablation.
Essential hypertension.
Dyslipidemia
Hypothyroidism
GERD.
Bipolar disorder
Insomnia
Gout
Morbid obesity due to excessive calories BMI 55.
Sleep apnea.
PAD by history.
UTI.
Multiple antibiotic allergies
Plan:
Clinical sepsis shortly after presentation on 01/23 including altered mental status, fever, persistent hypotension not responding to IV fluid bolus requiring pressors
Possible sources pulmonary, versus urinary, versus bilateral lower extremity cellulitis
Sepsis shock with hypotension responding to IV fluids. Eventually had not required pressors.
Observe off IV fluids.
Blood cultures negative to date.
Urine culture with E. coli
Lower extremity cellulitis, bilateral, complicated with chronic venous stasis and peripheral edema.
Right lower extremity/calf superficial wound with no evidence of infection.
Doppler negative for DVT
Consolidate antibiotics to oral doxycycline
Toxic metabolic encephalopathy likely multifactorial due to fever/lower extremity cellulitis, hypoxemia.
No focal findings on neurologic exam.
Mental status improved back to baseline
Please hold sedatives including Lyrica.
Okay to continue Depakote
Mental status back to baseline
Acute CHF exacerbation preserved EF.
Exam with acute on chronic peripheral edema
Chest x-ray consistent with pulmonary edema.
Echocardiogram 01/23: Preserved biventricular size and systolic function. Mild TR. PA pressure 35 to 40 mmHg
Responding to diuresis.
Respiratory status stable
Transition off IV Lasix to Bumex 1.5 mg twice daily
Acute hypoxic respiratory insufficiency likely multifactorial.
Respiratory status improved and weaned off oxygen
Continue IV diuresis pain
Lower extremity Doppler negative for DVT.
D-dimer normal.
Low clinical suspicion for thromboembolic disease.
Continue DVT prophylaxis
Obstructive sleep apnea plan
ABG on admission: pH 7.5 on room air
Noted with chronic compensatory metabolic alkalosis
Continue CPAP at night.
Paroxysmal atrial fibrillation by history, remote
Patient reports ablation and loop recorder placed at [facility].
ECG on admission sinus tach.
Continue metoprolol
Patient is not on anticoagulation prior to presentation.
Obtain medical records.
CV score 7 (CHF, hypertension, history of CVA, vascular disease, age, sex)
No recorded A-fib on monitoring.
Currently off anticoagulation
History of CVA with residual weakness and ambulatory dysfunction.
Continue Plavix per
Continue statin
Hemoglobin A1c 5.5
Acute kidney injury
resolved
Suspect cardiorenal state
Monitor renal function with diuresis per
Consider nephrology evaluation.
Avoid NSAIDs
Hypothyroidism on replacement
TSH 0.91
Gout
Continue colchicine/allopurinol
Bipolar disorder
Continue Depakote with caution for oversedation.
Check Depakote level.
Continue meloxicam
Chronic pain.
Hold Lyrica given oversedation
Anticipated Discharge: 24 - 48 hours
Subjective/Interval History
-
Date of Service: January 30, 2024
Objective Data
-
Vital Signs:
Vital Signs
Temp Pulse Resp BP Pulse Ox
99.5 F 97 17 155/88 93
01/30/24 07:40 01/30/24 07:40 01/30/24 07:40 01/30/24 07:40 01/30/24 07:40
I&O
01/29/24 01/30/24 01/31/24
06:59 06:59 06:59
Intake Total 240 / 240 720 / 720
Balance 240 / 240 720 / 720
Physical Exam
-
General: Well Developed and No Apparent Distress
HEENT: Normocephalic, Atraumatic and Moist Mucous Membranes
Respiratory: Clear to Auscultation
Cardiac: Regular Rhythm and S1/S2; Negative Murmur, Rub or Gallop
GI: Soft, Nontender, Nondistended and Normal Bowel Sounds; Negative Organomegaly
Rectal: Deferred by Provider
Musculoskeletal: No Clubbing, No Cyanosis and No Edema
Skin: Negative Rash
Neuro: Nonfocal/Grossly Intact
[2024-01-30] MEDS: REFRESH EYE DROPS (PF) BOTH EYES ×3 (16:56→21:45)
[2024-01-30] MEDS: BUMEX 1.5 MG PO (21:38)
[2024-01-30] MEDS: DEPAKOTE (12 HR RELEASE) 125 MG PO (21:38)
[2024-01-30] MEDS: HIPREX 1 GRAM PO (21:38)
[2024-01-30] MEDS: MELATONIN 10 MG PO (21:38)
[2024-01-30] MEDS: FLEXERIL 5 MG PO (21:38)
[2024-01-30] MEDS: VIBRAMYCIN 100 MG PO (21:39)
[2024-01-30] MEDS: VITAMIN C 500 MG PO (21:39)
[2024-01-30] MEDS: DEPAKOTE (12 HR RELEASE) 500 MG PO (21:39)
[2024-01-30] MEDS: LIPITOR 40 MG PO (21:39)
[2024-01-30] MEDS: SENOKOT 8.6 MG PO (21:39)
[2024-01-30] MEDS: DESENEX/MITRAZOL/ZEASORB TOPICAL (21:44)
[2024-01-30] MEDS: XALATAN OPHTHALMIC SOLUTION BOTH EYES (21:45)
[2024-01-30 23:48] VITALS: BP 145/90
[2024-01-31 04:39] VITALS: BMI 47.9
--- NOTE | 2024-01-31 05:54 | DOWNTIME ---
There was a [employer] Supervisor Downtime on 01/31/2024 from 0100 to 01/31/2024 at 0355. Downtime documentation of patient's care, including medication administrations, has been reconciled in the electronic record per guidelines. Refer to the
patient's paper chart under the miscellaneous tab to see printed paper medication records and downtime forms.
[2024-01-31] MEDS: SYNTHROID PO (06:44)
[2024-01-31 07:35] VITALS: BP 151/96
[2024-01-31 11:00] VITALS: BP 161/98
[2024-01-31] MEDS: B COMPLEX w/VITAMIN C PO (11:04)
[2024-01-31] MEDS: CLARITIN PO (11:05)
[2024-01-31] MEDS: BUMEX PO (11:05)
[2024-01-31] MEDS: COLCHICINE PO (11:05)
[2024-01-31] MEDS: DETROL LA PO (11:06)
[2024-01-31] MEDS: FLEXERIL PO (11:06)
[2024-01-31] MEDS: HEPARIN SC ×3 (11:06→19:44)
[2024-01-31] MEDS: EFFEXOR XR PO ×2 (11:06)
[2024-01-31] MEDS: DEPAKOTE (12 HR RELEASE) PO ×2 (11:06)
[2024-01-31] MEDS: DESENEX/MITRAZOL/ZEASORB TOPICAL ×2 (11:06→19:43)
[2024-01-31] MEDS: LIDOCAINE 4% PATCH TOPICAL (11:07)
[2024-01-31] MEDS: SENOKOT PO (11:07)
[2024-01-31] MEDS: REFRESH EYE DROPS (PF) BOTH EYES ×3 (11:07→19:44)
[2024-01-31] MEDS: PROTONIX PO (11:07)
[2024-01-31] MEDS: TOPROL XL PO (11:07)
[2024-01-31] MEDS: VIBRAMYCIN PO (11:07)
[2024-01-31] MEDS: PLAVIX PO (11:07)
[2024-01-31] MEDS: HIPREX PO ×2 (11:07→20:01)
[2024-01-31] MEDS: ZYLOPRIM PO ×2 (11:08)
[2024-01-31] MEDS: VOLTAREN RIGHT EYE (11:08)
[2024-01-31] MEDS: EYE RIGHT EYE (11:08)
--- NOTE | 2024-01-31 12:50 | CON.MD ---
Consultation - Medical
-
patient seen chart reviewed. discussed with nursing. the patient is a 69 year old woman with a hx of bipolar brought to from [facility] for 'fatigue and sleeplessness'. patient had a complicated course having been found to be hypoxemic and in
chf. she was found to be septic w cellulitis. she was at one point tf to icu but is now back on the floor. she has not been eating. she has been refusing all meds. she pulled out her iv and at one point absconded to the stairwell. she is intensely
paranoid. she told me that there were three people 'nurse mara, her roommate ruddy, nurse mara' and an aide at [facility] who conspired to get her removed from [facility] where she said she was happy. throughout our discussion she
kept asking me about what she was hearing 'they are laughing at me in the [place]'. when a door closed she was suspicious. of an iv she said 'so they can just kill me'. she does admit she has a psych hx and takes depakote for her mood and effexor for
depression. she denies hearing things but clearly has paranoid delusions and ideas of reference. she said [facility]. her [facility] was good [facility] but here is fearful she is being poisoned. she denies suicidal thoughts. she does
admit she has medical illnesses but fears taking meds bc the pills are not labeled as they are at the retirement. spoke with adán who reported the the anger aggression paranoia is all new. she says once in a while d will express that she feels
'slighted' d told me her mother called her to tell her people were trying to kidnap her. adán says this happened in the past when she had a uti.
past psych hx asked d about her psych illness. patient dx bipolar 30 years ago and was on depakote for a long time. (15 plus years) d does not recall any meds except depakote and an antidepressant. patient was never hospitalized. when she was dx
bipolar 'she had a breakdown at work'. adán says mom has good cognitive functioning overall but processes more slowly.
substance abuse none
fh non contributory
medical hx: see above patient with chf sepsis cellulitis hypoxemia resolving hx htn hld c/p cva a fib hypothyfoid w nl tsh hx migraine gout renal calculi tremor marcus pvd obesity chronic edema
social patient has one d. lives at [facility] for the past four years. d reports patient did just get a new roommate [facility]. her roommate who was a big part of her life for two plus years recently . patient is . she had many
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
mse alert ox3 cooperative more or less. speech nl rate and tone. to some extent goal oriented but perseverative on the theme of being in danger. denies hallucinations. no suicidal. mood is suspicious affect constricted intelligence average
insight judgment lacking
dx unspecified psychosis in the context of medical illness (?tme) and bipolar disorder
recommendations reassured patient NO ONE wants to harm her here. explained that what she hears in the hallway is NOT necessarily about her and told her how many patients are on the floor. she did allow me to order lunch that she chose. patient did
agree to an iv which was placed. she wants to be told medications she is taking and shown the labels. changed depakote to iv.. ordered haldol 2 mg iv. explained medications to daughter. spoke with dr mcgowan to minimize po meds given how hard it
is to get her to take them. she asked for readers which i will get her from volunteer office. check b12 and folate psych will follow
--- NOTE | 2024-01-31 14:00 | PTCARENOTE ---
patient did not take any medication today. Dr Banegas and Dr Chang aware. pt continues to refuse all meals and offered hygiene as well. pt had IV placed earlier today and was agreeable to take medication, but shortly after receiving IV, pt pulled
IV out and refused any medicine. pt presents extremely paranoid and agitated. teletypewriter operator made multiple attempts to give meds today
[2024-01-31 15:31] VITALS: BP 142/88
--- NOTE | 2024-01-31 16:12 | W.PN.UPDATE ---
Update Note
Progress Note Update
returned to see patient. she had pulled out her iv earlier. she was sleeping. i tried to wake her especially to show her her new readers(!) but was not successful. i am reluctant to order im meds. she is a big woman and to hold her down against her
will ...not clear this is the best route. will order haldol concentrate at [facility]. if she refuses and is calm so be it for tonite. will talk to dr mcgowan. i had asked him to simplify med regimen. another thought would patient respond to daughter
trying to reason with her. i will call daughter tomorrow am
--- NOTE | 2024-01-31 16:33 | W.PN.HOSP.TC ---
Today's Communication/Plan
-
Psychiatric input appreciated.
IV Depakote/Haldol
Simplify medication regimen to avoid nonessential medications (patient had been delusional and paranoid with medication intake)
Assessment / Plan
Assessment / Plan
Impression:
Toxic metabolic encephalopathy likely multifactorial due to fever/lower extremity cellulitis, hypoxemia.
Acute hypoxic respiratory insufficiency likely multifactorial due to below
Acute CHF exacerbation preserved EF
Acute pulmonary edema
Acute kidney injury suspect cardiorenal state.
Clinical sepsis/SIRS (fever, hypotension, altered mental status)
Bilateral acute on chronic lower extremity cellulitis complicated with venous stasis and peripheral edema.
Hypokalemia
Acute psychosis/delusional state in the settings of acute medical illness.
Other conditions:
History of CVA with residual right-sided weakness
Essential hypertension.
Paroxysmal atrial fibrillation status post ablation.
Essential hypertension.
Dyslipidemia
Hypothyroidism
GERD.
Bipolar disorder
Insomnia
Gout
Morbid obesity due to excessive calories BMI 55.
Sleep apnea.
PAD by history.
UTI.
Multiple antibiotic allergies
Plan:
Clinical sepsis shortly after presentation on 01/23 including altered mental status, fever, persistent hypotension not responding to IV fluid bolus requiring pressors
Possible sources pulmonary, versus urinary, versus bilateral lower extremity cellulitis
Sepsis shock with hypotension responding to IV fluids. Eventually had not required pressors.
Observe off IV fluids.
Blood cultures negative to date.
Urine culture with E. coli
Lower extremity cellulitis, bilateral, complicated with chronic venous stasis and peripheral edema.
Right lower extremity/calf superficial wound with no evidence of infection.
Doppler negative for DVT
Consolidate antibiotics to oral doxycycline
Toxic metabolic encephalopathy likely multifactorial due to fever/lower extremity cellulitis, hypoxemia.
Involved with acute psychosis with delusional state in the settings of acute medical illness.
Psychiatry input appreciated.
Transition to IV Depakote with addition of Haldol.
Patient with paranoid ideation declining medication administration.
Will attempt to simplify medication regimen discontinuing nonessential medications.
Acute CHF exacerbation preserved EF.
Exam with acute on chronic peripheral edema
Chest x-ray consistent with pulmonary edema.
Echocardiogram 01/23: Preserved biventricular size and systolic function. Mild TR. PA pressure 35 to 40 mmHg
Responding to diuresis.
Respiratory status stable
Transitioned off IV Lasix to Bumex 1.5 mg twice daily
Acute hypoxic respiratory insufficiency likely multifactorial.
Respiratory status improved and weaned off oxygen
Continue IV diuresis pain
Lower extremity Doppler negative for DVT.
D-dimer normal.
Low clinical suspicion for thromboembolic disease.
Continue DVT prophylaxis
Obstructive sleep apnea plan
ABG on admission: pH 7.5 on room air
Noted with chronic compensatory metabolic alkalosis
Continue CPAP at night.
Paroxysmal atrial fibrillation by history, remote
Patient reports ablation and loop recorder placed at [facility].
ECG on admission sinus tach.
Continue metoprolol
Patient is not on anticoagulation prior to presentation.
Obtain medical records.
CV score 7 (CHF, hypertension, history of CVA, vascular disease, age, sex)
No recorded A-fib on monitoring.
Currently off anticoagulation
History of CVA with residual weakness and ambulatory dysfunction.
Continue Plavix per
Continue statin
Hemoglobin A1c 5.5
Acute kidney injury
resolved
Suspect cardiorenal state
Monitor renal function with diuresis per
Consider nephrology evaluation.
Avoid NSAIDs
Hypothyroidism on replacement
TSH 0.91
Gout
Continue colchicine/allopurinol
Bipolar disorder
Continue Depakote with caution for oversedation.
Check Depakote level.
Continue meloxicam
Chronic pain.
Hold Lyrica given oversedation
Anticipated Discharge: > 48 hours
Subjective/Interval History
-
Date of Service: January 31, 2024
Objective Data
-
Vital Signs:
Vital Signs
Temp Pulse Resp BP Pulse Ox
98.5 F 91 18 142/88 99
01/31/24 15:31 01/31/24 15:31 01/31/24 15:31 01/31/24 15:31 01/31/24 15:31
I&O
01/30/24 01/31/24 02/01/24
06:59 06:59 06:59
Intake Total 720 / 720
Balance 720 / 720
Physical Exam
-
General: Well Developed and No Apparent Distress
HEENT: Normocephalic, Atraumatic and Moist Mucous Membranes
Respiratory: Clear to Auscultation
Cardiac: Regular Rhythm and S1/S2; Negative Murmur, Rub or Gallop
GI: Soft, Nontender, Nondistended and Normal Bowel Sounds; Negative Organomegaly
Rectal: Deferred by Provider
Musculoskeletal: No Clubbing, No Cyanosis and No Edema
Skin: Negative Rash
Neuro: Nonfocal/Grossly Intact
[2024-01-31] MEDS: SENOKOT 8.6 MG PO (19:42)
[2024-01-31] MEDS: VIBRAMYCIN 100 MG PO (19:42)
[2024-01-31] MEDS: LIPITOR 40 MG PO (19:42)
[2024-01-31] MEDS: BUMEX 1.5 MG PO (19:42)
[2024-01-31] MEDS: HALDOL 2 MG PO (19:43)
[2024-01-31] MEDS: XALATAN OPHTHALMIC SOLUTION BOTH EYES (19:44)
[2024-01-31 23:30] VITALS: BP 154/95
[2024-02-01 05:16] VITALS: BMI 47.9
[2024-02-01] MEDS: SYNTHROID 50 MCG PO (06:07)
[2024-02-01 07:46] VITALS: BP 154/81
[2024-02-01 08:56] LABS: Folate > 20.0 ng/ml (2.76-20); Vitamin B12 > 1000 pg/ml (239-931)
[2024-02-01] MEDS: BUMEX PO ×2 (10:30→10:33)
[2024-02-01] MEDS: EFFEXOR XR PO (10:33)
[2024-02-01] MEDS: DETROL LA PO (10:33)
[2024-02-01] MEDS: DESENEX/MITRAZOL/ZEASORB TOPICAL (10:33)
[2024-02-01] MEDS: COLCHICINE PO (10:33)
[2024-02-01] MEDS: EYE RIGHT EYE (10:34)
[2024-02-01] MEDS: HIPREX PO (10:34)
[2024-02-01] MEDS: VIBRAMYCIN PO (10:34)
[2024-02-01] MEDS: PROTONIX PO (10:34)
[2024-02-01] MEDS: LIDOCAINE 4% PATCH TOPICAL (10:34)
[2024-02-01] MEDS: VOLTAREN RIGHT EYE (10:34)
[2024-02-01] MEDS: ZYLOPRIM PO (10:34)
[2024-02-01] MEDS: TOPROL XL PO (10:34)
[2024-02-01] MEDS: HEPARIN SC ×2 (10:34→14:26)
[2024-02-01] MEDS: PLAVIX PO (10:34)
[2024-02-01] MEDS: REFRESH EYE DROPS (PF) BOTH EYES ×3 (10:34→14:38)
[2024-02-01] MEDS: SENOKOT PO (10:34)
--- NOTE | 2024-02-01 14:11 | W.PN.UPDATE ---
Update Note
Progress Note Update
patient seen chart reviewed. the patient did listen to my explanation that NO ONE wants to harm her and that we are trying actually to help her. i presented to her that the notion of others wanting to harm her is all in her mind and does not
represent reality. she hears things outside the room for example an elderly man in a nearby room and interprets this nefariously. again explained to her that there are sick people here that may cry out and while it may be annoying it does not
represent a danger to her. she did agree to take all of her meds and i asked [facility] to prepare them and i will try to get her to take them. have dc'ed the im haldol. at this point i think it would do more harm than good to give her an injection not to
mention that it would hurt and changed hs haldol to po. (she did take it last night) also stopped iv depakote. if we can get her to take the po haldol that should help in itself with psychosis. will continue to follow
[2024-02-01] MEDS: ZYLOPRIM 300 MG PO (14:25)
[2024-02-01] MEDS: TOPROL XL 25 MG PO (14:25)
[2024-02-01] MEDS: COLCHICINE 0.6 MG PO (14:25)
[2024-02-01] MEDS: EFFEXOR XR 150 MG PO (14:25)
[2024-02-01] MEDS: PLAVIX 75 MG PO (14:25)
[2024-02-01] MEDS: HALDOL 2 MG PO (14:25)
[2024-02-01] MEDS: DETROL LA 4 MG PO (14:26)
[2024-02-01] MEDS: PROTONIX 20 MG PO (14:26)
[2024-02-01] MEDS: HIPREX 1 GRAM PO ×2 (14:26→20:23)
[2024-02-01] MEDS: XALATAN OPHTHALMIC SOLUTION 1 DROP BOTH EYES (14:28)
--- NOTE | 2024-02-01 15:35 | W.PN.HOSP.TC ---
Today's Communication/Plan
-
Continue doxycycline for another 24 hours.
Mental status/paranoia improves with Haldol. Patient accepting medications and treatment.
Supportive care.
Assessment / Plan
Assessment / Plan
Impression:
Toxic metabolic encephalopathy likely multifactorial due to fever/lower extremity cellulitis, hypoxemia.
Acute hypoxic respiratory insufficiency likely multifactorial due to below
Acute CHF exacerbation preserved EF
Acute pulmonary edema
Acute kidney injury suspect cardiorenal state.
Clinical sepsis/SIRS (fever, hypotension, altered mental status)
Bilateral acute on chronic lower extremity cellulitis complicated with venous stasis and peripheral edema.
Hypokalemia
Acute psychosis/delusional state in the settings of acute medical illness.
Other conditions:
History of CVA with residual right-sided weakness
Essential hypertension.
Paroxysmal atrial fibrillation status post ablation.
Essential hypertension.
Dyslipidemia
Hypothyroidism
GERD.
Bipolar disorder
Insomnia
Gout
Morbid obesity due to excessive calories BMI 55.
Sleep apnea.
PAD by history.
UTI.
Multiple antibiotic allergies
Plan:
Clinical sepsis shortly after presentation on 01/23 including altered mental status, fever, persistent hypotension not responding to IV fluid bolus requiring pressors
Possible sources pulmonary, versus urinary, versus bilateral lower extremity cellulitis
Sepsis shock with hypotension responding to IV fluids. Eventually had not required pressors.
Observe off IV fluids.
Blood cultures negative to date.
Urine culture with E. coli
Lower extremity cellulitis, bilateral, complicated with chronic venous stasis and peripheral edema.
Right lower extremity/calf superficial wound with no evidence of infection.
Doppler negative for DVT
Consolidate antibiotics to oral doxycycline
Toxic metabolic encephalopathy likely multifactorial due to fever/lower extremity cellulitis, hypoxemia.
Involved with acute psychosis with delusional state in the settings of acute medical illness.
Psychiatry input appreciated.
Responding to Haldol
Patient with paranoid ideation declining medication administration.
Will attempt to simplify medication regimen discontinuing nonessential medications.
Acute CHF exacerbation preserved EF.
Exam with acute on chronic peripheral edema
Chest x-ray consistent with pulmonary edema.
Echocardiogram 01/23: Preserved biventricular size and systolic function. Mild TR. PA pressure 35 to 40 mmHg
Responding to diuresis.
Respiratory status stable
Transitioned off IV Lasix to Bumex 1.5 mg twice daily
Acute hypoxic respiratory insufficiency likely multifactorial.
Respiratory status improved and weaned off oxygen
Continue IV diuresis pain
Lower extremity Doppler negative for DVT.
D-dimer normal.
Low clinical suspicion for thromboembolic disease.
Continue DVT prophylaxis
Obstructive sleep apnea plan
ABG on admission: pH 7.5 on room air
Noted with chronic compensatory metabolic alkalosis
Continue CPAP at night.
Paroxysmal atrial fibrillation by history, remote
Patient reports ablation and loop recorder placed at [facility].
ECG on admission sinus tach.
Continue metoprolol
Patient is not on anticoagulation prior to presentation.
Obtain medical records.
CV score 7 (CHF, hypertension, history of CVA, vascular disease, age, sex)
No recorded A-fib on monitoring.
Currently off anticoagulation
History of CVA with residual weakness and ambulatory dysfunction.
Continue Plavix per
Continue statin
Hemoglobin A1c 5.5
Acute kidney injury
resolved
Suspect cardiorenal state
Monitor renal function with diuresis per
Consider nephrology evaluation.
Avoid NSAIDs
Hypothyroidism on replacement
TSH 0.91
Gout
Continue colchicine/allopurinol
Bipolar disorder
Continue Depakote with caution for oversedation.
Check Depakote level.
Continue meloxicam
Chronic pain.
Hold Lyrica given oversedation
Anticipated Discharge: 24 - 48 hours
Subjective/Interval History
-
Date of Service: February 01, 2024
Objective Data
-
Vital Signs:
Vital Signs
Temp Pulse Resp BP Pulse Ox
98.2 F 96 17 154/81 99
02/01/24 07:46 02/01/24 07:46 02/01/24 07:46 02/01/24 07:46 02/01/24 08:00
Physical Exam
-
General: Well Developed and No Apparent Distress
HEENT: Normocephalic, Atraumatic and Moist Mucous Membranes
Respiratory: Clear to Auscultation
Cardiac: Regular Rhythm and S1/S2; Negative Murmur, Rub or Gallop
GI: Soft, Nontender, Nondistended and Normal Bowel Sounds; Negative Organomegaly
Rectal: Deferred by Provider
Musculoskeletal: No Clubbing, No Cyanosis and No Edema
Skin: Negative Rash
Neuro: Nonfocal/Grossly Intact
--- NOTE | 2024-02-01 15:37 | PTCARENOTE ---
Patient refusing to take medications and refusing all care from this RN in the morning. With Dr. Chang at bedside in the afternoon, patient agreeable to take medications and participate in care. Ensured patient that we have no harmful intentions
and are trying to take care of her. Plan of care ongoing.
--- NOTE | 2024-02-01 15:47 | CM ---
CM reviewed chart, met with patient bedside. Patient reports she is feeling okay today, reports no needs to CM. Psych following. CM will continue to follow for all discharge planning needs.
Plan; return to [facility] when medically stable.
Report: [phone]
[2024-02-01] MEDS: HEPARIN 5000 UNITS SC (15:51)
[2024-02-01 15:52] VITALS: BP 132/80
[2024-02-01] MEDS: VIBRAMYCIN 100 MG PO (20:21)
[2024-02-01] MEDS: BUMEX 1.5 MG PO (20:21)
[2024-02-01] MEDS: SENOKOT 8.6 MG PO (20:21)
[2024-02-01] MEDS: REFRESH EYE DROPS (PF) 1 DROPS BOTH EYES (20:23)
[2024-02-01] MEDS: LIPITOR 40 MG PO (20:23)
[2024-02-01] MEDS: DESENEX/MITRAZOL/ZEASORB 1 APPLIC TOPICAL (20:24)
[2024-02-01] MEDS: TYLENOL 650 MG PO (20:26)
[2024-02-01 23:30] VITALS: BP 143/73
[2024-02-02] MEDS: HEPARIN SC (00:46)
[2024-02-02] MEDS: SYNTHROID 50 MCG PO (05:44)
[2024-02-02 06:00] VITALS: BMI 47.7
[2024-02-02 08:00] VITALS: BP 134/74
[2024-02-02] MEDS: BUMEX 1.5 MG PO (08:03)
[2024-02-02] MEDS: PROTONIX 20 MG PO (08:04)
[2024-02-02] MEDS: TOPROL XL 25 MG PO (08:04)
[2024-02-02] MEDS: REFRESH EYE DROPS (PF) 1 DROPS BOTH EYES ×2 (08:04→15:33)
[2024-02-02] MEDS: COLCHICINE 0.6 MG PO (08:04)
[2024-02-02] MEDS: ZYLOPRIM 300 MG PO (08:04)
[2024-02-02] MEDS: DETROL LA 4 MG PO (08:04)
[2024-02-02] MEDS: HALDOL 2 MG PO (08:04)
[2024-02-02] MEDS: SENOKOT 8.6 MG PO (08:04)
[2024-02-02] MEDS: VIBRAMYCIN 100 MG PO (08:04)
[2024-02-02] MEDS: HIPREX 1 GRAM PO (08:04)
[2024-02-02] MEDS: PLAVIX 75 MG PO (08:05)
[2024-02-02] MEDS: HEPARIN 5000 UNITS SC ×2 (08:05→15:33)
[2024-02-02] MEDS: LIDOCAINE 4% PATCH TOPICAL (08:05)
[2024-02-02] MEDS: EFFEXOR XR 150 MG PO (08:05)
[2024-02-02] MEDS: DESENEX/MITRAZOL/ZEASORB 1 APPLIC TOPICAL (08:06)
[2024-02-02] MEDS: VOLTAREN RIGHT EYE (09:33)
[2024-02-02] MEDS: EYE RIGHT EYE (09:33)
--- NOTE | 2024-02-02 12:10 | W.PN.UPDATE ---
Update Note
Progress Note Update
patient seen chart reviewed. discussed with nursing patient is MARKEDLY improved. she was very pleasant and was able to hold what i would consider to be a normal conversation. she said she felt better now that she was taking her medications again.
she was very good actually at engaging in small talk. she told me about her life growing up in [place]. she had visited many of the famous [employer] and [employer]. we talked about climate change. she is actually happy with the possiblity of
returning to [facility] later today. cm is talking to [facility] about the possibility of her return later in the day. no changes made in her medications. the haldol seems to have helped considerably. psych will sign off.
--- NOTE | 2024-02-02 12:58 | W.DS.TRANS ---
DC Summary - [employer]
-
Discharge Instructions:
Discharge Diagnosis/Procedures Impression:
Toxic metabolic encephalopathy likely
multifactorial due to fever/lower extremity
cellulitis, hypoxemia.
Acute hypoxic respiratory insufficiency likely
multifactorial due to below
Acute CHF exacerbation preserved EF
Acute pulmonary edema
Acute kidney injury suspect cardiorenal state.
Clinical sepsis/SIRS (fever, hypotension,
altered mental status)
Bilateral acute on chronic lower extremity
cellulitis complicated with venous stasis and
peripheral edema.
Hypokalemia
Psychosis
Other conditions:
History of CVA with residual right-sided
weakness
Essential hypertension.
Paroxysmal atrial fibrillation status post
ablation.
Essential hypertension.
Dyslipidemia
Hypothyroidism
GERD.
Bipolar disorder
Insomnia
Gout
Morbid obesity due to excessive calories BMI 55.
Sleep apnea.
PAD by history.
UTI.
Multiple antibiotic allergies
Instructions:
Stand-Alone Forms:
Changes to Home Medications: Yes
Discharge Medications:
DC Medications w/original date entered in [facility]
clopidogrel 75 mg tablet 75 mg PO DAILY Blood Clot Prevention/Tx 02/25/21
levothyroxine 50 mcg tablet 50 mcg PO DAILY Thyroid 02/25/21
loratadine 10 mg tablet 10 mg PO DAILY Allergies 02/25/21
magnesium hydroxide 400 mg/5 mL oral suspension 30 ml PO DAILYPRN PRN if no bm x 3 days 02/25/21
venlafaxine 150 mg capsule,extended release 24 hr (Effexor XR) 150 mg PO DAILY Mental Health/Anxiety 02/25/21
allopurinol 100 mg tablet 100 mg PO DAILY Gout ##0 02/16/22
colchicine 0.6 mg capsule 0.6 mg PO DAILY Gout 02/16/22
ergocalciferol (vitamin D2) 1,250 mcg (50,000 unit) capsule (Drisdol) 1,250 mcg PO WEEKLY Supplement ##0 02/16/22
estradiol 0.01% (0.1 mg/gram) vaginal cream 1 appful vaginal MOWEFR Hormonal Agent ##0 02/16/22
loperamide 2 mg tablet (Imodium A-D) 2 mg PO PRN PRN diarrhea 02/17/22
metoprolol succinate 25 mg tablet,extended release 24 hr 25 mg PO DAILY Blood Pressure 02/17/22
acetaminophen 325 mg tablet 650 mg PO Q4HPRN PRN mild pain/temp>100 01/23/24
allopurinol 300 mg tablet 300 mg PO DAILY Gout 01/23/24
ascorbic acid (vitamin C) 500 mg tablet (Vitamin C) 500 mg PO HS Supplement 01/23/24
atorvastatin 40 mg tablet 40 mg PO HS High Cholesterol 01/23/24
bisacodyl 10 mg rectal suppository (Dulcolax (bisacodyl)) 10 mg [place] DAILYPRN PRN if mom is ineffective after 24hrs 01/23/24
bumetanide 1 mg tablet 1 mg PO HS Fluid Retention/Swelling 01/23/24
clobetasol 0.05 % topical cream 1 applic topical [id number] PRN rash on abdominal,groin area 01/23/24
cranberry extract 200 mg capsule (Ellura) 200 mg PO DAILY Supplement 01/23/24
cyclobenzaprine 5 mg tablet 5 mg PO BID Muscle Spasms 01/23/24
diclofenac sodium 0.1 % eye drops 1 drp RIGHT EYE DAILY Eye Condition 01/23/24
divalproex 125 mg tablet,delayed release 125 mg PO BID Neurological Condition 01/23/24
fluticasone propionate 50 mcg/actuation nasal spray,suspension 2 spray intranasal DAILY Allergies 01/23/24
ipratropium 0.5 mg-albuterol 3 mg (2.5 mg base)/3 mL nebulization soln 3 ml inhalation R Q6HPRN PRN sob/cough 01/23/24
latanoprost 0.005 % eye drops 1 drp BOTH EYES HS Eye Condition 01/23/24
lidocaine 5 % topical patch (Lidoderm) 1 patch topical DAILY b/l knees 01/23/24
melatonin 10 mg tablet 10 mg PO HS Sleep 01/23/24
methenamine hippurate 1 gram tablet 1 g PO BID Infection 01/23/24
omega-3 fatty acids 1,000 mg capsule 1,000 mg PO DAILY Supplement 01/23/24
pantoprazole 20 mg tablet,delayed release 20 mg PO DAILY Gastrointestinal Issue 01/23/24
polyvinyl alcohol 1.4 % eye drops (Artificial Tears (polyvinyl alcohol)) 1 drp BOTH EYES TID Eye Condition 01/23/24
sennosides 8.6 mg tablet (senna) 8.6 mg PO BID Constipation 01/23/24
sodium phosphates 19 gram-7 gram/118 mL enema (Fleet Enema) 118 ml [place] DAILYPRN PRN if dulcolax is ineffective in 24hrs 01/23/24
venlafaxine 75 mg capsule,extended release 24 hr 75 mg PO DAILY Mental Health/Anxiety 01/23/24
vibegron 75 mg tablet (Gemtesa) 75 mg PO DAILY Urinary Issue 01/23/24
vitamin B complex 1 tab PO DAILY Supplement 01/23/24
zinc oxide 10 % topical cream 1 applic topical DAILYPRN PRN rash on groin 01/23/24
bumetanide 1 mg tablet 1.5 mg (1.5 x 1 mg) PO BID #60 tabs 01/29/24
haloperidol 1 mg tablet 2 mg (2 x 1 mg) PO DAILY #30 tabs 02/02/24
Home Medication Changes
Depakote stopped
Haldol initiated
Pending Results: No
--- NOTE | 2024-02-02 13:10 | CM ---
Addendum entered by Mila Hare 02/02/24 13:40:
Ambulance transport scheduled for 6:00 p.m.
Original Note:
CM reviewed chart, discussed with psychiatrist, patient behavior improved, psych will sign off. Updated referral sent to [facility], confirmed can accept patient for return to [facility]. CM met with patient bedside, reviewed IMM, placed in chart. CM
will continue to follow for all discharge planning needs.
Plan; return to [facility], awaiting transportation.
Report: [phone]
[2024-02-02 15:00] VITALS: BP 116/78
[2024-02-02 18:24] VITALS: BP 116/78
== END 2024-02-02 19:46 | DRG 871 ==
LOC: 4 WEST ACU 23:01
PROVIDERS: Internal Medicine; Nurse Practitioner Family; Physician Assistant; ADMITTING PHYSICIAN Hospitalist; ATTENDING PHYSICIAN Internal Medicine; CONSULT PHYSICIAN Internal Medicine Cardiovascular Disease; CONSULT PHYSICIAN Internal Medicine Critical Care Medicine; EMERGENCY PHYSICIAN Student in an Organized Health Care Education/Training Program; FAMILY PHYSICIAN Internal Medicine; OTHER PHYSICIAN Psychiatry & Neurology Psychiatry
PROC: 5A09357 Assistance with Respiratory Ventilation, Less than 24 Consecutive Hours, Continuous Positive Airway Pressure (ICD-10-PCS; 2024-01-24)
DX: A41.9 Sepsis, unspecified organism (principal); G92.8 Other toxic encephalopathy; I50.33 Acute on chronic diastolic (congestive) heart failure; R65.21 Severe sepsis with septic shock; L03.116 Cellulitis of left lower limb; L03.115 Cellulitis of right lower limb; I69.351 Hemiplegia and hemiparesis following cerebral infarction affecting right dominant side; L97.229 Non-pressure chronic ulcer of left calf with unspecified severity; N17.9 Acute kidney failure, unspecified; Z68.43 Body mass index [BMI] 50.0-59.9, adult; E87.3 Alkalosis; F05 Delirium due to known physiological condition; F23 Brief psychotic disorder; I27.20 Pulmonary hypertension, unspecified; I11.0 Hypertensive heart disease with heart failure; E03.9 Hypothyroidism, unspecified; E78.00 Pure hypercholesterolemia, unspecified; F51.05 Insomnia due to other mental disorder; G89.29 Other chronic pain; F31.9 Bipolar disorder, unspecified; G43.909 Migraine, unspecified, not intractable, without status migrainosus; E66.01 Morbid (severe) obesity due to excess calories; I70.0 Atherosclerosis of aorta; E87.6 Hypokalemia; G47.33 Obstructive sleep apnea (adult) (pediatric); E87.5 Hyperkalemia; I73.9 Peripheral vascular disease, unspecified; K21.9 Gastro-esophageal reflux disease without esophagitis; R06.89 Other abnormalities of breathing; I87.8 Other specified disorders of veins; M10.9 Gout, unspecified; I48.0 Paroxysmal atrial fibrillation; I89.0 Lymphedema, not elsewhere classified; G25.0 Essential tremor; R05.9 Cough, unspecified; Z66 Do not resuscitate; Z87.442 Personal history of urinary calculi; Z79.890 Hormone replacement therapy; Z79.02 Long term (current) use of antithrombotics/antiplatelets; Z88.1 Allergy status to other antibiotic agents; Z88.3 Allergy status to other anti-infective agents; Z88.0 Allergy status to penicillin; Z88.2 Allergy status to sulfonamides; Z88.8 Allergy status to other drugs, medicaments and biological substances; Z79.51 Long term (current) use of inhaled steroids; Z87.440 Personal history of urinary (tract) infections
CPT/HCPCS: 71045; 71046; 80048; 80053; 80061; 80164; 80202; 81003; 81015; 82607; 82746; 82805; 82962; 83036; 83605; 83735; 83880; 84100; 84443; 84484; 85025; 85379; 85610; 85730; 87040; 87070; 87077; 87086; 87186; 93005; 93306; 93970; 94640; 94660; Q9950

== ENCOUNTER → 2024-05-23 09:25 | Outpatient (REF) | payer MEDICARE, OTHER, SELFPAY | LOC: HWRAD 09:25 | PROVIDERS: ATTENDING PHYSICIAN Urology; FAMILY PHYSICIAN Internal Medicine | DX: N39.0 Urinary tract infection, site not specified (principal) | CPT/HCPCS: 76770 ==